=== PATIENT | female | born 1950 | race Caucasian/White ===

== ENCOUNTER 2019-03-25 20:45 | Inpatient (IN) | payer MEDICARE, MEDICAID ==
--- NOTE | 2019-03-25 21:25 | RAD ---
XR Hip Lt 2-3 View History: Falls. Pain. Comparison: None. Findings: Nondisplaced intertrochanteric fracture left femur. There are also fractures of the right s uperior and inferior pelvic rami. Possible left iliac wing fracture. Impression: 1. Nondisplaced left intertrochanteric femur fracture. 2. Fractures of the right superior and inferior pubic rami. 3. Possible nondisplaced left iliac wing fracture. 4. Abnormal appearance right sacral struts concerning for sacral fracture.
[2019-03-26] MEDS ORDERED: Ondansetron PF 4 MG/2 ML Vial ONE (00:57)
[2019-03-26] MEDS ORDERED: Morphine 4 MG/ML VIAL ONE (00:59)
[2019-03-26 01:30] LABS: #Lymphocytes 0.7 thou/uL (1.20-3.40); #Monocytes 0.9 thou/uL (0.11-0.59); #Neutrophils 7.5 thou/uL (1.40-6.50); %Basophils 0.1 % (0.0-1.0); %Eosinophils 0.1 % (0.0-10.0); %Lymphocytes 7.8 % (21.0-51.0); %Monocytes 9.4 % (0.0-10.0); %Neutrophils 82.6 % (42.0-75.0); Hemoglobin 10.9 g/dL (12.0-16.0); Mean Corpuscular HGB CONC 32.2 g/dL (32.0-36.0); Mean Corpuscular Hemoglobin 30.8 pg (27.0-31.0); Mean Corpuscular Volume 95.6 fL (78.0-98.0); Mean Platelet Volume 8.5 fL (7.4-10.4); Platelet Count 190 thou/uL (130-400); Red Blood Cell (RBC) Count 3.55 mill/uL (4.20-5.40); White Blood Cell (WBC) Count 9.1 thou/uL (4.8-10.8)
[2019-03-26 01:45] LABS: INR-International Normal Ratio 1.7; PTT 32.8 SEC (22.9-36.1); Prothrombin Time 20.2 SEC (12.0-14.7)
[2019-03-26 01:53] LABS: ALT (SGPT) 62 U/L (8-55); AST (SGOT) 71 U/L (5-34); Alkaline Phosphatase 114 U/L (40-150); Anion Gap 17 mmol/L (10-20); BUN (Urea Nitrogen) 20 mg/dL (9.8-20.1); Bilirubin, Total 1.4 mg/dL (0.2-1.2); Calc. Creatinine Clearance 0 mL/min (70-130); Calcium 8.8 mg/dL (7.8-10.44); Carbon Dioxide 26 mmol/L (23-31); Chloride 93 mmol/L (98-107); Estimated GFR-MDRD 67; Globulin 3.2 g/dL (2.4-3.5); Glucose 128 mg/dL (80-115); Potassium 3.7 mmol/L (3.5-5.1); Protein, Total 6.2 g/dL (6.0-8.3); Sodium 132 mmol/L (136-145)
[2019-03-26] MEDS ORDERED: hydrALAZINE 20 MG/ML VIAL SLOW IVP PRN (01:53)
[2019-03-26] MEDS ORDERED: Morphine 2 MG/ML SYRINGE SLOW IVP PRN (01:53)
[2019-03-26] MEDS ORDERED: Dextrose 5% in Water 1,000 ML IV PRN (01:53)
[2019-03-26] MEDS ORDERED: Dextrose 50% Abboject 50 ML SYRINGE SLOW IVP PRN (01:53)
[2019-03-26 02:20] LABS: Magnesium 2.4 mg/dL (1.6-2.6); Phosphorus 3.8 mg/dL (2.3-4.7)
[2019-03-26 02:24] LABS: Bilirubin Small (Negative); Blood, Urine Negative (Negative); Clarity CLEAR (Clear); Glucose, Urine (Dipstick) Negative (Negative); Leukocyte Negative (Negative); Nitrite Negative (Negative); Protein, Urine (Dipstick) Negative (Neg-Trace)
--- NOTE | 2019-03-26 03:37 | HP ---
CONSULT: Orthopedic Surgery, Dr. Wiley. HISTORY OF PRESENT ILLNESS: This is a 68-year-old lady, who presented to the ER status post mechanical fall. The patient states that she was letting her dog in the house and the dog knocked her over landing on her left side and buttocks. The patient denies any loss of consciousness. The patient denies having any dizziness or chest pain, or shortness of breath prior to falling. The patient states that she was assisted by a family member after she fell and tried to go to the restroom and fell again landing on her right side. Denies any pain or injury from the second fall. The patient does take Coumadin for atrial fibrillation. The patient denies hitting her head. The patient recently underwent a left catheterization by Dr. Machado approximately 2 weeks ago, as the patient had recent ICD discharge for ventricular tachycardia and ventricular fibrillation. The patient's daughter is concerned about recent weight loss and generalized weakness. Also, reports multiple falls in the last couple of years. The patient's daughter also concerned with malnutrition as the patient has celiac disease and eats a gluten free diet. PAST MEDICAL HISTORY: Coronary artery disease, asthma, COPD, osteoporosis, scoliosis, lupus erythematosus, peptic ulcer disease, sinus node dysfunction, dyslipidemia, myocardial infarction, atrial fibrillation, congestive heart failure. PAST SURGICAL HISTORY: Hysterectomy, toe surgery, coronary artery bypass graft x4, stent placement, pacemaker, internal celiac disease, right hip surgery and right wrist surgery. ALLERGIES: NO KNOWN DRUG ALLERGIES. GLUTEN ALLERGY. SOCIAL HISTORY: The patient lives with her daughter, former smoker. Denies alcohol use, denies drug use. MEDICATIONS: 1. Carvedilol 3.125 mg one tab twice a day. 2. Aspirin 81 mg once a day. 3. Flonase 50 mcg one spray once a day. 4. Metolazone 2.5 mg once daily. 5. Advair. 6. Omeprazole 40 mg. 7. Potassium chloride ER 20 mEq daily. 8. Ipratropium albuterol inhaler. 9. Ventolin HFA. 10. Tirosint 100 mcg one capsule oral every day except Thursday and Thursday. 11. Warfarin 2 mg daily except on Wednesdays and Saturdays only take half tablet. 12. Amiodarone 200 mg, take one tablet once a day. 13. Torsemide 20 mg two tablets once a day. 14. Simvastatin 40 mg. 15. Singulair 10 mg daily. 16. Losartan potassium 25 mg. 17. Coreg 3.125. REVIEW OF SYSTEMS: A 10-point review of systems is negative unless otherwise indicated in the above HPI. PHYSICAL EXAMINATION: VITAL SIGNS: Blood pressure 94/58, pulse 62, respirations 16, temperature 98.1, SpO2 94%. GENERAL: Awake, alert, moderate distress due to pain, frail appearing. HEENT: Head is atraumatic and normocephalic. Pupils are equal, round, and reactive. Mucous membranes moist. Trachea is midline. No JVD. RESPIRATORY: Clear bilaterally. No wheezing, rales, or rhonchi. Equal chest expansion. No distress. CARDIAC: Regular rate, regular rhythm. S1 and S2. No murmurs. No pedal edema. ABDOMEN: Soft, nontender, nondistended. Active bowel sounds. EXTREMITIES: Moves all extremities. No pedal edema. Distal pulses 2+ in all extremities. Tenderness to left hip. NEUROLOGIC: Alert and oriented times person, place, time, and event. No focal deficit. LABORATORY DATA: WBC 9.1, RBC 3.55, hemoglobin 10.9, hematocrit 33.9, platelets 190. PT 20.2, INR 1.7, APTT 32.8. Sodium 132, potassium 3.7, chloride 93, carbon dioxide 26, anion gap 17, BUN 20, creatinine 0.85, estimated GFR 67, glucose 128 , calcium 8.8, total bilirubin 1.4, AST 71, ALT 62, alkaline phos 114, albumin 3.0 , globulin 3.2. Urinalysis pending. DIAGNOSTICS: EKG, AV dual paced. Right hip x-ray, nondisplaced left intertrochanteric femur fracture. Fractures of the right superior and inferior pubic rami. Possible nondisplaced left iliac wing fracture. Abnormal appearance right sacral struts, concerning for sacral fracture. Chest x-ray, hyperinflated, cardiomegaly. Pelvis x-ray, pending official read. IMPRESSION: 1. Status post mechanical fall. 2. Left nondisplaced intertrochanteric femur fracture. 3. Fractures of the right superior and inferior pubic rami. 4. Nondisplaced left iliac wing fracture. 5. Sacral fracture. 6. Hyponatremia. 7. Sarcopenia. 8. History of celiac disease. 9. History of atrial fibrillation, rate controlled, pacemaker, ICD, history of congestive heart failure, history of chronic obstructive pulmonary disease. PLAN: We will admit the patient to the surgical ortho floor. Orthopedic Surgery has been consulted, pending evaluation. We will place the patient n.p.o. We will place the patient on IV maintenance fluids. We will replace electrolytes. We will hold Coumadin. We will place the patient on a pain regimen. We will place a PT /OT screen and also a rehab screen. We will place the patient on a gluten free diet after OR. We will also consult dietary as the patient seems to be malnourished. Plan will be discussed with the attending trauma surgeon after this dictation. Job ID: [id number] MTDD
[2019-03-26] MEDS: Sodium Chloride 0.9% 1,000 ML IV SCH ×3 (04:14→23:28)
[2019-03-26] MEDS: Ondansetron PF 4 MG/2 ML Vial IVP PRN ×2 (04:57→13:45)
[2019-03-26] MEDS: traMADol HCl 50 MG TAB PO SCH ×4 (05:02→23:20)
[2019-03-26] MEDS: Acetaminophen 1,000 MG in Premix Bag 1 BAG IVPB SCH ×4 (05:02→23:18)
[2019-03-26] MEDS: Ibuprofen 200 MG TAB PO SCH ×3 (05:03→23:19)
[2019-03-26] MEDS ORDERED: Carvedilol 3.125 MG TAB PO SCH (07:00)
--- NOTE | 2019-03-26 08:08 | RAD ---
EXAM: XR Chest 1 View Portable PROVIDED CLINICAL HISTORY: Preop COMPARISON: None FINDINGS: Cardiac silhouette is enlarged. Median sternotomy changes are noted. Left subclavian cardiac pacing d evice is noted with the tips overlying the expected locations of RA, RV and coronary sinus. No focal consolidation, pleural fluid or pneumothorax apparent. IMPRESSION: No evidence for an acute cardiopulmonary process.
--- NOTE | 2019-03-26 08:09 | RAD ---
EXAM: XR Pelvis AP STANDARD PROVIDED CLINICAL HISTORY: Trauma COMPARISON: Left hip radiographs performed 03/25/2019 FINDINGS: Left proximal femoral fracture as previously described redemonstrated. Postoperative changes are note d involving the right hip without evidence for hardware complication. No additional fracture is evident with limitations due to radiographic technique and bowel gas overlying the pelvis. IMPRESSION: Left hip fracture is redemonstrated.
[2019-03-26] MEDS: Polyethylene Glycol 3350 17 GM Packet PO SCH (09:04)
[2019-03-26] MEDS: Senokot S 8.6-50 MG TAB PO SCH ×2 (09:04→23:19)
[2019-03-26 09:57] LABS: INR-International Normal Ratio 1.8; PTT 43.2 SEC (22.9-36.1)
[2019-03-26] MEDS ORDERED: Phytonadione 10 MG in Sodium Chloride 0.9% 50 ML IVPB SCH (12:15)
[2019-03-26] MEDS ORDERED: Phytonadione 10 MG/ML AMP PO SCH ×2 (12:15→22:15)
--- NOTE | 2019-03-26 14:53 | PRG ---
DATE OF SERVICE: 03/26/2019 SUBJECTIVE: This is a 68-year-old lady, who presented to the ER status post mechanical fall. The patient was knocked down by her dog causing her to land on her left side and buttocks. The patient reports no overnight events. The patient's pain seems to be well controlled at this time. OBJECTIVE: VITAL SIGNS: Temperature 98.0, pulse 63, respirations 14, SpO2 of 94% on room air, blood pressure 95/47. GENERAL: The patient awake, alert, in no distress. Elderly appearing female. RESPIRATORY: Clear bilateral, equal chest rise and fall, no distress. CARDIAC: Regular rate, regular rhythm. ABDOMEN: Soft, nontender, nondistended. EXTREMITIES: Moves all extremities, no pedal edema. LABORATORY DATA: Repeat PT 21.0, INR 1.8, APTT 43.2. IMPRESSION: 1. Status post mechanical fall. 2. Left nondisplaced intertrochanteric femur fracture. 3. Fractures of the right superior and right inferior pubic rami. 4. Nondisplaced left iliac wing fracture. 5. Sacral fracture. 6. Hyponatremia. 7. Sarcopenia. 8. History of celiac disease. 9. History of atrial fibrillation, rate controlled, pacemaker, ICD, history of congestive heart failure, history of chronic obstructive pulmonary disease. PLAN: Continue pain regimen. We will feed the patient a gluten free diet today as it has been recommended to hold off on surgical repair as the patient's INR is 1.8 and anesthesiology prefers it to be 1.4. Anesthesiology has consulted hospital medicine for reversal of Coumadin with vitamin K. We will continue the patient's pain regimen. We will have PT/OT see the patient postop. We will add Ensure to the patient's diet with meals. Plan was discussed with the attending physician, who agrees. Plan was also discussed with the patient, who agrees. Job ID: [id number]
[2019-03-26] MEDS ORDERED: Sodium Chloride 0.9% 500 ML IV SCH (16:00)
[2019-03-26 16:33] LABS: Hemoglobin 8.5 g/dL (12.0-16.0)
--- NOTE | 2019-03-26 17:27 | PRG ---
DATE OF SERVICE: 03/26/2019 SUBJECTIVE: A 68-year-old female patient, admitted by Corin Campo NP, has a left hip fracture, history of celiac disease, atrial fibrillation, pacemaker, has a left iliac wing fracture, right superior and inferior pubic rami fracture. At home, on Coumadin. PT [address] Wiley had seen her and planning ORIF of her hip as soon as her INR is more normalized. The patient overall is comfortable without complaints. LABORATORY DATA: Otherwise unremarkable, although hemoglobin is 8.5 this morning. Basic metabolic profile normal. Sodium 132. OBJECTIVE: LUNGS: Clear to auscultation. CARDIAC: Regular rate and rhythm. ABDOMEN: Soft. PLAN: Await INR normalization prior to ORIF of hip. Anemia, typed and crossed for 2 units of blood, but hold off transfusion. Job ID: [id number]
--- NOTE | 2019-03-26 17:51 | CON ---
DATE OF CONSULTATION: CHIEF COMPLAINT: Left hip pain. HISTORY OF PRESENT ILLNESS: Ms. Peraza is a 68-year-old female, who fell yesterday. She was letting her dog out of the house when she lost balance. She fell on the left side. She landed hard. She had pain. She was unable to ambulate. She actually was assisted up, but then subsequently fell again. The patient was taken to the Emergency Department by EMS. She has been found to have a left intertrochanteric femur fracture. She has a history of right hip DHS fixation for similar fracture. She was in the hospital recently with Dr. Machado two weeks ago for ventricular tachycardia. PAST MEDICAL HISTORY: Coronary artery disease, asthma, COPD, osteoporosis, scoliosis, lupus, peptic ulcer disease, atrial fibrillation, myocardial infarction, hyperlipidemia, and CHF. PAST SURGICAL HISTORY: Previous hysterectomy, previous right proximal femur fixation for fracture, stent placement, coronary artery bypass graft, right distal radius surgery and foot surgery. ALLERGIES: NO KNOWN DRUG ALLERGIES. SOCIAL HISTORY: The patient denies tobacco, alcohol, or drug use. She lives with her daughter. MEDICATIONS: The patient is on Coumadin. LABORATORY DATA: Her recent INR was 1.7. IMAGES: X-rays of the pelvis and hip demonstrate a very mildly displaced intertrochanteric femur fracture of the left hip. PHYSICAL EXAMINATION: VITAL SIGNS: Temperature is 98, pulse 63, respiratory rate 14, oxygen saturation 94%, and blood pressure is 95/47. GENERAL: She is alert and oriented, sitting upright, in no apparent distress. RESPIRATORY: Breathing comfortably. ABDOMEN: Nondistended and nontender. CARDIOVASCULAR: Pulses regular, palpable peripherally. MUSCULOSKELETAL: The patient's left leg has pain with motion. She has no significant shortening. She does have neurovascular intact status distally. No skin laceration or tear. Upper extremities are atraumatic. IMPRESSION: Left intertrochanteric femur fracture in an elderly female with multiple medical problems. PLAN: At this point, the patient will need operative intervention for her femur. I would plan for dynamic hip screw fixation to restore strength to the proximal femur and allow her to mobilize. Goal will be to prevent complications of prolonged bedrest. She is at elevated risk of complication from surgery given her cardiac history as well as her lung history. She will need to continue to hold her Coumadin. It is still slightly high for surgery today. If it is improved tomorrow, we will proceed. She wants to proceed with surgery and is aware of risks given she has been through a similar procedure in the past. She will be n.p.o. at midnight. She will have appropriate consent. She will have DVT prophylaxis and antibiotic prophylaxis. Job ID: [id number]
[2019-03-26 20:05] LABS: INR-International Normal Ratio 1.6; Prothrombin Time 19.4 SEC (12.0-14.7)
--- NOTE | 2019-03-26 22:04 | PDOC.PN ---
- Subjective Encounter Start Date: 03/26/19 Encounter Start Time: 14:00 Patient seen and examined for elevated INR. No new complaints. No overnight events - Objective MAR Reviewed: Yes Vital Signs & Weight: Vital Signs (12 hours) Temp Pulse Resp BP Pulse Ox 03/26/19 20:00 98.6 F 65 18 95/41 L 95 03/26/19 18:12 101/56 L 03/26/19 17:30 88/50 L 03/26/19 16:00 97.9 F 93 12 84/46 L 92 L 03/26/19 15:40 74/39 L 03/26/19 15:39 90/39 L 03/26/19 11:30 97.9 F 60 18 91/49 L 94 L Weight Admit Weight 85 lb Weight 85 lb 8 oz I&O: 03/25/19 03/26/19 03/27/19 06:59 06:59 06:59 Intake Total 150 Output Total 450 Balance -300 Result Diagrams: 03/27/19 03:19 03/27/19 03:19 Radiology Reviewed by me: Yes (CXR - No infiltrate) Phys Exam - Physical Examination Constitutional: NAD Respiratory: no wheezing, no rhonchi Cardiovascular: RRR, no rub Gastrointestinal: soft, non-tender, positive bowel sounds Musculoskeletal: no edema Neurological: moves all 4 limbs Dx/Plan - Plan DVT proph w/SCDs IMPRESSION: Elevated INR 1.8 due to Warfarin Chronic Anemia CKD 2 PLAN: Will try 10 mg PO Vit K to bring INR below 1.4 for spinal anesthesia. Will recheck INR later today and in AM Full code. DPOA - self/family Thank you for this consultation. Will sign off if INR <1.4 Review of Systems - Review of Systems Respiratory: negative: Cough, Dry, Shortness of Breath, Hemoptysis, SOB with Excertion, Pleuritic Pain, Sputum, Wheezing Cardiovascular: negative: chest pain, palpitations, orthopnea, paroxysmal nocturnal dyspnea, edema, light headedness, other - Medications/Allergies Allergies/Adverse Reactions: Allergies Allergy/AdvReac Type Severity Reaction Status Date / Time gluten Allergy Verified 03/26/19 04:01 ibuprofen AdvReac Verified 03/26/19 07:28 Medications: Current Medications Albuterol/Ipratropium (Duoneb) 3 ml NEB Q4H PRN PRN Reason: Wheezing Dextrose/Water (Dextrose 50%) 25 gm SLOW IVP PRN PRN PRN Reason: Hypoglycemia Glucagon (Glucagon) 1 mg IM PRN PRN PRN Reason: Hypoglycemia Hydralazine HCl (Apresoline) 10 mg SLOW IVP Q4H PRN PRN Reason: SBP > 170 or DBP > 100 Hydrocortisone Sodium Succinate (Solu-Cortef) 25 mg IVP Q6HR [facility] Dextrose/Water (D5w) 1,000 mls @ 0 mls/hr IV .Q0M PRN PRN Reason: Hypoglycemia Sodium Chloride (Normal Saline 0.9%) 1,000 mls @ 75 mls/hr IV .[id number] [facility] Last Admin: 03/26/19 16:09 Dose: 1,000 mls Acetaminophen 1,000 mg/ Device 100 mls @ 400 mls/hr IVPB Q6HR [facility] Stop: 03/27/19 00:13 Last Admin: 03/26/19 18:08 Dose: 100 mls Cefazolin Sodium/Dextrose 2 gm (/ Device) 50 mls @ 100 mls/hr IVPB 0800,1600, 2359 [facility] Ibuprofen (Motrin) 400 mg PO Q8HR [facility] Last Admin: 03/26/19 15:16 Dose: Not Given Levothyroxine Sodium (Synthroid) 50 mcg PO SuSa@0600 [facility] Levothyroxine Sodium (Synthroid) 100 mcg PO MoTuWeThFr@0600 [facility] Morphine Sulfate (Morphine) 2 mg SLOW IVP Q2H PRN PRN Reason: Mild Pain (1-3) Last Admin: 03/26/19 04:15 Dose: 2 mg Ondansetron HCl (Zofran Odt) 4 mg PO Q6H PRN PRN Reason: Nausea/Vomiting Ondansetron HCl (Zofran) 4 mg IVP Q6H PRN PRN Reason: Nausea Last Admin: 03/26/19 13:45 Dose: 4 mg Pantoprazole Sodium (Protonix) 40 mg PO DAILY [facility] Phytonadione (Aquamephyton) 5 mg PO NOW [facility] Polyethylene Glycol (Miralax) 17 gm PO DAILY [facility] Last Admin: 03/26/19 09:04 Dose: Not Given Senna/Docusate Sodium (Senokot S) 2 tab PO BID [facility] Last Admin: 03/26/19 09:04 Dose: Not Given Sodium Chloride (Flush - Normal Saline) 10 ml IVF PRN PRN PRN Reason: Saline Flush Tramadol HCl (Ultram) 50 mg PO Q6HR [facility] Last Admin: 03/26/19 18:07 Dose: 50 mg Tramadol HCl (Ultram) 50 mg PO Q6H PRN PRN Reason: Breakthrough Pain
[2019-03-26] MEDS: Hydrocortisone Sod Succ/PF 100 mg/2 ml Vial IVP SCH (23:20)
[2019-03-26] MEDS: Ondansetron ODT 4 MG TAB PO PRN (23:24)
[2019-03-27 04:04] LABS: #Lymphocytes 0.6 thou/uL (1.20-3.40); #Monocytes 0.4 thou/uL (0.11-0.59); #Neutrophils 5.5 thou/uL (1.40-6.50); %Basophils 0.5 % (0.0-1.0); %Eosinophils 0.2 % (0.0-10.0); %Lymphocytes 8.8 % (21.0-51.0); %Monocytes 5.4 % (0.0-10.0); %Neutrophils 85.1 % (42.0-75.0); Hemoglobin 9.7 g/dL (12.0-16.0); Mean Corpuscular HGB CONC 31.9 g/dL (32.0-36.0); Mean Corpuscular Hemoglobin 30.6 pg (27.0-31.0); Mean Corpuscular Volume 95.9 fL (78.0-98.0); Mean Platelet Volume 8.3 fL (7.4-10.4); Platelet Count 183 thou/uL (130-400); RBC Distribution Width 14.9 % (11.5-14.5); Red Blood Cell (RBC) Count 3.18 mill/uL (4.20-5.40); White Blood Cell (WBC) Count 6.5 thou/uL (4.8-10.8)
[2019-03-27 04:09] LABS: INR-International Normal Ratio 1.3
[2019-03-27 04:47] LABS: Anion Gap 9 mmol/L (10-20); BUN (Urea Nitrogen) 16 mg/dL (9.8-20.1); Calc. Creatinine Clearance 44 mL/min (70-130); Calcium 8.4 mg/dL (7.8-10.44); Carbon Dioxide 29 mmol/L (23-31); Chloride 102 mmol/L (98-107); Estimated GFR-MDRD 77; Glucose 128 mg/dL (80-115); Magnesium 2.1 mg/dL (1.6-2.6); Phosphorus 2.5 mg/dL (2.3-4.7); Potassium 3.7 mmol/L (3.5-5.1); Sodium 136 mmol/L (136-145)
[2019-03-27] MEDS: Levothyroxine Sodium 50 MCG TAB PO SCH (05:54)
[2019-03-27] MEDS: Hydrocortisone Sod Succ/PF 100 mg/2 ml Vial IVP SCH ×4 (05:55→23:53)
[2019-03-27] MEDS: traMADol HCl 50 MG TAB PO SCH ×4 (05:55→23:53)
[2019-03-27] MEDS: CEFAZOLIN 2 GM in Premix Bag 1 BAG IVPB SCH ×3 (08:00→23:51)
[2019-03-27] MEDS ORDERED: HYDROmorphone 2 MG/ML VIAL ONE (08:17)
[2019-03-27] MEDS ORDERED: Glycopyrrolate 0.2 MG/ML 5 ML SYRINGE ONE ×2 (08:17→13:50)
[2019-03-27] MEDS ORDERED: Fentanyl 100 MCG/2 ML VIAL ONE ×2 (08:18→10:02)
[2019-03-27] MEDS: Polyethylene Glycol 3350 17 GM Packet PO SCH (09:00)
[2019-03-27] MEDS: Senokot S 8.6-50 MG TAB PO SCH ×2 (09:00→20:47)
[2019-03-27] MEDS ORDERED: SUGAMMADEX SODIUM 200 MG/2 ML VIAL ONE (09:35)
[2019-03-27] MEDS ORDERED: HYDROmorphone 2 MG/ML VIAL SLOW IVP PRN (09:44)
[2019-03-27] MEDS ORDERED: Promethazine HCl 25 MG/ML VIAL SLOW IVP PRN (09:44)
[2019-03-27] MEDS ORDERED: Promethazine HCl 25 MG/ML VIAL IM PRN (09:44)
[2019-03-27] MEDS ORDERED: Ondansetron HCl/PF 4 MG/2 ML Vial IVP PRN (09:44)
[2019-03-27] MEDS ORDERED: Morphine Sulfate 2 MG/ML SYRINGE SLOW IVP PRN (09:44)
--- NOTE | 2019-03-27 11:25 | RAD ---
EXAM: XR Hip Lt 2-3 View PROVIDED CLINICAL HISTORY: ORIF left hip COMPARISON: None FINDINGS: Spot fluoroscopic frontal and lateral views of left hip demonstrate interval internal fixation of pre viously described left proximal femoral fracture. IMPRESSION: As above.
--- NOTE | 2019-03-27 12:25 | OP ---
DATE OF PROCEDURE: 03/27/2019 PROCEDURE PERFORMED: Open reduction and fixation of left intertrochanteric femur fracture with dynamic hip screw and plate. PREOPERATIVE DIAGNOSIS: Left intertrochanteric femur fracture. POSTOPERATIVE DIAGNOSIS: Left intertrochanteric femur fracture. COMPLICATIONS: None. ESTIMATED BLOOD LOSS: 100 mL. IMPLANT: Synthes 3-hole 135 degree dynamic hip screw and plate. INDICATIONS: Ms. Peraza is a 68-year-old female, who has fallen. She fractured the left proximal femur. She was indicated for open reduction and fixation to restore anatomic alignment and stabilize the femur, so that she can mobilize. Risks have been reviewed in detail. She has elected to proceed with the operation. DESCRIPTION OF PROCEDURE: Ms. Peraza was identified in the preoperative holding area. Her correct extremity was marked. She was carried to the operating room. She was positioned supine. General anesthesia was induced. A multidisciplinary time-out was performed. The left lower extremity was prepped and draped in sterile fashion. We began the procedure with reduction of the fracture on the traction table. We pulled traction and rotation. We took x-ray images confirming reduction was complete. At this point, we made a small incision over the lateral thigh. We dissected down through the subcutaneous tissues to the fascia, which was opened. We then anteriorly retracted the vastus lateralis. We split the lateralis posteriorly. We cleared the soft tissues from the bony cortex. At this point, we applied a 135 degree guide. We placed a guide pin in the center position of the femoral head. We then proceeded to over-ream the guide pin. We measured an appropriate length. We placed a 95 mm screw. We placed a 3-hole side plate. Three screws were placed in the plate. At this point, we took final images in orthogonal planes. We thoroughly irrigated and closed with #1 Vicryl suture, 2-0 Vicryl suture, and nilson for the skin. A sterile dressing was applied. The patient was taken to the recovery room in good condition. Job ID: [id number]
[2019-03-27] MEDS ORDERED: Lidocaine 1% PF 5 ML VIAL ONE (13:50)
[2019-03-27] MEDS ORDERED: Dexamethasone 20 MG/5 ML VIAL ONE (13:50)
[2019-03-27] MEDS ORDERED: PROPOFOL 200 MG/20 ML VIAL ONE (13:50)
[2019-03-27] MEDS ORDERED: Ondansetron PF 4 MG/2 ML Vial ONE (13:50)
[2019-03-27] MEDS: Sodium Chloride 0.9% 1,000 ML IV SCH (16:07)
[2019-03-27] MEDS: Mometasone/Formoterol 120 PUFF INHALER INH SCH (19:46)
[2019-03-27] MEDS: Montelukast Sodium 10 mg Tablet PO SCH (20:47)
--- NOTE | 2019-03-27 23:44 | PRG ---
DATE OF SERVICE: 03/27/2019 SUBJECTIVE: This is a 68-year-old lady who presented to the ER status post mechanical fall. The patient is postop day zero status post open reduction and internal fixation of left intertrochanteric femur fracture with dynamic hip screw and plate. The patient had no overnight events. The patient is just arriving to the room from PACU. The patient is awake, alert, no distress. Reports the pain is well controlled. OBJECTIVE: VITAL SIGNS: Temperature 98.5, pulse 65, respirations 20, SpO2 of 98% on room air, blood pressure 107/55. GENERAL: Elderly, frail-appearing female, awake, alert, in no distress. RESPIRATORY: Bilateral breath sounds clear, no distress. CARDIAC: Regular rate, regular rhythm. EXTREMITIES: Moves all extremities. No pedal edema, left hip dressing clean, dry, and intact. IMPRESSION: 1. Status post mechanical fall. 2. Left nondisplaced intertrochanteric femur fracture. 3. History of celiac disease. 4. History of atrial fibrillation, rate controlled, pacemaker, history of congestive heart failure and chronic obstructive pulmonary disease. PLAN: 1. Continue pain regimen. We will restart the patient's gluten free diet. 2. Plan for PT, OT to work with the patient today postop. The patient is pending rehab screen. Plan was discussed with the attending physician, who agrees. Job ID: [id number]
[2019-03-27] MEDS: Ondansetron ODT 4 MG TAB PO PRN (23:53)
[2019-03-28 04:38] LABS: #Lymphocytes 0.6 thou/uL (1.20-3.40); #Monocytes 0.9 thou/uL (0.11-0.59); #Neutrophils 12.6 thou/uL (1.40-6.50); %Basophils 0.1 % (0.0-1.0); %Eosinophils 0.1 % (0.0-10.0); %Monocytes 6.2 % (0.0-10.0); %Neutrophils 89.6 % (42.0-75.0); Hemoglobin 8.3 g/dL (12.0-16.0); Mean Corpuscular Hemoglobin 30.7 pg (27.0-31.0); Platelet Count 224 thou/uL (130-400); White Blood Cell (WBC) Count 14.1 thou/uL (4.8-10.8)
[2019-03-28] MEDS: Levothyroxine Sodium 100 MCG TAB PO SCH (06:33)
[2019-03-28] MEDS: traMADol HCl 50 MG TAB PO SCH ×4 (06:33→23:51)
[2019-03-28] MEDS: Ondansetron ODT 4 MG TAB PO PRN ×2 (06:33→23:51)
[2019-03-28] MEDS: Hydrocortisone Sod Succ/PF 100 mg/2 ml Vial IVP SCH ×4 (06:33→23:51)
[2019-03-28] MEDS: Mometasone/Formoterol 120 PUFF INHALER INH SCH ×2 (07:10→18:56)
[2019-03-28] MEDS ORDERED: Warfarin Sodium 5 MG TAB PO SCH (08:45)
[2019-03-28] MEDS ORDERED: Aspirin 81 mg Enteric Coated Tablet PO SCH ×2 (09:00)
[2019-03-28] MEDS ORDERED: Potassium Chloride 10 MEQ TAB PO SCH (09:00)
[2019-03-28] MEDS ORDERED: Amiodarone 200 MG TAB PO SCH (09:00)
[2019-03-28 09:08] LABS: #Lymphocytes 0.7 thou/uL (1.20-3.40); #Monocytes 1.4 thou/uL (0.11-0.59); #Neutrophils 13.1 thou/uL (1.40-6.50); %Eosinophils 0.2 % (0.0-10.0); %Lymphocytes 4.8 % (21.0-51.0); %Monocytes 9.1 % (0.0-10.0); %Neutrophils 85.9 % (42.0-75.0); Hemoglobin 8.7 g/dL (12.0-16.0); Mean Corpuscular HGB CONC 31.2 g/dL (32.0-36.0); Mean Corpuscular Hemoglobin 29.9 pg (27.0-31.0); Mean Corpuscular Volume 95.9 fL (78.0-98.0); Mean Platelet Volume 7.6 fL (7.4-10.4); Platelet Count 258 thou/uL (130-400); RBC Distribution Width 15.2 % (11.5-14.5); Red Blood Cell (RBC) Count 2.92 mill/uL (4.20-5.40); White Blood Cell (WBC) Count 15.2 thou/uL (4.8-10.8)
[2019-03-28] MEDS: Polyethylene Glycol 3350 17 GM Packet PO SCH ×2 (10:30)
[2019-03-28] MEDS: Aspirin 81 mg Enteric Coated Tablet PO SCH ×2 (10:30→20:37)
[2019-03-28] MEDS: Ferrous Sulfate 325 MG TAB PO SCH ×2 (10:31→16:03)
[2019-03-28] MEDS: Carvedilol 3.125 MG TAB PO SCH ×3 (10:31→20:55)
[2019-03-28] MEDS: Senokot S 8.6-50 MG TAB PO SCH ×2 (10:31→20:55)
[2019-03-28] MEDS: Ascorbic Acid 500 mg Chewable Tablet PO SCH ×2 (10:32→16:03)
[2019-03-28] MEDS: CEFAZOLIN 2 GM in Premix Bag 1 BAG IVPB SCH (10:32)
[2019-03-28] MEDS: Fluticasone Propionate Nasal Spray 16 gm Bottle NASAL SCH (10:42)
[2019-03-28] MEDS: Ibuprofen 800 MG TAB PO SCH ×2 (11:06→18:00)
--- NOTE | 2019-03-28 13:09 | PRG ---
DATE OF SERVICE: 03/28/2019 SUBJECTIVE: A 68-year-old female, status post mechanical fall. Postop day 1 from open reduction and internal fixation of left intertrochanteric femur fracture with dynamic hip screw and plate. No overnight events. The patient's pain is well controlled with medications. Nursing reports, the patient has not been drinking Ensure Enlive and she has had a poor appetite. The patient said she is willing to start drinking these for protein supplementation. OBJECTIVE: VITAL SIGNS: Blood pressure 80/48, temperature 97.9, pulse 77, respirations 14, and SpO2 of 88% on room air. GENERAL: Thin female, awake and alert, in no acute distress. HEENT: Atraumatic and normocephalic. NECK: Trachea midline, supple. RESPIRATORY: Normal respiratory effort. Equal chest rise and fall. CARDIAC: No peripheral edema. EXTREMITIES: Moves all extremities. Left hip dressing clean, dry, and intact. LABORATORY DATA: Hemoglobin 8.7, hematocrit 28, and white blood cell count 15.2. DIAGNOSTIC IMAGING: No new diagnostics to review. SECONDARY IMPRESSION: 1. Status post mechanical fall. 2. Left nondisplaced intertrochanteric femur fracture. 3. Celiac disease. 4. Atrial fibrillation, status post pacemaker placement. 5. Congestive heart failure. 6. Chronic obstructive pulmonary disease. PLAN: Continue the patient's current pain regimen. Continue gluten-free diet with Ensure Enlive t.i.d. The patient will continue physical and occupational therapy. She is pending her rehab screen at this time. Continue current bowel regimen. We will discontinue Young at this time. We will resume the patient's warfarin with dose of 5 mg today and monitor PT/INRs daily. She is status post vitamin K, it will likely take several days to get the patient to therapeutic range. In regard to her home medication, we will start the patient on aspirin b.i.d. until her INR is within therapeutic range. We will restart low-dose Coreg. Hold losartan due to borderline low BPs and resume once indicated. We will resume the patient's home potassium chloride. This patient was seen and evaluated by Dr. Saavedra during morning rounds. Plan was discussed with the patient, who is in agreement with the plan. Job ID: [id number] [facility]
[2019-03-28] MEDS: Gabapentin 100 MG CAP PO SCH ×2 (16:03→20:55)
[2019-03-28] MEDS: Warfarin Sodium 5 MG TAB PO SCH (16:03)
[2019-03-28] MEDS: Montelukast Sodium 10 mg Tablet PO SCH (20:37)
[2019-03-28] MEDS: Atorvastatin Calcium 20 MG TAB PO SCH (20:37)
[2019-03-28] MEDS: Amiodarone 200 MG TAB PO SCH (21:16)
[2019-03-28] MEDS: Sodium Chloride 0.9% 1,000 ML IV SCH (22:38)
[2019-03-29] MEDS: Ibuprofen 800 MG TAB PO SCH (03:24)
[2019-03-29] MEDS: traMADol HCl 50 MG TAB PO SCH ×4 (05:39→23:51)
[2019-03-29] MEDS: Hydrocortisone Sod Succ/PF 100 mg/2 ml Vial IVP SCH ×4 (05:40→23:15)
[2019-03-29] MEDS: Levothyroxine Sodium 100 MCG TAB PO SCH (05:40)
[2019-03-29] MEDS ORDERED: Sodium Chloride 0.9% 500 ML IVPB SCH (06:00)
[2019-03-29 06:13] LABS: Hemoglobin 8.4 g/dL (12.0-16.0); Mean Corpuscular HGB CONC 31.7 g/dL (32.0-36.0); Mean Corpuscular Hemoglobin 30.4 pg (27.0-31.0); Mean Corpuscular Volume 95.8 fL (78.0-98.0); Platelet Count 231 thou/uL (130-400); RBC Distribution Width 15.4 % (11.5-14.5); Red Blood Cell (RBC) Count 2.76 mill/uL (4.20-5.40); White Blood Cell (WBC) Count 12.9 thou/uL (4.8-10.8)
[2019-03-29 06:30] LABS: INR-International Normal Ratio 1.1; Prothrombin Time 14.6 SEC (12.0-14.7)
[2019-03-29 06:31] LABS: PTT 29.6 SEC (22.9-36.1)
[2019-03-29 06:33] LABS: Anion Gap 11 mmol/L (10-20); BUN (Urea Nitrogen) 31 mg/dL (9.8-20.1); Calc. Creatinine Clearance 26 mL/min (70-130); Calcium 8.4 mg/dL (7.8-10.44); Carbon Dioxide 24 mmol/L (23-31); Chloride 105 mmol/L (98-107); Estimated GFR-MDRD 42; Glucose 128 mg/dL (80-115); Potassium 4.6 mmol/L (3.5-5.1); Sodium 135 mmol/L (136-145)
[2019-03-29] MEDS: Mometasone/Formoterol 120 PUFF INHALER INH SCH ×2 (07:03→18:21)
[2019-03-29] MEDS: Senokot S 8.6-50 MG TAB PO SCH ×2 (08:37→23:11)
[2019-03-29] MEDS: Ascorbic Acid 500 mg Chewable Tablet PO SCH ×2 (08:37→17:17)
[2019-03-29] MEDS: Ferrous Sulfate 325 MG TAB PO SCH ×2 (08:37→17:31)
[2019-03-29] MEDS: Gabapentin 100 MG CAP PO SCH ×3 (08:37→23:12)
[2019-03-29] MEDS: Aspirin 81 mg Enteric Coated Tablet PO SCH ×2 (08:37→23:12)
[2019-03-29] MEDS: Carvedilol 3.125 MG TAB PO SCH ×2 (08:38→23:12)
[2019-03-29] MEDS: Polyethylene Glycol 3350 17 GM Packet PO SCH (08:38)
[2019-03-29] MEDS: Fluticasone Propionate Nasal Spray 16 gm Bottle NASAL SCH (08:38)
[2019-03-29] MEDS ORDERED: Furosemide 40 MG/4 ML VIAL ONE ×2 (11:34→16:01)
[2019-03-29 11:36] LABS: Actual Bicarbonate (HCO3a) 22.5 mEq/L (22-28); Base Excess (BEa) -3.5 mEq/L (-2.0 to +3.0); CO2 Tension 44.6 mmHg (35.0-45.0); Calcium, Ionized 1.19 mmol/L (1.12-1.30); Carboxyhemoglobin (COHb) 1.2 gm% (0.0-3.0); Hemoglobin (Hb) 9.7 g/dL (12.0-16.0); Potassium - ABG Lab 4.47 mmol/L (3.70-5.30); pH, Arterial 7.32 (7.35-7.45)
[2019-03-29 11:39] LABS: O2 Tension (PaO2) 43.8 mmHg (> 80.0); Puncture Site LRA
--- NOTE | 2019-03-29 11:49 | PRG ---
DATE OF SERVICE: 03/29/2019 SUBJECTIVE: A 68-year-old female, status post mechanical fall, postop day 2 from open reduction and internal fixation of left intertrochanteric femur fracture with dynamic hip screw and plate. No overnight events. The patient's pain is well controlled with medication. She has been declining gabapentin. The patient is requesting DuoNeb treatments this morning. OBJECTIVE: VITAL SIGNS: Blood pressure 81/49; temperature 97.8; pulse 125; respirations 14; and SpO2 of 85% on room air, 93% with 4 L nasal cannula. GENERAL: Thin female, awake and alert, in no acute distress. HEENT: Atraumatic and normocephalic. NECK: Trachea midline. Supple. CARDIAC: Regular rate and rhythm. No murmurs. RESPIRATORY: Inspiratory and expiratory wheezing. Prolonged expiratory phase. Equal chest rise and fall. CARDIAC: No peripheral edema. EXTREMITIES: Moves all extremities x4. Left hip dressing dry, clean, and intact. LABORATORY DATA: Hemoglobin 8.4, hematocrit 26.5, and white blood cell count 12.9. INR 1.1. Sodium 135, BUN 31, mag 2, and phos 4. DIAGNOSTIC IMAGING: No new diagnostics to review. IMPRESSION: 1. Status post mechanical fall. 2. Chronic obstructive pulmonary disease exacerbation. 3. Left nondisplaced intertrochanteric femur fracture. 4. Celiac disease. 5. Atrial fibrillation, status post pacemaker placement. 6. Congestive heart failure. PLAN: Continue the patient's current pain regimen. We will discontinue gabapentin as she has not been taking it. Continue gluten-free diet with Ensure Enlive t.i.d. The patient will continue physical and occupational therapy. We are pending rehab placement. Continue current bowel regimen. The patient received vitamin K prior to surgery. Her INR further decreased to 1.1 today, after warfarin 5 mg yesterday evening. We will continue titrating her warfarin to therapeutic INR. We will continue to give warfarin to trend INR to therapeutic range while the patient is on aspirin b.i.d. until her INR reaches therapeutic range. She is currently on her home low-dose Coreg, but we are holding losartan due to low blood pressures. We will resume this once indicated. Due to the large jump in the patient's potassium chloride after resuming home dose, we will hold off on this for now. The patient will receive 1 unit of packed red blood cells today due to anemia with hypotension and worsening kidney function. Due to her congestive heart failure , we will give a dose of IV Lasix 20 mg after transfusion. This patient was seen and evaluated by Dr. Saavedra during morning rounds. Plan was discussed with the patient, who is in agreement with the plan. Job ID: [id number] MTDD
[2019-03-29] MEDS: Sodium Chloride 0.9% 1,000 ML IV SCH (11:53)
[2019-03-29] MEDS ORDERED: Furosemide 20 MG/2 ML VIAL SLOW IVP SCH (12:30)
--- NOTE | 2019-03-29 12:34 | RAD ---
CHEST ONE VIEW: 03/29/19 HISTORY: Shortness of breath, low O2 sats. COMPARISON: 03/26/19. FINDINGS: Decreased inspiratory effort. Marked cardiomegaly. Postop midline sternotomy and left ICD changes. In terval development of fairly extensive bilateral alveolar and interstitial opacities throughout both lungs certainly raising concern for bilateral pulmonary edema. Diffuse bone demineralization. IMPRESSION: Interval development of extensive bilateral interstitial and alveolar opacity changes throughout both lungs concerning for bilateral pulmonary edema with cardiomegaly and bilateral pleural effusions. Co ntinued short term follow-up for clearing. Code T POS: TPC
[2019-03-29] MEDS ORDERED: Calcium Chloride 1 GM/10 ML Abboject SYRINGE IVP SCH (16:15)
[2019-03-29] MEDS ORDERED: DOPamine 400 MG/D5W 250 ML 250 ML IVPB SCH (16:15)
[2019-03-29] MEDS ORDERED: Furosemide 40 MG/4 ML VIAL SLOW IVP SCH ×2 (16:15→17:30)
[2019-03-29] MEDS: Warfarin Sodium 5 MG TAB PO SCH (17:31)
[2019-03-29] MEDS: Acetaminophen 1,000 MG in Premix Bag 1 BAG IVPB SCH ×2 (17:32→23:13)
[2019-03-29] MEDS: Atorvastatin Calcium 20 MG TAB PO SCH (23:12)
[2019-03-29] MEDS: Montelukast Sodium 10 mg Tablet PO SCH (23:12)
[2019-03-29] MEDS: Amiodarone 200 MG TAB PO SCH (23:15)
[2019-03-30 04:44] LABS: INR-International Normal Ratio 1.5; Prothrombin Time 18.5 SEC (12.0-14.7)
[2019-03-30 04:54] LABS: Lactic Acid 1.2 mmol/L (0.5-2.2)
[2019-03-30 04:57] LABS: Anion Gap 13 mmol/L (10-20); BUN (Urea Nitrogen) 35 mg/dL (9.8-20.1); Calc. Creatinine Clearance 25 mL/min (70-130); Calcium 8.5 mg/dL (7.8-10.44); Carbon Dioxide 25 mmol/L (23-31); Chloride 104 mmol/L (98-107); Estimated GFR-MDRD 41; Glucose 136 mg/dL (80-115); Phosphorus 4.2 mg/dL (2.3-4.7); Potassium 3.8 mmol/L (3.5-5.1); Sodium 138 mmol/L (136-145)
[2019-03-30] MEDS: Acetaminophen 1,000 MG in Premix Bag 1 BAG IVPB SCH ×2 (05:21→13:29)
[2019-03-30] MEDS: Hydrocortisone Sod Succ/PF 100 mg/2 ml Vial IVP SCH ×2 (05:22→13:29)
[2019-03-30] MEDS: Levothyroxine Sodium 100 MCG TAB PO SCH (05:22)
[2019-03-30 05:27] LABS: Band 11 % (5-11); Hemoglobin 10.3 g/dL (12.0-16.0); Lymphocytes 6 % (21-51); MDiff Complete? YES; Mean Corpuscular HGB CONC 32.9 g/dL (32.0-36.0); Mean Corpuscular Hemoglobin 30.8 pg (27.0-31.0); Mean Corpuscular Volume 93.4 fL (78.0-98.0); Monocytes 3 % (0-10); Neutrophil 80 % (42-75); Platelet Count 215 thou/uL (130-400); Red Blood Cell (RBC) Count 3.33 mill/uL (4.20-5.40); White Blood Cell (WBC) Count 13.7 thou/uL (4.8-10.8)
[2019-03-30] MEDS: traMADol HCl 50 MG TAB PO SCH ×3 (07:03→20:27)
[2019-03-30] MEDS ORDERED: Potassium Chloride 20 MEQ TAB PO SCH (07:15)
[2019-03-30] MEDS: Mometasone/Formoterol 120 PUFF INHALER INH SCH ×2 (07:42→18:57)
[2019-03-30] MEDS: Ferrous Sulfate 325 MG TAB PO SCH ×2 (08:10→17:38)
[2019-03-30] MEDS: Aspirin 81 mg Enteric Coated Tablet PO SCH ×2 (08:10→20:29)
[2019-03-30] MEDS: Senokot S 8.6-50 MG TAB PO SCH ×3 (08:10→20:40)
[2019-03-30] MEDS: Ascorbic Acid 500 mg Chewable Tablet PO SCH ×2 (08:11→17:38)
[2019-03-30] MEDS: Gabapentin 100 MG CAP PO SCH ×4 (08:11→20:38)
[2019-03-30] MEDS: Carvedilol 3.125 MG TAB PO SCH ×2 (08:11→20:30)
[2019-03-30] MEDS: Fluticasone Propionate Nasal Spray 16 gm Bottle NASAL SCH (08:11)
[2019-03-30] MEDS: Polyethylene Glycol 3350 17 GM Packet PO SCH (08:12)
--- NOTE | 2019-03-30 08:18 | RAD ---
PORTABLE CHEST: HISTORY: CHF exacerbation. COMPARISON: Prior day's study. FINDINGS: Heart size is enlarged. There are postop sternotomy changes. An internal defibrillator device is pr esent. Pulmonary edema changes appear slightly improved as compared to the prior exam. IMPRESSION: Slight improvement to the pulmonary edema change. POS: YUE
[2019-03-30] MEDS ORDERED: Furosemide 40 MG/4 ML VIAL SLOW IVP SCH (09:00)
[2019-03-30] MEDS: DOPamine 400 MG/D5W 250 ML 250 ML IVPB SCH (10:01)
--- NOTE | 2019-03-30 13:01 | PRG ---
DATE OF SERVICE: 03/30/2019 SUBJECTIVE: A 68-year-old female status post mechanical fall, postop day 3 from open reduction and internal fixation of left intertrochanteric femur fracture with dynamic hip screw and plate. The patient became hypoxic yesterday afternoon and was moved down on non-rebreather to the [facility]. She received 20 mg of IV Lasix and 1 unit packed red blood cells. She afterwards received another 40 IV Lasix. This morning, she is currently on high-flow nasal cannula at 35. She has no questions or complaints this morning. OBJECTIVE: VITAL SIGNS: Blood pressure 103/43, temperature 97.2, pulse 80, respiratory rate 23, and currently on high-flow nasal cannula. GENERAL: Thin female, awake and alert, in no acute distress. HEENT: Atraumatic, normocephalic. Wearing high-flow nasal cannula. NECK: Trachea midline. Supple. CARDIAC: Regular rate and rhythm. No murmurs. No peripheral edema. RESPIRATORY: Inspiratory and expiratory wheezing. Prolonged expiratory phase. Equal chest rise and fall. EXTREMITIES: Moves extremities x4. LABORATORY DATA: Hemoglobin 10.3, hematocrit 31.1, white blood cell count 13.7, INR 1.5. ABG yesterday afternoon; pH 7.32, pO2 of 43.8, pCO2 of 44.6. Creatinine 1.3, glucose 136, BNP 2562 yesterday, 2836 today. Chest x-ray on 03/29/2019 at 1123 hours, interval development of extensive bilateral interstitial and alveolar opacity changes throughout both lungs concerning for bilateral pulmonary edema with cardiomegaly and bilateral pleural effusions. Continued short-term followup for clearing. Chest x-ray on 03/30/2019, 0600 hours, slight improvement to the pulmonary edema. PLAN: We will continue the patient's current pain regimen and continue gluten free diet with Ensure Enlive t.i.d. and continue working with physical and occupational therapy. Pending rehab placement. Yesterday, the patient developed heart failure exacerbation in combination to her COPD requiring a non-rebreather and now this morning on high-flow nasal cannula. She is currently diuresing. She received another 40 mg IV Lasix this morning. We will continue strict I and Os. She has a Young in place to measure output. In regard to her anemia, she received 1 unit packed red blood cells yesterday and hemoglobin has improved. She is currently on vitamin C and iron. In regard to her COPD, she is on DuoNeb q.4 hours, hydrocortisone 25 mg IV q.6 hours, Dulera, and Singulair. Her chest x-ray has shown some improvement with diuresis. We will increase her dobutamine from 3 to 5 due to hypotension. The patient did not receive her warfarin 5 mg last night due to being on BiPAP. We will resume this today and continue to monitor serial PT/INRs. This patient was seen and evaluated by Dr. Saavedra during morning rounds. Plan was discussed with the patient and is in agreement with the plan. Job ID: [id number]
[2019-03-30] MEDS: Warfarin Sodium 5 MG TAB PO SCH (17:38)
[2019-03-30] MEDS: methylPREDNISolone Sod Succ/PF 125 MG/2 ML VIAL IVP SCH (17:38)
[2019-03-30] MEDS: Montelukast Sodium 10 mg Tablet PO SCH (20:29)
[2019-03-30] MEDS: Amiodarone 200 MG TAB PO SCH (20:29)
[2019-03-30] MEDS: Atorvastatin Calcium 20 MG TAB PO SCH ×2 (20:30→20:39)
[2019-03-31] MEDS: traMADol HCl 50 MG TAB PO SCH ×4 (00:09→18:14)
[2019-03-31] MEDS: methylPREDNISolone Sod Succ/PF 125 MG/2 ML VIAL IVP SCH ×3 (00:10→15:19)
[2019-03-31 02:47] LABS: Hemoglobin 10.7 g/dL (12.0-16.0); Mean Corpuscular HGB CONC 32.4 g/dL (32.0-36.0); Mean Corpuscular Hemoglobin 30.3 pg (27.0-31.0); Mean Corpuscular Volume 93.7 fL (78.0-98.0); Platelet Count 190 thou/uL (130-400); RBC Distribution Width 15.8 % (11.5-14.5); Red Blood Cell (RBC) Count 3.52 mill/uL (4.20-5.40)
[2019-03-31 03:29] LABS: Band 7 % (5-11); Lymphocytes 4 % (21-51); MDiff Complete? YES; Monocytes 1 % (0-10); Neutrophil 88 % (42-75)
[2019-03-31] MEDS: traMADol HCl 50 MG TAB PO PRN (03:40)
[2019-03-31 03:48] LABS: Anion Gap 14 mmol/L (10-20); BUN (Urea Nitrogen) 33 mg/dL (9.8-20.1); Calc. Creatinine Clearance 43 mL/min (70-130); Calcium 8.7 mg/dL (7.8-10.44); Carbon Dioxide 24 mmol/L (23-31); Chloride 105 mmol/L (98-107); Estimated GFR-MDRD 61; Glucose 159 mg/dL (80-115); Magnesium 2.1 mg/dL (1.6-2.6); Phosphorus 3.6 mg/dL (2.3-4.7); Potassium 4.1 mmol/L (3.5-5.1); Sodium 139 mmol/L (136-145)
[2019-03-31] MEDS: Levothyroxine Sodium 100 MCG TAB PO SCH (05:35)
[2019-03-31] MEDS ORDERED: Furosemide 40 MG/4 ML VIAL SLOW IVP SCH (07:00)
[2019-03-31] MEDS ORDERED: PHOS-NAK 1 PKT PACK PO SCH (07:15)
--- NOTE | 2019-03-31 07:38 | RAD ---
EXAM: Single view of the chest HISTORY: CHF exacerbation COMPARISON: 03/30/2019 FINDINGS: Single view of the chest shows an enlarged but stable cardiomediastinal silhouette. The pa tient is status post sternotomy. There are bilateral veil-like opacities which likely represent layering pleural effusions. The pacemaker is unchanged in position. No consolidation is seen. Degene rative changes are seen in the spine. IMPRESSION: Stable exam
[2019-03-31 07:47] LABS: INR-International Normal Ratio 2.1; PTT 34.9 SEC (22.9-36.1); Prothrombin Time 23.4 SEC (12.0-14.7)
[2019-03-31] MEDS: Mometasone/Formoterol 120 PUFF INHALER INH SCH ×2 (07:49→18:42)
[2019-03-31] MEDS ORDERED: Metolazone 2.5 MG TAB PO SCH (08:30)
[2019-03-31] MEDS: Ferrous Sulfate 325 MG TAB PO SCH ×2 (08:55→14:57)
[2019-03-31] MEDS: Ascorbic Acid 500 mg Chewable Tablet PO SCH ×2 (08:55→14:56)
[2019-03-31] MEDS: Gabapentin 100 MG CAP PO SCH ×3 (08:56→21:47)
[2019-03-31] MEDS: Torsemide 20 MG TAB PO SCH (08:57)
[2019-03-31] MEDS: Senokot S 8.6-50 MG TAB PO SCH ×2 (08:57→21:47)
[2019-03-31] MEDS: Polyethylene Glycol 3350 17 GM Packet PO SCH (08:57)
[2019-03-31] MEDS: DOPamine 400 MG/D5W 250 ML 250 ML IVPB SCH (09:00)
[2019-03-31] MEDS: Fluticasone Propionate Nasal Spray 16 gm Bottle NASAL SCH (11:24)
--- NOTE | 2019-03-31 12:17 | PRG ---
DATE OF SERVICE: 03/31/2019 SUBJECTIVE: A 68-year-old female, status post mechanical fall postop day #4 from open reduction and internal fixation of left intertrochanteric femur fracture with dynamic hip screw and plate. The patient is currently doing well on high-flow nasal cannula, although she needed BiPAP overnight in IMCU. She is in acute CHF exacerbation, but is having a difficult time with fluid restriction due to drinking tea as well as she has Ensure scheduled t.i.d. No other overnight events. She slept well overnight. OBJECTIVE: VITAL SIGNS: Blood pressure 121/60, temperature 98.4, pulse 80, respiratory rate 23, SpO2 of 92% on high-flow nasal cannula at 60. GENERAL: Thin female, awake and alert, in no acute distress. HEENT: Atraumatic and normocephalic. Wearing high-flow nasal cannula. NECK: Trachea midline. Supple. CARDIAC: Regular rate and rhythm. No murmurs. No peripheral edema. RESPIRATORY: Expiratory wheezing, prolonged expiratory phase. Equal chest rise and fall. Lung exam improved from yesterday. EXTREMITIES: Moves extremities x4. LABORATORY DATA: Hemoglobin 10.7, hematocrit 33. INR 2.1. BUN 33, creatinine 0.91, magnesium 2.1, phosphorus 3.6. IMPRESSION: 1. Status post mechanical fall. 2. Chronic obstructive pulmonary disease and acute exacerbation. 3. Heart failure and acute exacerbation. 4. Left nondisplaced intertrochanteric femur fracture. 5. Iliac disease. 6. Atrial fibrillation, status post pacemaker placement. PLAN: We will obtain echo today as there is no echo on files. We will continue IV diuresis. The patient required BiPAP overnight, but is now tolerating high-flow nasal cannula. We will continue strict I's and O's and daily weights as well as Young to measure output. From anemia standpoint, her hemoglobin has been stable. Her chest x-ray showed some improvement today. She is currently on dobutamine at 5. We will add metolazone 30 minutes prior to Lasix to increase diuresis. She was only net negative 282 and is net positive 650 mL today. In regard to her anticoagulation, she is now therapeutic on warfarin with INR 2.1. We will resume the patient's home dose with pharmacy to manage. Pulmonology is following for COPD exacerbation. She is currently on DuoNeb q.4 hours, Dulera, Singulair, and hydrocortisone. We will continue physical and occupational therapy. Case management is working for a rehab placement. This patient was seen and evaluated by Dr. Saavedra during morning rounds. Plan was discussed with the patient, who is in agreement with the plan. Job ID: [id number] MTDD
[2019-03-31] MEDS ORDERED: Warfarin Sodium 2 MG TAB PO SCH (17:00)
[2019-03-31] MEDS: Amiodarone 200 MG TAB PO SCH (21:47)
[2019-03-31] MEDS: Montelukast Sodium 10 mg Tablet PO SCH (21:47)
[2019-03-31] MEDS: Atorvastatin Calcium 20 MG TAB PO SCH (21:48)
[2019-04-01] MEDS: traMADol HCl 50 MG TAB PO SCH ×5 (01:03→18:41)
[2019-04-01] MEDS: methylPREDNISolone Sod Succ/PF 125 MG/2 ML VIAL IVP SCH ×3 (01:08→17:30)
[2019-04-01 03:22] LABS: #Lymphocytes 0.3 thou/uL (1.20-3.40); #Monocytes 0.6 thou/uL (0.11-0.59); #Neutrophils 9.4 thou/uL (1.40-6.50); %Basophils 0.1 % (0.0-1.0); %Eosinophils 0.1 % (0.0-10.0); %Lymphocytes 2.9 % (21.0-51.0); %Monocytes 5.8 % (0.0-10.0); %Neutrophils 91.1 % (42.0-75.0); Hemoglobin 10.6 g/dL (12.0-16.0); Mean Corpuscular HGB CONC 31.9 g/dL (32.0-36.0); Mean Corpuscular Volume 93.9 fL (78.0-98.0); Mean Platelet Volume 7.6 fL (7.4-10.4); Platelet Count 200 thou/uL (130-400); Red Blood Cell (RBC) Count 3.55 mill/uL (4.20-5.40); White Blood Cell (WBC) Count 10.3 thou/uL (4.8-10.8)
[2019-04-01 03:30] LABS: INR-International Normal Ratio 2.8; PTT 31.5 SEC (22.9-36.1); Prothrombin Time 29.5 SEC (12.0-14.7)
[2019-04-01 03:39] LABS: Phosphorus 3.6 mg/dL (2.3-4.7)
[2019-04-01 03:40] LABS: Anion Gap 14 mmol/L (10-20); BUN (Urea Nitrogen) 46 mg/dL (9.8-20.1); Calc. Creatinine Clearance 40 mL/min (70-130); Calcium 8.7 mg/dL (7.8-10.44); Carbon Dioxide 29 mmol/L (23-31); Chloride 99 mmol/L (98-107); Estimated GFR-MDRD 57; Glucose 173 mg/dL (80-115); Magnesium 1.9 mg/dL (1.6-2.6); Potassium 3.3 mmol/L (3.5-5.1); Sodium 139 mmol/L (136-145)
[2019-04-01] MEDS: Levothyroxine Sodium 100 MCG TAB PO SCH (05:38)
[2019-04-01] MEDS: Mometasone/Formoterol 120 PUFF INHALER INH SCH ×2 (07:52→19:35)
--- NOTE | 2019-04-01 07:59 | RAD ---
XR Chest 1 View Portable HISTORY: CHF exacerbation COMPARISON: Previous day FINDINGS: Allowing for differences in technique no significant interval change is seen.
[2019-04-01] MEDS ORDERED: Metolazone 2.5 MG TAB PO SCH (08:30)
[2019-04-01] MEDS: Ferrous Sulfate 325 MG TAB PO SCH ×2 (09:12→17:18)
[2019-04-01] MEDS: Ascorbic Acid 500 mg Chewable Tablet PO SCH ×2 (09:12→17:19)
[2019-04-01] MEDS: Gabapentin 100 MG CAP PO SCH ×3 (09:13→20:15)
[2019-04-01] MEDS: Senokot S 8.6-50 MG TAB PO SCH ×2 (09:13→20:17)
[2019-04-01] MEDS: Torsemide 20 MG TAB PO SCH (09:15)
[2019-04-01] MEDS: Polyethylene Glycol 3350 17 GM Packet PO SCH (09:16)
[2019-04-01] MEDS: Fluticasone Propionate Nasal Spray 16 gm Bottle NASAL SCH (09:20)
[2019-04-01] MEDS: traMADol HCl 50 MG TAB PO PRN (10:49)
--- NOTE | 2019-04-01 11:41 | PQF ---
BAILEY ESTEVES VINCENT U [id number] [facility]- B09 [id number] CLINICAL DOCUMENTATION IMPROVEMENT CLARIFICATION FORM: ICD-10 Updated PLEASE DO AN ADDENDUM TO THE PROGRESS NOTE WITH ANY DOCUMENTATION UPDATES OR ADDITIONS AND CARRY THROUGH TO DC SUMMARY. THANK YOU. DATE: 04/01/19 , 04/05/19 ATTN:DR. Carmine ARMAS Please exercise your independent, professional judgment in responding to the clarification form. Clinical indicators are provided on the bottom of this form for your review. Please check appropriate box(s): CONGESTIVE HEART FAILURE: A. TYPE: [ ] Systolic / HFrEF [ ] Diastolic / HFpEF [ x ] Combined Systolic / Diastolic B. ACUITY [ ] Acute [ x] Acute on Chronic [ ] Chronic [ ] Other diagnosis [ ] Unable to determine In addition, please specify: Present on Admission (POA): [ x ] Yes [ ] No [ ] Unable to determine For continuity of documentation, please document condition throughout progress notes and discharge summary. Thank You. CLINICAL INDICATORS - SIGNS / SYMPTOMS / LABS 03/29 2562.5, 03/30 2836.7 03/28 PN (SYBIL) IMPRESSION 5) CONGESTIVE HEART FAILURE 03/29 PN (SYBIL) IMPRESSION 6) CONGESTIVE HEART FAILURE 03/31 PN (SYBIL) SUBJECTIVE: SHE IS IN ACUTE CHF EXACERBATION, BUT IS HAVING A DIFFICULT TIME WITH FLUID RESTRICTION, IMPRESSION: 2) HEART FAILURE AND ACUTE EXACERBATION 03/31 ECHO: EF 15-20 % , OVERALL LEFT VENTRICULAR FUNCTION IS SEVERELY DEPRESSED, LEFT ATRIUM IS MILDLY DILATED, SEVERE MITRAL REGURGITATION IS PRESENT , AORTIC VALVE IS SCLEROTIC, MILD TO MODERATE TRICUSPID REGURGITATION RISK: HX CHF ( H & P) PONZIO HX CAD ( H & 0) PONZIO HX OF [place], VTACH, V FIB TREATMENTS: ECHO ORDERED 03/31 SERIAL CXR SUPPLEMENTAL OXYGEN (03/28-PRESENT) THANK YOU! DONOVAN (This form is maintained as a part of the permanent medical record) 2014 [employer]. All Rights Reserved [email or web address] [phone] MTDD
--- NOTE | 2019-04-01 12:00 | PQF ---
BAILEY ESTEVESSIMÓN [id number] [facility]- B09 [id number] CLINICAL DOCUMENTATION IMPROVEMENT CLARIFICATION FORM: ICD-10 Updated PLEASE DO AN ADDENDUM TO THE PROGRESS NOTE WITH ANY DOCUMENTATION UPDATES OR ADDITIONS AND CARRY THROUGH TO DC SUMMARY. THANK YOU. Date: 04/01/19 ATTN: DR. Vee ARMAS Please exercise your independent, professional judgment in responding to the clarification form. Clinical indicators are provided on the bottom of this form for your review. Please check appropriate box(s): [ x ] Protein Calorie Malnutrition: [ ] Mild [ ] Moderate [ x ] Severe [ ] Other Malnutrition (please specify) __ [ ] Underweight without malnutrition [ ] Cachexia [ ] Other diagnosis [ ] Unable to determine In addition, please specify: Present on Admission (POA): [x ] Yes [ ] No [ ] Unable to determine CLINICAL INDICATORS - SIGNS / SYMPTOMS / LABS BMI 13.8 PER DIETARY CONSULT (03/26) DIETARY CONSULT : MALNUTRITION W/ 10-15% WEIGHT LOSS IN LESS THAN 1 MONTH , MODERATE TEMPORAL WASTING AND SEVERE WASTING TO TRAPEZIUS, VERY MINIMAL FAT STORES OBSERVED WITH RIBS VISIBLE RISK: HX OF CELIAC DISEASE S/P LT FEMUR FX W ORIF TREATMENTS: DIETARY CONSULT RD TO ORDER ENSURE (HIGH PROTEIN) TID Moderate Malnutrition (in acute illness) Energy Intake: <75% of estimated energy requirement for > 7 days Weight Loss: 1-2%/1 week; 5%/ 1 month; 7.5%/3 months Other: mild body fat loss; mild muscle mass loss; mild fluid accumulation; Severe Malnutrition (in acute illness) Energy Intake: < 50% of estimated energy requirement for > 5 days Weight Loss: >1-2%/1 week; >5%/1 month; >7.5%/3 months Other: moderate body fat loss; moderate muscle mass loss; moderate- severe fluid accumulation; 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 DONOVAN (This form is maintained as a part of the permanent medical record) 2014 [employer]. All Rights Reserved [email or web address] [phone] MTDD
[2019-04-01] MEDS ORDERED: DOPamine 400 MG/D5W 250 ML 250 ML IVPB SCH (12:05)
--- NOTE | 2019-04-01 12:08 | PDOC.CTH ---
Cardiology Progress Note - Objective Vital Signs Temp Pulse Resp Pulse Ox 04/01/19 11:42 79 23 H 94 L 04/01/19 08:58 97.7 F 04/01/19 07:55 98 04/01/19 07:53 77 24 H 96 04/01/19 07:52 75 20 98 04/01/19 07:37 94 L 04/01/19 04:00 98.0 F 04/01/19 02:01 70 25 H 95 Admit Weight 38.782 kg Weight 47.627 kg 03/31/19 04/01/19 04/02/19 06:59 06:59 06:59 Intake Total 2128 842 150 Output Total 1478 2090 310 Balance 010 -1473 -294 - Labs Result Diagrams: 04/01/19 03:11 04/01/19 03:11 - Assessment/Plan Cardiology Consult Note Primary Pony Roll Finisher: Dr. Ashby HPI: This is a 68 yo F who is POD day 5 from ORIF of L femur after mechanical fall. Cardiology is consulted for EF 10-15%, CHF exacerbation. Patient states she has been feeling mild shortness of breath for the last few days. She states she sleep sitting up and does not lay down flat often so she is not sure if she gets short of breath laying down. Her She denies chest pain or palpitations. She states her legs have had swelling over the previous few days. She had a catheterization with Dr. Ashby 2 weeks ago and is unsure of the results. PMH: CAD, Asthma, COPD, osteoporosis, lupus, PUD, sinus dysfxn, afib, CHF, celiac PSH: hysterectomy, CABG, pacemaker, multiple orthopedic surgeries Meds: coreg 3.125 BID, metolozone, ASA, Warfarin, omeprazole, levothyroxine, simvastatin, singulair, losartan Allergies: gluten Soc Hx: former smoker REVIEW OF SYSTEMS: Gen: no fever, chills, or sweats Neuro: no numbness/tingling, no weakness, denies headache Eyes: no visual changes ENT: no hearing changes, no sore throat, no runny nose Resp: +shortness of breath, dry cough Card: denies chest pain, no palpitations GI: denies N/V/D, no abdominal pain : no dysuria, no hematuria MSK: no myalgias, no joint pain/stiffness Heme: takes warfarin Skin: no rash, no erythema Vitals: T: 97.7 R: 24 BP: 108/64 P:84 Sat: 95% on HF NC PHYSICAL EXAMINATION: General: NAD, alert and oriented x3 HEENT: PERRLA, EOMI, normal sclera, oropharynx without erythema or exudate Neck: Supple. Full ROM. Heart/Cardiovascular System: RRR, Cap refill < 3 seconds, no rub, 2/6 systolic murmur Lungs/Respiratory System: crackles at bases, good air movement, no distress Abdomen/Gastro-Intestinal System: no abdominal tenderness, normal bowel sounds, no masses, no organomegaly Extremities: Warm extremities. +2 edema at ankles bilaterally Neuro: No gross deficits appreciated. CN 2-12 grossly intact Psychiatry: Awake, Alert and cooperative with exam Skin: no rashes or erythema Musculoskeletal: Full ROM A/P: # HFrEF acute on chronic exacerbation - cont coreg, losartan - on torsemide, dobutamine- increase dobutamine back to 5 2/2 pressures in the low 90s systolic at time of exam - Overall fluid balance this admit about +1L, - BNP 2800, Echo showed EF 10-15%, echo one year ago shows EF 20-25% has defibrillator - hypokinetic LV on echo -cath shows occulded grafts on the R # Chronic Afib - rate controlled - on warfarin - See Dr. Jack note to follow for final recs
--- NOTE | 2019-04-01 12:52 | EKG ---
Test Reason : Blood Pressure : / mmHG Vent. Rate : 060 BPM Atrial Rate : 416 BPM P-R Int : 000 ms QRS Dur : 178 ms QT Int : 564 ms P-R-T Axes : 000 -49 088 degrees QTc Int : 564 ms AV dual-paced rhythm Abnormal ECG Confirmed by HAIM FINN, KATHY ([id number]), supervising editor news reel ADALBERTO LARSON ([id number]) on 04/01/2019 12:51:45 PM Referred By: Confirmed By:KATHY WHITMORE MD
[2019-04-01] MEDS ORDERED: Furosemide 40 MG/4 ML VIAL SLOW IVP SCH (16:45)
--- NOTE | 2019-04-01 16:59 | CON ---
DATE OF CONSULTATION: 04/01/2019 PRIMARY BUSINESS INFORMATION MANAGER: Rian Machado MD. REASON FOR CONSULTATION: Heart failure. HISTORY OF PRESENT ILLNESS: Ms. Peraza is a very pleasant 68-year-old white female, who comes to the hospital for a fall. She broke her left femur after a mechanical fall and she was taken to the OR for open reduction and internal fixation of the left femur 5 days ago. Chest x-ray preoperatively and clinically, she looks euvolemic. Postoperatively, she developed pulmonary edema and has been trying to be diuresed for the last few days. She was also placed on dobutamine about 3-4 days ago. Currently, Ms. Peraza has no new complaints, however, her lungs are still significantly congested. PAST MEDICAL HISTORY: 1. Coronary artery disease, status post CABG. 2. Bronchial asthma. 3. COPD. 4. Osteoporosis. 5. Lupus. 6. Peptic ulcer disease. 7. Sinus node dysfunction. 8. Atrial fibrillation. 9. Celiac disease. PAST SURGICAL HISTORY: 1. Hysterectomy. 2. CABG. 3. AICD secondary to severe cardiomyopathy. 4. Multiple orthopedic surgeries. OUTPATIENT MEDICATIONS: 1. Losartan 25 mg a day. 2. Tramadol. 3. Simvastatin. 4. Flonase. 5. Promethazine. 6. Potassium chloride. 7. Torsemide 40 mg a day. 8. Amiodarone. 9. Coumadin. 10. Levothyroxine. 11. DuoNeb. 12. Omeprazole. 13. Advair Diskus. 14. Metolazone. 15. Aspirin 81 a day. 16. Montelukast. 17. Carvedilol. ALLERGIES: GLUTEN AND IBUPROFEN. SOCIAL HISTORY: Former smoker. Currently, no alcohol, tobacco, or drugs. FAMILY HISTORY: Noncontributory. REVIEW OF SYSTEMS: A 12-point review of systems was done and was all negative unless stated in the History of Present Illness, needing high-flow oxygen. PHYSICAL EXAMINATION: VITAL SIGNS: Temperature 98.6, pulse 88, respiratory rate 22, saturating 93% on high-flow oxygen, blood pressure 130/65. GENERAL: Awake, alert, and oriented x3, in no distress, talking in short sentences. HEENT: Normocephalic and atraumatic. NECK: Supple. LUNGS: Coarse breath sounds anteriorly. Crackles at the bases. ABDOMEN: Soft. Positive bowel sounds. EXTREMITIES: No edema. SKIN: Warm and dry. LABORATORY DATA: Laboratory work was reviewed. White count of 10, hemoglobin of 10, hematocrit of 33, platelet count of 200. Coags were reviewed. ABG was reviewed. Chemistries were reviewed. UA was reviewed. ASSESSMENT: 1. Acute on chronic systolic heart failure. 2. Chronic ischemic cardiomyopathy, EF 15% to 20%. 3. Recent heart catheterization showing SVG to RCA is occluded, otherwise patent graft. PLAN: 1. Would continue dobutamine at 5 mg/hour until her respiratory status improves. 2. Chest x-ray significantly continues to be congested. We will plan on giving her IV Lasix at 40 mg twice a day initially. We will see if this changes anything with her diuresis as she is still significantly volume overload. Thank you for letting us to participate in the care of your patient. Job ID: [id number]
[2019-04-01] MEDS: Potassium Chloride 10 MEQ TAB PO SCH (17:19)
[2019-04-01] MEDS: Warfarin Sodium 1 MG TAB PO SCH (17:20)
[2019-04-01] MEDS: Mag-Al 1200 mg/1200 mg/30 ML UDCUP PO PRN (18:34)
[2019-04-01] MEDS: DOPamine 400 MG/D5W 250 ML 250 ML IVPB SCH (18:37)
[2019-04-01] MEDS: Montelukast Sodium 10 mg Tablet PO SCH (20:15)
[2019-04-01] MEDS: Atorvastatin Calcium 20 MG TAB PO SCH (20:15)
[2019-04-01] MEDS: Amiodarone 200 MG TAB PO SCH (20:16)
[2019-04-02] MEDS: methylPREDNISolone Sod Succ/PF 125 MG/2 ML VIAL IVP SCH (00:44)
[2019-04-02] MEDS: traMADol HCl 50 MG TAB PO SCH ×5 (00:45→23:38)
[2019-04-02 05:04] LABS: PTT 34.8 SEC (22.9-36.1); Prothrombin Time 31.1 SEC (12.0-14.7)
[2019-04-02] MEDS: Levothyroxine Sodium 50 MCG TAB PO SCH (06:02)
[2019-04-02] MEDS: Furosemide 40 MG/4 ML VIAL SLOW IVP SCH ×2 (06:03→14:18)
[2019-04-02] MEDS: Mometasone/Formoterol 120 PUFF INHALER INH SCH ×2 (07:37→18:49)
[2019-04-02] MEDS: Gabapentin 100 MG CAP PO SCH ×3 (09:44→20:58)
[2019-04-02] MEDS: Polyethylene Glycol 3350 17 GM Packet PO SCH (09:44)
[2019-04-02] MEDS: Senokot S 8.6-50 MG TAB PO SCH ×2 (09:44→20:57)
[2019-04-02] MEDS: Ferrous Sulfate 325 MG TAB PO SCH ×2 (09:45→18:02)
[2019-04-02] MEDS: Potassium Chloride 10 MEQ TAB PO SCH ×2 (09:45→18:02)
[2019-04-02] MEDS: methylPREDNISolone Sod Succ 40 MG VIAL IVP SCH ×3 (09:45→23:36)
[2019-04-02] MEDS: Ascorbic Acid 500 mg Chewable Tablet PO SCH ×2 (09:45→18:02)
[2019-04-02] MEDS: Fluticasone Propionate Nasal Spray 16 gm Bottle NASAL SCH (09:45)
[2019-04-02] MEDS: traMADol HCl 50 MG TAB PO PRN (09:47)
--- NOTE | 2019-04-02 17:10 | PRG ---
DATE OF SERVICE: 04/02/2019 SUBJECTIVE: Ms. Peraza is a 68-year-old woman, who is postoperative day #6. The patient is status post open reduction and internal fixation of left intertrochanteric femur fracture. The patient is in acute on chronic CHF exacerbation, requiring forced diuresis. She remains on mild inotropic support on dopamine 5 mcg/kg/min. She is more awake and alert today. She denies any dyspnea, chest pain or syncope. OBJECTIVE: VITAL SIGNS: Today includes blood pressure 100/58, pulse is 77, respiratory rate is 22, temperature is 97.6 degrees Fahrenheit, and oxygen saturation is 99% on 50% high-flow nasal cannula. Urinary output has been adequate. The patient has negative fluid balance of 2.8 L over the last 24 hours. HEART: Regular rate and rhythm. No murmurs or gallops auscultated. LUNGS: Clear to auscultation bilaterally. Breathing, regular and nonlabored. ABDOMEN: Soft, nontender, and nondistended. NEUROLOGIC: No focal deficits present. IMPRESSIONS: 1. Postoperative day #6 status post open reduction and internal fixation of left intertrochanteric femur fracture. 2. Resolving acute on chronic congestive heart failure exacerbation. 3. Resolving acute pulmonary insufficiency secondary to congestive heart failure exacerbation. PLAN: Continue with inotropic support and fluid restriction as well as gentle diuresis. Increase activity per Physical and Occupational Therapy. We will ask manager of case management to begin discharge planning in anticipation to transfer to either inpatient rehabilitation or jail facility post discharge. Job ID: [id number]
--- NOTE | 2019-04-02 18:05 | PDOC.CTH ---
Cardiology Progress Note - Subjective Slight improvement in breathing but states that overall she feels better. - Objective Vital Signs Temp Pulse Resp BP BP BP Pulse Ox 04/02/19 15:18 97.6 F 04/02/19 14:52 99 04/02/19 14:49 77 22 H 99 04/02/19 11:35 99 04/02/19 11:33 77 19 99 04/02/19 11:16 97.2 F L 04/02/19 08:59 98/63 102/56 L 04/02/19 08:24 105/58 L 97/58 L 04/02/19 07:37 99 04/02/19 07:34 80 24 H 99 04/02/19 07:18 97.5 F L Admit Weight 85 lb 8 oz Weight 103 lb 1 oz 04/01/19 04/02/19 04/03/19 06:59 06:59 06:59 Intake Total 842 984.3 440.7 Output Total 2090 3870 1550 Balance -1248 -2885.7 -1109.3 - Physical Examination General/Neuro: alert & oriented x3, NAD Neck: no JVD present Lungs: unlabored respirations, other: (reduced breath sounds with bilat crackles. ) Heart: RRR Abdomen: NT/ND Extremities: other: (no edema) - Telemetry Telemetry Rhythm: NSR - Labs Result Diagrams: 04/01/19 03:11 04/01/19 03:11 - Assessment/Plan 1. Acute on chornic systolic CHF 2. Ischemic CM EF at 15-20% 3. S/P CABG in past, SVG to RCA occluded rest of grafts open 4. COPD. 5. S/P fall and hip Fx, ORIF of Left femur. 6. Severe MR PLAN: - Continue dopamine at current dose. - Her sensation of feeling better are likely related to her BP being better and her dopamine improving her CO. - Continue IV lasix and dopamine. 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 - Marina Zimmerman
[2019-04-02] MEDS: Atorvastatin Calcium 20 MG TAB PO SCH (20:57)
[2019-04-02] MEDS: Montelukast Sodium 10 mg Tablet PO SCH (20:57)
[2019-04-02] MEDS: Amiodarone 200 MG TAB PO SCH (20:58)
[2019-04-02] MEDS: Mag-Al 1200 mg/1200 mg/30 ML UDCUP PO PRN (22:44)
[2019-04-03] MEDS: DOPamine 400 MG/D5W 250 ML 250 ML IVPB SCH (04:11)
[2019-04-03 05:18] LABS: #Lymphocytes 0.3 thou/uL (1.20-3.40); #Monocytes 0.4 thou/uL (0.11-0.59); #Neutrophils 9.1 thou/uL (1.40-6.50); %Basophils 0.2 % (0.0-1.0); %Eosinophils 0.1 % (0.0-10.0); %Lymphocytes 2.7 % (21.0-51.0); %Monocytes 3.9 % (0.0-10.0); %Neutrophils 93.2 % (42.0-75.0); Hemoglobin 12.9 g/dL (12.0-16.0); Mean Corpuscular HGB CONC 31.6 g/dL (32.0-36.0); Mean Corpuscular Hemoglobin 29.6 pg (27.0-31.0); Mean Corpuscular Volume 93.7 fL (78.0-98.0); Mean Platelet Volume 7.9 fL (7.4-10.4); Platelet Count 223 thou/uL (130-400); RBC Distribution Width 15.4 % (11.5-14.5); Red Blood Cell (RBC) Count 4.36 mill/uL (4.20-5.40); White Blood Cell (WBC) Count 9.8 thou/uL (4.8-10.8)
[2019-04-03 05:25] LABS: INR-International Normal Ratio 2.4; PTT 31.3 SEC (22.9-36.1); Prothrombin Time 25.8 SEC (12.0-14.7)
[2019-04-03 05:38] LABS: BUN (Urea Nitrogen) 51 mg/dL (9.8-20.1); Calc. Creatinine Clearance 42 mL/min (70-130); Calcium 9.1 mg/dL (7.8-10.44); Estimated GFR-MDRD 62; Glucose 177 mg/dL (80-115); Magnesium 2.2 mg/dL (1.6-2.6); Phosphorus 3.6 mg/dL (2.3-4.7)
[2019-04-03] MEDS: Furosemide 40 MG/4 ML VIAL SLOW IVP SCH (05:47)
[2019-04-03 05:48] LABS: Anion Gap 17 mmol/L (10-20); Chloride 79 mmol/L (98-107); Sodium 136 mmol/L (136-145)
[2019-04-03] MEDS: Levothyroxine Sodium 50 MCG TAB PO SCH (05:48)
[2019-04-03] MEDS: traMADol HCl 50 MG TAB PO SCH ×3 (05:48→19:36)
[2019-04-03 05:52] LABS: Carbon Dioxide 43 mmol/L (23-31)
[2019-04-03] MEDS: Mometasone/Formoterol 120 PUFF INHALER INH SCH ×2 (07:54→18:54)
[2019-04-03 08:34] LABS: Base Excess (BEa) 18.4 mEq/L (-2.0 to +3.0); CO2 Tension 53.6 mmHg (35.0-45.0); Calcium, Ionized 1.08 mmol/L (1.12-1.30); Carboxyhemoglobin (COHb) 1.2 gm% (0.0-3.0); Hemoglobin (Hb) 13.5 g/dL (12.0-16.0); O2 Tension (PaO2) 62.4 mmHg (> 80.0); Potassium - ABG Lab 3.05 mmol/L (3.70-5.30); pH, Arterial 7.53 (7.35-7.45)
[2019-04-03 08:37] LABS: Puncture Site RRA
[2019-04-03] MEDS ORDERED: DOPamine 400 MG/D5W 250 ML 250 ML IVPB SCH (09:31)
[2019-04-03] MEDS ORDERED: PHOS-NAK 1 PKT PACK PO SCH (09:45)
[2019-04-03] MEDS: Ferrous Sulfate 325 MG TAB PO SCH ×2 (10:14→18:20)
[2019-04-03] MEDS: Ascorbic Acid 500 mg Chewable Tablet PO SCH ×2 (10:14→18:20)
[2019-04-03] MEDS: methylPREDNISolone Sod Succ 40 MG VIAL IVP SCH ×3 (10:15→23:37)
[2019-04-03] MEDS: Loratadine 10 MG TAB PO SCH (10:15)
[2019-04-03] MEDS: Fluticasone Propionate Nasal Spray 16 gm Bottle NASAL SCH (10:15)
[2019-04-03] MEDS: Gabapentin 100 MG CAP PO SCH ×3 (10:15→20:56)
[2019-04-03] MEDS: Potassium Chloride 10 MEQ TAB PO SCH ×2 (10:15→18:20)
[2019-04-03] MEDS: Polyethylene Glycol 3350 17 GM Packet PO SCH (10:16)
[2019-04-03] MEDS: Senokot S 8.6-50 MG TAB PO SCH ×2 (10:17→20:56)
--- NOTE | 2019-04-03 11:40 | PDOC.CTH ---
Cardiology Progress Note - Subjective She had her dopamine weaned and started to get hypotensive soon after so we had to get it back up to 5. No new issues otherwise. - Objective Vital Signs Temp Pulse Resp Pulse Ox 04/03/19 11:03 98.0 F 04/03/19 10:55 98 04/03/19 10:49 64 18 95 04/03/19 07:52 80 19 99 04/03/19 07:24 98.2 F 04/03/19 04:00 97.6 F 04/03/19 02:17 87 18 100 04/02/19 23:41 98.1 F Admit Weight 85 lb 8 oz Weight 98 lb 8 oz 04/02/19 04/03/19 04/04/19 06:59 06:59 06:59 Intake Total 984.3 1044.2 Output Total 3870 2465 Balance -2885.7 -1420.8 - Physical Examination General/Neuro: alert & oriented x3, NAD Neck: no JVD present Lungs: other: (Crackles at bases.) Heart: RRR Abdomen: NT/ND Extremities: other: (no edema) - Telemetry Telemetry Rhythm: NSR - Labs Result Diagrams: 04/03/19 04:56 04/03/19 04:56 - Assessment/Plan 1. Acute on chornic systolic CHF 2. Ischemic CM EF at 15-20% 3. S/P CABG in past, SVG to RCA occluded rest of grafts open 4. COPD. 5. S/P fall and hip Fx, ORIF of Left femur. 6. Severe MR PLAN: - Continue dopamine at current dose. - Continue IV lasix and dopamine. - Starting to get hyperchloremic from Lasix. - Poor custodial prognosis. - Replace K.
--- NOTE | 2019-04-03 12:24 | RAD ---
XR Chest 1 View Portable HISTORY: Shortness of breath COMPARISON: 06/01/2019 study FINDINGS: Heart size is enlarged pulmonary vessels and parahilar markings are improved as compared th e prior examination but bibasilar pleural parenchymal lung changes appear similar. Internal defibrillator device and postop sternotomy changes are again seen. IMPRESSION: Slight improvement to pulmonary edema changes.
[2019-04-03] MEDS ORDERED: Furosemide 40 MG/4 ML VIAL SLOW IVP SCH (12:30)
[2019-04-03] MEDS: Warfarin Sodium 2 MG TAB PO SCH (18:20)
[2019-04-03] MEDS: Cephalexin 250 MG CAP PO SCH ×2 (18:21→23:39)
[2019-04-03] MEDS ORDERED: Acetaminophen 500 MG TAB PO PRN (18:47)
--- NOTE | 2019-04-03 19:12 | PRG ---
DATE OF SERVICE: 04/03/2019 SUBJECTIVE: Ms. Peraza is awake and alert today. She reports breathing much better today. She tolerated diet. She is having adequate urinary output and has not had any bowel movement in the last couple of days. She remains on dopamine at 5 mcg/kg per minute. She was receiving furosemide 40 mg b.i.d. since yesterday. OBJECTIVE: VITAL SIGNS: This morning, when evaluated was noted that blood pressure 130/56, pulse 72, respiratory rate 23, temperature 98 degrees Fahrenheit, and oxygen saturation was 99% on 5 L high-flow nasal. HEENT: She has no jugular venous distention noted. She has no scleral edema present. HEART: Reveals regular rate and rhythm with no murmurs auscultated. LUNGS: Reveal scattered rhonchi, but overall improved and breathing is regular and nonlabored. ABDOMEN: Soft, nontender, and nondistended. NEUROLOGIC: Reveals no focal deficits present. LABORATORY FINDINGS: Today includes a CBC with 9800 white blood cells, hemoglobin and hematocrit of 12.9 and 40.8 respectively. Platelet count is 223,000. Metabolic profile; sodium 136, potassium 3.0, chloride is 79, bicarb is 43, BUN is 51, creatinine is 0.90, glucose is 177, magnesium 2.2, and phosphorus is 3.6. IMPRESSION: 1. Resolving acute exacerbation of chronic congestive heart failure. 2. Acute hypokalemia. 3. Acute contraction metabolic alkalosis. 4. Prerenal azotemia. 5. Postop day #7 status post open reduction and internal fixation of left intertrochanteric femur fracture. PLAN: 1. We will decrease diuresis. 2. We will continue the dopamine at 5 mcg/kg per minute at the of Cardiology Services. 3. Increase activity per Physical and Occupational therapy, which will be initiated today. Above findings and plan discussed with the patient, who indicates understanding information given. I have answered her questions. Job ID: [id number]
[2019-04-03] MEDS: Montelukast Sodium 10 mg Tablet PO SCH (20:56)
[2019-04-03] MEDS: Atorvastatin Calcium 20 MG TAB PO SCH (20:56)
[2019-04-03] MEDS: Amiodarone 200 MG TAB PO SCH (20:57)
[2019-04-04] MEDS: traMADol HCl 50 MG TAB PO SCH ×5 (00:15→22:57)
[2019-04-04 04:36] LABS: INR-International Normal Ratio 2.6; PTT 31.2 SEC (22.9-36.1); Prothrombin Time 27.9 SEC (12.0-14.7)
[2019-04-04] MEDS: Cephalexin 250 MG CAP PO SCH ×4 (06:11→22:59)
[2019-04-04] MEDS: Levothyroxine Sodium 100 MCG TAB PO SCH (06:12)
[2019-04-04] MEDS: Mometasone/Formoterol 120 PUFF INHALER INH SCH ×2 (07:33→18:53)
[2019-04-04 08:56] LABS: Hemoglobin 12.5 g/dL (12.0-16.0); Mean Corpuscular HGB CONC 32.1 g/dL (32.0-36.0); Mean Corpuscular Hemoglobin 30.1 pg (27.0-31.0); Mean Corpuscular Volume 93.9 fL (78.0-98.0); Mean Platelet Volume 8.1 fL (7.4-10.4); Platelet Count 205 thou/uL (130-400); Red Blood Cell (RBC) Count 4.14 mill/uL (4.20-5.40); White Blood Cell (WBC) Count 12.2 thou/uL (4.8-10.8)
[2019-04-04 09:17] LABS: Band 4 % (5-11); Lymphocytes 3 % (21-51); MDiff Complete? YES; Monocytes 4 % (0-10); Neutrophil 89 % (42-75); RBC Morphology Normal
[2019-04-04 09:19] LABS: Anion Gap 18 mmol/L (10-20); BUN (Urea Nitrogen) 53 mg/dL (9.8-20.1); Calc. Creatinine Clearance 38 mL/min (70-130); Calcium 8.7 mg/dL (7.8-10.44); Chloride 78 mmol/L (98-107); Estimated GFR-MDRD 55; Glucose 275 mg/dL (80-115); Magnesium 2.3 mg/dL (1.6-2.6); Phosphorus 2.8 mg/dL (2.3-4.7); Potassium 3.1 mmol/L (3.5-5.1); Sodium 135 mmol/L (136-145)
[2019-04-04 09:21] LABS: Carbon Dioxide 42 mmol/L (23-31)
[2019-04-04] MEDS: Ascorbic Acid 500 mg Chewable Tablet PO SCH ×2 (10:08→17:54)
[2019-04-04] MEDS: Potassium Chloride 10 MEQ TAB PO SCH ×2 (10:09→17:54)
[2019-04-04] MEDS: methylPREDNISolone Sod Succ 40 MG VIAL IVP SCH ×3 (10:09→23:00)
[2019-04-04] MEDS: Loratadine 10 MG TAB PO SCH (10:09)
[2019-04-04] MEDS: Polyethylene Glycol 3350 17 GM Packet PO SCH (10:09)
[2019-04-04] MEDS: Ferrous Sulfate 325 MG TAB PO SCH ×2 (10:09→17:54)
[2019-04-04] MEDS: Gabapentin 100 MG CAP PO SCH ×3 (10:09→20:22)
[2019-04-04] MEDS: Senokot S 8.6-50 MG TAB PO SCH ×2 (10:10→20:26)
[2019-04-04] MEDS: Fluticasone Propionate Nasal Spray 16 gm Bottle NASAL SCH (10:25)
[2019-04-04] MEDS: Mag-Al 1200 mg/1200 mg/30 ML UDCUP PO PRN (10:29)
--- NOTE | 2019-04-04 15:07 | PRG ---
DATE OF SERVICE: 04/01/2019 SUBJECTIVE: This is a 68-year-old female, status post mechanical fall postop day #5 from open reduction and internal fixation of left intertrochanteric femur fracture with dynamic hip screw and plate. The patient is currently doing well on high- flow nasal cannula . She is afiril , she is able to tolerate a small regular diet. There was no overnight event . She slept well overnight. She is able to tolerate Ensure scheduled t.i.d. OBJECTIVE: GENERAL: Thin female, awake and alert in mild distress due to severe CHF. VITAL SIGNS: Heart rate is 91, blood pressure 97/56, saturations on high-flow cannula oxygen is 90%. HEENT: Atraumatic and normocephalic. Wearing high-flow nasal cannula. NECK: Trachea midline. Supple. RESPIRATORY: Expiratory wheezing. Prolonged expiratory phase. Equal chest rise and fall. CARDIAC: Regular rate and rhythm. No murmur. EXTREMITIES: movable all 4 extremities. LABORATORY DATA: sodium 139, Ejection fraction 15- 20 % Cardiology consult with Dr. Jack , recommend to continue Coreg restrict free water , and continue Dopamin. IMPRESSION and PLAN: Status post mechanical fall, Femur fracture ORIF post op D # 5 chronic obstructive pulmonary disease, and acute exacerbation CHF acceptation, continue Dopamin and Lasix Job ID: [id number] MTDD
[2019-04-04] MEDS: DOPamine 400 MG/D5W 250 ML 250 ML IVPB SCH (15:27)
[2019-04-04] MEDS: Warfarin Sodium 1 MG TAB PO SCH (17:54)
[2019-04-04] MEDS: DOBUTamine 500 mg/250 ml 250 ML IVPB SCH (18:44)
--- NOTE | 2019-04-04 19:02 | PRG ---
DATE OF SERVICE: 04/04/2019 SUBJECTIVE: Ms. Peraza appears to be slowly improving. She has been sitting up in a chair. Her blood pressure has also been stable. She continues to be on low-dose dopamine and is dependent on dopamine. She does have a history of ischemic cardiomyopathy with a defibrillator. OBJECTIVE: GENERAL: Patient is a pleasant female, who is in no acute distress. She does appear older than stated age. VITAL SIGNS: Blood pressure 106/56, pulse 78, respirations 20. She is currently on high-flow oxygen. NEUROLOGIC: The patient is alert and oriented x3 with no focal neurologic deficits. HEENT: Sclerae without icterus. Mouth has moist mucous membranes with normal pallor. NECK: No JVD. Carotid upstroke brisk. No bruits bilaterally. LUNGS: Clear to auscultation with unlabored respirations. BACK: No scoliosis or kyphosis. CARDIAC: Regular rate and rhythm with normal S1 and S2. No S3 or S4 noted. No significant rubs, murmurs, thrills, or gallops noted throughout the precordium. PMI is not displaced. There is no parasternal heave. ABDOMEN: Soft, nontender, nondistended. No peritoneal signs present. No hepatosplenomegaly. No abnormal striae. EXTREMITIES: 2+ femoral and 2+ dorsalis pedis pulses. No cyanosis, clubbing, or edema. SKIN: No gross abnormalities. PERTINENT LABORATORY DATA: Hemoglobin 12.5. CO2 of 42, potassium 3.1, chloride 78. IMPRESSION: 1. Ischemic cardiomyopathy. 2. Recent open reduction and internal fixation of the left femur. RECOMMENDATIONS: Ms. Peraza does have a history of ischemic cardiomyopathy. She did undergo coronary angiography and was found to have severe multivessel disease. Medical therapy is recommended. Continue dopamine. She appears to be slowly improving clinically. May consider low-dose dopamine. We will reassess in a.m. Continue low-dose amiodarone at 200 mg one p.o. q.a.m. in addition to atorvastatin. Hold beta-blockers until her dopamine has been discontinued. Continue Coumadin. Job ID: [id number]
[2019-04-04] MEDS: Amiodarone 200 MG TAB PO SCH (20:22)
[2019-04-04] MEDS: Atorvastatin Calcium 20 MG TAB PO SCH (20:23)
[2019-04-04] MEDS: Montelukast Sodium 10 mg Tablet PO SCH (20:25)
--- NOTE | 2019-04-05 03:11 | PRG ---
DATE OF SERVICE: 04/05/2019 SUBJECTIVE: The patient remains in the IMCU bed with her dopamine drip at 5 mcg/kg/minute. The patient had no issues overnight. This morning, she has no complaints. She states that she had breakfast. She appears to be again more alert than she has been all previous days. OBJECTIVE: VITAL SIGNS: Temperature is 98.2, heart rate 75, blood pressure 98/56, respirations 19, oxygen saturations 100% on 36 L via high-flow nasal cannula. HEENT: Unchanged. LUNGS: Clear to auscultation with moderate effort. HEART: Regular rate and rhythm. ABDOMEN: Soft, flat, nontender with active bowel sounds. EXTREMITIES: Neurovascularly intact x4. LABORATORY FINDINGS: White blood cell count 12.2, hemoglobin 12.5, hematocrit 38.8, and platelets 205. Sodium 135, potassium 3.1, chloride 78, CO2 of 42, BUN 53, creatinine 1.00, glucose 275, magnesium 2.3, phosphorus 2.8. There were no radiographs to evaluate this morning. ASSESSMENT: 1. Status post fall resulting in open reduction and internal fixation of intertrochanteric femur fracture. 2. Resolving acute exacerbation, congestive heart failure. 3. Acute hypokalemia. 4. Acute contraction metabolic alkalosis. 5. Prerenal azotemia. PLAN: Plan to be to discontinue her diuresis. Continue dopamine per Cardiology Service. Continue to encourage physical and occupational therapy. Once the patient is stable with p.o., antiarrhythmics will discuss moving the patient to telemetry or surgical floor and eventually placement. Job ID: [id number]
[2019-04-05 05:16] LABS: #Lymphocytes 0.2 thou/uL (1.20-3.40); #Monocytes 0.5 thou/uL (0.11-0.59); #Neutrophils 10.8 thou/uL (1.40-6.50); %Basophils 0.1 % (0.0-1.0); %Eosinophils 0.1 % (0.0-10.0); %Monocytes 4.4 % (0.0-10.0); %Neutrophils 93.5 % (42.0-75.0); Hemoglobin 12.3 g/dL (12.0-16.0); Mean Corpuscular HGB CONC 32.2 g/dL (32.0-36.0); Mean Corpuscular Volume 93.3 fL (78.0-98.0); Mean Platelet Volume 8.4 fL (7.4-10.4); Platelet Count 206 thou/uL (130-400); RBC Distribution Width 15.2 % (11.5-14.5); Red Blood Cell (RBC) Count 4.09 mill/uL (4.20-5.40); White Blood Cell (WBC) Count 11.6 thou/uL (4.8-10.8)
[2019-04-05 05:18] LABS: INR-International Normal Ratio 2.6; Prothrombin Time 27.7 SEC (12.0-14.7)
[2019-04-05 05:38] LABS: BUN (Urea Nitrogen) 42 mg/dL (9.8-20.1); Calc. Creatinine Clearance 52 mL/min (70-130); Calcium 8.7 mg/dL (7.8-10.44); Estimated GFR-MDRD 79; Glucose 164 mg/dL (80-115); Magnesium 2.2 mg/dL (1.6-2.6); Phosphorus 2.6 mg/dL (2.3-4.7)
[2019-04-05 05:48] LABS: Carbon Dioxide 39 mmol/L (23-31)
[2019-04-05] MEDS: Levothyroxine Sodium 100 MCG TAB PO SCH (05:52)
[2019-04-05] MEDS: traMADol HCl 50 MG TAB PO SCH ×3 (05:52→17:58)
[2019-04-05] MEDS: Cephalexin 250 MG CAP PO SCH ×3 (05:52→17:58)
[2019-04-05 05:58] LABS: Chloride 78 mmol/L (98-107); Potassium 3.8 mmol/L (3.5-5.1); Sodium 130 mmol/L (136-145)
[2019-04-05 06:01] LABS: Anion Gap 17 mmol/L (10-20)
[2019-04-05] MEDS: Mometasone/Formoterol 120 PUFF INHALER INH SCH ×2 (07:23→18:48)
--- NOTE | 2019-04-05 08:45 | PDOC.CTH ---
Cardiology Progress Note - Subjective Pt appears weak today. Pt doing well on dopamine, dobutamine. Currnelt on HFO2. - Objective Vital Signs Temp Pulse Resp Pulse Ox 04/05/19 08:00 100 04/05/19 07:23 99 04/05/19 07:22 72 22 H 100 04/05/19 07:13 98.0 F 04/05/19 03:52 98.6 F 04/05/19 02:14 76 24 H 99 04/05/19 00:00 98.6 F 04/04/19 22:38 75 15 100 Admit Weight 85 lb 8 oz Weight 100 lb 3.2 oz 04/04/19 04/05/19 04/06/19 06:59 06:59 06:59 Intake Total 1510.3 820.5 Output Total 1985 1191 47 Balance -474.7 -370.5 -47 - Physical Examination General/Neuro: alert & oriented x3, NAD Neck: no JVD present Lungs: unlabored respirations Heart: RRR Abdomen: NT/ND, soft Extremities: + femoral B - Labs Result Diagrams: 04/05/19 04:52 04/05/19 04:52 - Assessment/Plan 1. Acute on chornic systolic CHF 2. Ischemic CM EF at 15-20% 3. S/P CABG in past, SVG to RCA occluded rest of grafts open 4. COPD. 5. S/P fall and hip Fx, ORIF of Left femur. 6. Severe MR Pt very tenuous given comorbidites On dopamione, dobutamine Attempts to wean off dopamine were not successful BP decrease to 80's. No BB for now May benefit from Bipap vs HFO2. May need pulmonary assistance Given current comorbidities, progrnosis appears poor Attempted to call Piper, pt daughter, and LM
[2019-04-05] MEDS: Polyethylene Glycol 3350 17 GM Packet PO SCH (09:14)
[2019-04-05] MEDS: Ascorbic Acid 500 mg Chewable Tablet PO SCH ×2 (09:14→16:25)
[2019-04-05] MEDS: Potassium Chloride 10 MEQ TAB PO SCH ×2 (09:15→16:26)
[2019-04-05] MEDS: Ferrous Sulfate 325 MG TAB PO SCH ×2 (09:15→16:25)
[2019-04-05] MEDS: Fluticasone Propionate Nasal Spray 16 gm Bottle NASAL SCH (09:15)
[2019-04-05] MEDS: methylPREDNISolone Sod Succ 40 MG VIAL IVP SCH ×2 (09:15→16:25)
[2019-04-05] MEDS: Gabapentin 100 MG CAP PO SCH ×3 (09:16→20:51)
[2019-04-05] MEDS: Senokot S 8.6-50 MG TAB PO SCH ×2 (09:16→20:49)
[2019-04-05] MEDS: Loratadine 10 MG TAB PO SCH (09:16)
--- NOTE | 2019-04-05 13:20 | PRG ---
DATE OF SERVICE: 04/05/2019 This is Corin Campo NP dictating a report for Jack Saavedra DO. SUBJECTIVE: This is a 68-year-old female who remains in the IMCU on a dopamine drip. The patient had no overnight issues. The patient is sitting up in the chair, receiving a neb treatment at this time. The patient reports that her pain is well controlled. The patient is postoperative day #9 on left hip repair, open reduction and internal fixation. The patient continues to tolerate a regular diet. OBJECTIVE: VITAL SIGNS: Blood pressure 124/58, respirations 20, SpO2 of 100% on high-flow nasal cannula, and pulse 65. HEENT: Unremarkable. LUNGS: Moderate effort, equal chest rise and fall. Clear bilateral. HEART: Regular rate and regular rhythm. No pedal edema. ABDOMEN: Soft, flat, nontender, and nondistended. EXTREMITIES: Moves all extremities, neurovascularly intact x4. LABORATORY DATA: WBC 11.6, RBC 4.09, hemoglobin 12.3, and hematocrit 38.2. Sodium 130, potassium 3.8, chloride 78, carbon dioxide 39, BUN 42, creatinine 0.73, estimated GFR 79, glucose 164, and calcium 8.7. Phosphorus 2.6. Magnesium 2.2. DIAGNOSTIC STUDIES: There are no diagnostics to review today. ASSESSMENT: 1. Status post fall. 2. Left intertrochanteric femur fracture, postoperative day #9 for open reduction and internal fixation. 3. Resolving acute exacerbation of congestive heart failure. 4. Hypokalemia, resolved. PLAN: Continue supportive care. Continue dopamine per Cardiology Service. Continue to encourage physical and occupational therapy. Once the patient is stable with p.o. antiarrhythmics, possible transfer to telemetry or surgical floor and then placement to inpatient rehab versus prison. Trauma will sign off on the patient at this time. We will consult Hospital Medicine to manage the patient medically with Cardiology Service. Plan was discussed with Dr. Saavedra, who agrees. Job ID: [id number]
[2019-04-05] MEDS: Warfarin Sodium 2 MG TAB PO SCH (16:26)
[2019-04-05] MEDS: Amiodarone 200 MG TAB PO SCH (20:50)
[2019-04-05] MEDS: Atorvastatin Calcium 20 MG TAB PO SCH (20:51)
[2019-04-05] MEDS: Montelukast Sodium 10 mg Tablet PO SCH (20:51)
[2019-04-06] MEDS: Cephalexin 250 MG CAP PO SCH ×5 (00:33→23:53)
[2019-04-06] MEDS: methylPREDNISolone Sod Succ 40 MG VIAL IVP SCH ×4 (00:33→23:54)
[2019-04-06] MEDS: traMADol HCl 50 MG TAB PO SCH ×3 (00:39→11:35)
[2019-04-06] MEDS: DOPamine 400 MG/D5W 250 ML 250 ML IVPB SCH (00:41)
[2019-04-06] MEDS: Levothyroxine Sodium 100 MCG TAB PO SCH (05:30)
[2019-04-06 06:53] LABS: INR-International Normal Ratio 2.5; PTT 29.2 SEC (22.9-36.1); Prothrombin Time 26.6 SEC (12.0-14.7)
[2019-04-06] MEDS: Mometasone/Formoterol 120 PUFF INHALER INH SCH ×2 (07:34→18:41)
--- NOTE | 2019-04-06 07:39 | PDOC.CTH ---
Cardiology Progress Note - Subjective Looks much better today. Off HF O2. Resting comfortabley. STill on /dop - Objective Vital Signs Temp Pulse Resp Pulse Ox 04/06/19 07:34 71 20 97 04/06/19 07:21 98.6 F 04/06/19 03:21 74 20 98 04/06/19 00:00 97.9 F 04/05/19 22:57 72 24 H 99 04/05/19 20:00 97.0 F L 100 Admit Weight 85 lb 8 oz Weight 105 lb 04/05/19 04/06/19 04/07/19 06:59 06:59 06:59 Intake Total 820.5 2292.0 Output Total 1191 774 Balance -370.5 1518.0 - Physical Examination General/Neuro: NAD Neck: no JVD present Lungs: CTA, unlabored respirations Heart: PMI normal, RRR Abdomen: NT/ND, soft Extremities: + edema B - Labs Result Diagrams: 04/05/19 04:52 04/05/19 04:52 - Assessment/Plan Acute on chronic systolic CHF Ischemic CM EF at 15-20% S/P CABG in past, SVG to RCA occluded rest of grafts open COPD. S/P fall and hip Fx, ORIF of Left femur. Severe MR Pt now with low BP on /dop At this point, she appears pressor dependent Consider milronone Given comorbities, options appear limited Not felt to be a transplant candidate increas dobutrex and wean off dopamine for now
[2019-04-06] MEDS: Polyethylene Glycol 3350 17 GM Packet PO SCH (08:51)
[2019-04-06] MEDS: Ferrous Sulfate 325 MG TAB PO SCH ×2 (08:53→17:27)
[2019-04-06] MEDS: Fluticasone Propionate Nasal Spray 16 gm Bottle NASAL SCH (08:53)
[2019-04-06] MEDS: Ascorbic Acid 500 mg Chewable Tablet PO SCH ×2 (08:53→17:27)
[2019-04-06] MEDS: Potassium Chloride 10 MEQ TAB PO SCH ×2 (08:53→17:27)
[2019-04-06] MEDS: Senokot S 8.6-50 MG TAB PO SCH ×3 (08:54→21:14)
[2019-04-06] MEDS: Gabapentin 100 MG CAP PO SCH ×3 (08:54→21:05)
[2019-04-06] MEDS: Loratadine 10 MG TAB PO SCH (08:54)
[2019-04-06] MEDS ORDERED: Fleet Enema 133 ML BOT PR PRN (12:49)
[2019-04-06] MEDS ORDERED: Milk Of Magnesia 30 ML UDCUP PO PRN (12:49)
--- NOTE | 2019-04-06 12:51 | PDOC.PN ---
- Subjective Encounter Start Date: 04/06/19 Encounter Start Time: 12:49 Ms. Peraza was seen today in follow-up, post op from an Left Intertrochanteric fracture. She also has a history of CHF, and AFIB on anticoagulation as well as COPD. She says she is breathing fine. She does not endorse much pain. She denies any chest pain. - Objective MAR Reviewed: Yes Vital Signs & Weight: Vital Signs (12 hours) Temp Pulse Resp Pulse Ox 04/06/19 10:38 97.4 F L 04/06/19 10:32 75 22 H 100 04/06/19 07:34 71 20 97 04/06/19 07:21 98.6 F 04/06/19 03:21 74 20 98 Weight Admit Weight 85 lb 8 oz Weight 105 lb Most Recent Monitor Data Heart Rate from ECG 78 NIBP 113/67 NIBP BP-Mean 82 Respiration from ECG 22 SpO2 99 I&O: 04/05/19 04/06/19 04/07/19 06:59 06:59 06:59 Intake Total 820.5 2292.0 Output Total 1191 774 Balance -370.5 1518.0 Result Diagrams: 04/05/19 04:52 04/05/19 04:52 Phys Exam - Physical Examination Constitutional: NAD () HEENT: PERRLA Respiratory: no wheezing, no rales, no rhonchi, clear to auscultation bilateral Cardiovascular: RRR, no significant murmur, no rub Gastrointestinal: soft, non-tender, no distention, positive bowel sounds Musculoskeletal: no edema, pulses present Neurological: non-focal, moves all 4 limbs Dx/Plan (1) Acute on chronic systolic (congestive) heart failure Code(s): I50.23 - ACUTE ON CHRONIC SYSTOLIC (CONGESTIVE) HEART FAILURE Status : Acute (2) Intertrochanteric fracture Code(s): S72.143A - DISPLACED INTERTROCHANTERIC FRACTURE OF UNSP FEMUR, INIT Status: Acute (3) COPD (chronic obstructive pulmonary disease) Status: Chronic (4) Atrial fibrillation Code(s): I48.91 - UNSPECIFIED ATRIAL FIBRILLATION Status: Chronic (5) SLE (systemic lupus erythematosus related syndrome) Code(s): M32.9 - SYSTEMIC LUPUS ERYTHEMATOSUS, UNSPECIFIED Status: Chronic (6) Celiac disease Code(s): K90.0 - CELIAC DISEASE Status: Chronic - Plan * Chart reviewed and patient examined. She is post femur fracture repair,and has a history of CHF, and has developed an exacerbation of systolic heart failure and is currently on Dopamine as well as a Dobutamine drip. Cardiology is managing * Primary Care has been transferred to the Hospitalist Service * AFIB - Her heart rate is stable- she is back on coumadin, and her INR is therapeutic at 2.5 today * COPD- stable- continue Duonebs as well as long acting beta-agonist * SLE- stable * Celiac disease?- consider gluten free diet * Constipation- will treat symptomatically * Will re-check her renal function and CBC
[2019-04-06 13:06] LABS: Hemoglobin 12.4 g/dL (12.0-16.0); Mean Corpuscular HGB CONC 32.1 g/dL (32.0-36.0); Mean Corpuscular Hemoglobin 29.5 pg (27.0-31.0); Mean Corpuscular Volume 91.9 fL (78.0-98.0); Mean Platelet Volume 8.1 fL (7.4-10.4); Platelet Count 222 thou/uL (130-400); RBC Distribution Width 14.8 % (11.5-14.5); White Blood Cell (WBC) Count 18.6 thou/uL (4.8-10.8)
[2019-04-06 13:27] LABS: BUN (Urea Nitrogen) 35 mg/dL (9.8-20.1); Calc. Creatinine Clearance 55 mL/min (70-130); Calcium 8.3 mg/dL (7.8-10.44); Estimated GFR-MDRD 78; Glucose 190 mg/dL (80-115)
[2019-04-06 13:33] LABS: Chloride 77 mmol/L (98-107); Potassium 3.8 mmol/L (3.5-5.1); Sodium 127 mmol/L (136-145)
[2019-04-06 13:40] LABS: Anion Gap 17 mmol/L (10-20); Carbon Dioxide 38 mmol/L (23-31)
[2019-04-06 13:54] LABS: Band 2 % (5-11); Lymphocytes 1 % (21-51); MDiff Complete? YES; Monocytes 2 % (0-10); Neutrophil 95 % (42-75); Platelet Morphology Comment Appears Adequate; RBC Morphology Normal; Vacuoles SLIGHT
[2019-04-06] MEDS: Warfarin Sodium 1 MG TAB PO SCH (17:28)
[2019-04-06] MEDS: Amiodarone 200 MG TAB PO SCH (21:04)
[2019-04-06] MEDS: Atorvastatin Calcium 20 MG TAB PO SCH (21:04)
[2019-04-06] MEDS: Montelukast Sodium 10 mg Tablet PO SCH (21:05)
[2019-04-07] MEDS: Levothyroxine Sodium 100 MCG TAB PO SCH (06:07)
[2019-04-07] MEDS: Cephalexin 250 MG CAP PO SCH ×4 (06:07→23:36)
[2019-04-07 06:38] LABS: INR-International Normal Ratio 2.3; PTT 28.3 SEC (22.9-36.1); Prothrombin Time 24.9 SEC (12.0-14.7)
[2019-04-07 06:47] LABS: Hemoglobin 11.7 g/dL (12.0-16.0); Lymphocytes 1 % (21-51); MDiff Complete? YES; Mean Corpuscular HGB CONC 32.1 g/dL (32.0-36.0); Mean Corpuscular Hemoglobin 29.8 pg (27.0-31.0); Mean Platelet Volume 8.2 fL (7.4-10.4); Monocytes 2 % (0-10); Neutrophil 97 % (42-75); Platelet Count 226 thou/uL (130-400); Platelet Morphology Comment Appears Adequate; Red Blood Cell (RBC) Count 3.93 mill/uL (4.20-5.40); White Blood Cell (WBC) Count 22.1 thou/uL (4.8-10.8)
[2019-04-07 06:50] LABS: BUN (Urea Nitrogen) 31 mg/dL (9.8-20.1); Calc. Creatinine Clearance 62 mL/min (70-130); Estimated GFR-MDRD 88; Glucose 153 mg/dL (80-115)
[2019-04-07 06:59] LABS: Anion Gap 18 mmol/L (10-20); Carbon Dioxide 36 mmol/L (23-31); Chloride 79 mmol/L (98-107); Potassium 3.8 mmol/L (3.5-5.1); Sodium 129 mmol/L (136-145)
[2019-04-07] MEDS: Polyethylene Glycol 3350 17 GM Packet PO SCH (08:41)
[2019-04-07] MEDS: DOBUTamine 500 mg/250 ml 250 ML IVPB SCH (08:41)
[2019-04-07] MEDS: methylPREDNISolone Sod Succ 40 MG VIAL IVP SCH ×3 (08:42→23:36)
[2019-04-07] MEDS: Fluticasone Propionate Nasal Spray 16 gm Bottle NASAL SCH (08:43)
[2019-04-07] MEDS: Senokot S 8.6-50 MG TAB PO SCH ×2 (08:43→20:23)
[2019-04-07] MEDS: Ascorbic Acid 500 mg Chewable Tablet PO SCH ×2 (08:44→17:14)
[2019-04-07] MEDS: Loratadine 10 MG TAB PO SCH (08:44)
[2019-04-07] MEDS: Potassium Chloride 10 MEQ TAB PO SCH ×2 (08:44→17:14)
[2019-04-07] MEDS: Gabapentin 100 MG CAP PO SCH ×3 (08:44→20:23)
[2019-04-07] MEDS: Ferrous Sulfate 325 MG TAB PO SCH ×2 (08:44→17:14)
[2019-04-07] MEDS: Mometasone/Formoterol 120 PUFF INHALER INH SCH ×2 (11:08→19:14)
--- NOTE | 2019-04-07 11:24 | PDOC.PN ---
- Subjective Encounter Start Date: 04/07/19 Encounter Start Time: 10:10 -: old records requested/rev Patient seen and examined. No new complaints. No overnight events - Objective MAR Reviewed: Yes Vital Signs & Weight: Vital Signs (12 hours) Temp Pulse Resp Pulse Ox 04/07/19 11:09 66 22 H 96 04/07/19 11:08 66 20 96 04/07/19 10:43 98.6 F 04/07/19 08:00 3 L 04/07/19 07:08 98.6 F 04/07/19 04:40 98.8 F 04/06/19 23:57 98.0 F Weight Admit Weight 85 lb 8 oz Weight 107 lb 8 oz Most Recent Monitor Data Heart Rate from ECG 63 NIBP 100/48 NIBP BP-Mean 65 Respiration from ECG 16 SpO2 98 I&O: 04/06/19 04/07/19 04/08/19 06:59 06:59 06:59 Intake Total 2292.0 1627.4 Output Total 774 650 Balance 1518.0 977.4 Result Diagrams: 04/07/19 06:02 04/07/19 06:02 EKG Reviewed by me: Yes Phys Exam - Physical Examination Constitutional: NAD cachectic HEENT: PERRLA, moist MMs, sclera anicteric Neck: no JVD, supple Respiratory: no wheezing, no rhonchi Cardiovascular: irregular SM at apex Gastrointestinal: soft, non-tender, no distention Musculoskeletal: no edema, pulses present Neurological: non-focal, normal sensation Lymphatic: no nodes Psychiatric: normal affect Skin: normal turgor Dx/Plan (1) Acute on chronic systolic ACC/AHA stage C congestive heart failure Code(s): I50.23 - ACUTE ON CHRONIC SYSTOLIC (CONGESTIVE) HEART FAILURE Status : Acute (2) Hyponatremia Code(s): E87.1 - HYPO-OSMOLALITY AND HYPONATREMIA Status: Acute (3) Intertrochanteric fracture Code(s): S72.143A - DISPLACED INTERTROCHANTERIC FRACTURE OF UNSP FEMUR, INIT Status: Acute (4) Atrial fibrillation Code(s): I48.91 - UNSPECIFIED ATRIAL FIBRILLATION Status: Chronic (5) COPD (chronic obstructive pulmonary disease) Status: Chronic (6) Celiac disease Code(s): K90.0 - CELIAC DISEASE Status: Chronic (7) GERD (gastroesophageal reflux disease) Code(s): K21.9 - GASTRO-ESOPHAGEAL REFLUX DISEASE WITHOUT ESOPHAGITIS Status: Chronic (8) Hypothyroidism Code(s): E03.9 - HYPOTHYROIDISM, UNSPECIFIED Status: Chronic (9) SLE (systemic lupus erythematosus) Code(s): M32.9 - SYSTEMIC LUPUS ERYTHEMATOSUS, UNSPECIFIED Status: Chronic (10) Severe mitral regurgitation Code(s): I34.0 - NONRHEUMATIC MITRAL (VALVE) INSUFFICIENCY Status: Chronic (11) Protein-calorie malnutrition, moderate Code(s): E44.0 - MODERATE PROTEIN-CALORIE MALNUTRITION Status: Chronic - Plan cont current plan of care * cardiology following, currently on dopamin and dobutamine * medication reviewed as below * symptomatic treatment. * wbc is high, may be due to solumedrol, does not have clinical evidence of infection, on oral keflex * INR is therapeutic * monitor sodium * nutritional support * trauma team following Review of Systems - Review of Systems Respiratory: Shortness of Breath, SOB with Excertion. negative: Cough, Dry, Hemoptysis, Pleuritic Pain, Sputum, Wheezing Cardiovascular: negative: chest pain, palpitations, orthopnea, paroxysmal nocturnal dyspnea, edema, light headedness, other Gastrointestinal: negative: Nausea, Vomiting, Abdominal Pain, Diarrhea, Constipation, Melena, Hematochezia, Other Genitourinary: negative: Dysuria, Frequency, Incontinence, Hematuria, Retention , Other Musculoskeletal: negative: Neck Pain, Shoulder Pain, Arm Pain, Back Pain, Hand Pain, Leg Pain, Foot Pain, Other Skin: negative: Rash, Lesions, Salvatore, Bruising, Other - Medications/Allergies Allergies/Adverse Reactions: Allergies Allergy/AdvReac Type Severity Reaction Status Date / Time gluten Allergy Verified 03/26/19 04:01 ibuprofen AdvReac Verified 03/26/19 07:28 Medications: Current Medications Acetaminophen (Tylenol) 1,000 mg PO Q6H PRN PRN Reason: Mild Pain (1-3) Last Admin: 04/04/19 17:58 Dose: 1,000 mg Al Hydroxide/Mg Hydroxide (Maalox) 30 ml PO Q6H PRN PRN Reason: Heartburn or Indigestion Last Admin: 04/04/19 10:29 Dose: 30 ml Albuterol/Ipratropium (Duoneb) 3 ml NEB Q4HR PRN PRN Reason: SOB &/or Wheezing Albuterol/Ipratropium (Duoneb) 3 ml EZPAP [id number] [facility] [place] Last Admin: 04/07/19 11:09 Dose: 3 ml Amiodarone HCl (Cordarone) 200 mg PO 2100 [facility] [place] Last Admin: 04/06/19 21:04 Dose: Not Given Ascorbic Acid (Vitamin C) 500 mg PO BID-WM [facility] [place] Last Admin: 04/07/19 08:44 Dose: 500 mg Atorvastatin Calcium (Lipitor) 20 mg PO HS [facility] [place] Last Admin: 04/06/19 21:04 Dose: 20 mg Calcium Carbonate (Tums) 1,000 mg PO QIDPRN PRN PRN Reason: . Cephalexin (Keflex) 250 mg PO Q6HR [facility] [place] Stop: 04/08/19 18:01 Last Admin: 04/07/19 06:07 Dose: 250 mg Dextrose/Water (Dextrose 50%) 25 gm SLOW IVP PRN PRN PRN Reason: Hypoglycemia Ferrous Sulfate (Feosol) 325 mg PO BID-WM [facility] [place] Last Admin: 04/07/19 08:44 Dose: 325 mg Fluticasone Propionate (Flonase Nasal [place]) 0 gm NASAL DAILY [facility] [place] Last Admin: 04/07/19 08:43 Dose: 1 spr Gabapentin (Neurontin) 100 mg PO TID [facility] [place] Last Admin: 04/07/19 08:44 Dose: 100 mg Glucagon (Glucagon) 1 mg IM PRN PRN PRN Reason: Hypoglycemia Hydralazine HCl (Apresoline) 10 mg SLOW IVP Q4H PRN PRN Reason: SBP > 170 or DBP > 100 Dextrose/Water (D5w) 1,000 mls @ 0 mls/hr IV .Q0M PRN PRN Reason: Hypoglycemia Dopamine HCl/Dextrose (Dopamine 400 Mg/D5w 250 Ml) 250 mls @ 7.272 mls/hr IVPB INF [facility] [place]; Protocol Last Admin: 04/06/19 00:41 Dose: 250 mls Dobutamine HCl/Dextrose (Dobutamine 500 Mg/250 Ml) 250 mls @ 3.374 mls/hr IVPB INF [facility]; Protocol Last Admin: 04/07/19 08:41 Dose: 250 mls Levothyroxine Sodium (Synthroid) 50 mcg PO SuSa@0600 [facility] [place] Last Admin: 04/03/19 05:48 Dose: 50 mcg Levothyroxine Sodium (Synthroid) 100 mcg PO MoTuWeThFr@0600 [facility] [place] Last Admin: 04/07/19 06:07 Dose: 100 mcg Loratadine (Claritin) 10 mg PO DAILY [facility] [place] Last Admin: 04/07/19 08:44 Dose: 10 mg Magnesium Hydroxide (Milk Of Magnesium) 30 ml PO DAILYPRN PRN PRN Reason: Constipation Methylprednisolone Sodium Succinate (Solu-Medrol) 40 mg IVP 0000,0800,1600 [facility] [place] Last Admin: 04/07/19 08:42 Dose: 40 mg Miscellaneous Medication (Pharmacy To Dose) 0 each PO 1700 [facility] [place] Last Admin: 04/06/19 17:28 Dose: Not Given Mometasone Furoate/Formoterol Fumar (Dulera 200 Mcg/5 Mcg Inhaler) 2 puff INH BID-RT [facility] [place] Last Admin: 04/07/19 11:08 Dose: 2 puff Montelukast Sodium (Singulair) 10 mg PO HS [facility] [place] Last Admin: 04/06/19 21:05 Dose: 10 mg Ondansetron HCl (Zofran Odt) 4 mg PO Q6H PRN PRN Reason: Nausea/Vomiting Last Admin: 03/28/19 23:51 Dose: 4 mg Ondansetron HCl (Zofran) 4 mg IVP Q6H PRN PRN Reason: Nausea Last Admin: 03/26/19 13:45 Dose: 4 mg Pantoprazole Sodium (Protonix) 40 mg PO 2100 [facility] [place] Last Admin: 04/06/19 21:04 Dose: 40 mg Polyethylene Glycol (Miralax) 17 gm PO DAILY [facility] [place] Last Admin: 04/07/19 08:41 Dose: 17 gm Potassium Chloride (Klor-Con 10) 10 meq PO BID-WM [facility] [place] Last Admin: 04/07/19 08:44 Dose: 10 meq Senna/Docusate Sodium (Senokot S) 2 tab PO BID [facility] [place] Last Admin: 04/07/19 08:43 Dose: 2 tab Sodium Biphosphate/Sodium Phosphate (Fleet Enema) 133 ml ME ONE PRN PRN Reason: Constipation Stop: 04/09/19 12:50 Last Admin: 04/06/19 14:40 Dose: 133 ml Sodium Chloride (Flush - Normal Saline) 10 ml IVF PRN PRN PRN Reason: Saline Flush Last Admin: 04/01/19 20:15 Dose: 10 ml Tramadol HCl (Ultram) 50 mg PO Q6HR PRN PRN Reason: Pain Warfarin Sodium (Coumadin) 1 mg PO MoWeFr@1700 [facility] [place] Last Admin: 04/06/19 17:28 Dose: 1 mg Warfarin Sodium (Coumadin) 2 mg PO SuTuThSa@1700 [facility] [place] Last Admin: 04/05/19 16:26 Dose: 2 mg
--- NOTE | 2019-04-07 12:21 | PDOC.CTH ---
Cardiology Progress Note - Subjective Pt. seen and eval. by me this AM. No cardiac complaints, ate some breakfast. - Objective Vital Signs Temp Pulse Resp Pulse Ox 04/07/19 11:09 66 22 H 96 04/07/19 11:08 66 20 96 04/07/19 10:43 98.6 F 04/07/19 08:00 3 L 04/07/19 07:08 98.6 F 04/07/19 04:40 98.8 F Admit Weight 85 lb 8 oz Weight 107 lb 8 oz 04/06/19 04/07/19 04/08/19 06:59 06:59 06:59 Intake Total 2292.0 1627.4 Output Total 774 650 Balance 1518.0 977.4 - Physical Examination General/Neuro: alert & oriented x3 Neck: no JVD present Lungs: other: (fine bibasilar rales.) Heart: RRR (pacing 100%) Abdomen: soft Extremities: other: (mild ankle edema.) - Labs Result Diagrams: 04/07/19 06:02 04/07/19 06:02 - Assessment/Plan Acute on chronic systolic CHF Ischemic CM EF at 15-20%. s/p Bi-V AICD S/P CABG in past, SVG to RCA occluded rest of grafts open COPD. S/P fall and hip Fx, ORIF of Left femur. Severe MR Hyponatremia. Pre-renal azotemia. Pt now with low BP on /dop. Still continuing to taper. At this point, she appears pressor dependent Consider milronone Given comorbities, options appear limited Not felt to be a transplant candidate increas dobutrex and wean off dopamine for now
[2019-04-07] MEDS: Warfarin Sodium 2 MG TAB PO SCH (17:14)
[2019-04-07] MEDS: Montelukast Sodium 10 mg Tablet PO SCH (20:23)
[2019-04-07] MEDS: Amiodarone 200 MG TAB PO SCH (20:23)
[2019-04-07] MEDS: Atorvastatin Calcium 20 MG TAB PO SCH (20:24)
[2019-04-08 04:22] LABS: PTT 29.9 SEC (22.9-36.1)
[2019-04-08 04:23] LABS: INR-International Normal Ratio 2.4; Prothrombin Time 26.1 SEC (12.0-14.7)
[2019-04-08] MEDS: Levothyroxine Sodium 100 MCG TAB PO SCH (05:18)
[2019-04-08] MEDS: Cephalexin 250 MG CAP PO SCH ×3 (05:18→17:26)
[2019-04-08 07:39] LABS: #Lymphocytes 0.4 thou/uL (1.20-3.40); #Monocytes 0.9 thou/uL (0.11-0.59); #Neutrophils 20.9 thou/uL (1.40-6.50); %Basophils 0.1 % (0.0-1.0); %Eosinophils 0.1 % (0.0-10.0); %Lymphocytes 1.8 % (21.0-51.0); %Neutrophils 94.1 % (42.0-75.0); Hemoglobin 11.2 g/dL (12.0-16.0); Mean Corpuscular HGB CONC 31.4 g/dL (32.0-36.0); Mean Corpuscular Hemoglobin 28.8 pg (27.0-31.0); Mean Corpuscular Volume 91.8 fL (78.0-98.0); Mean Platelet Volume 8.3 fL (7.4-10.4); Platelet Count 224 thou/uL (130-400); White Blood Cell (WBC) Count 22.2 thou/uL (4.8-10.8)
[2019-04-08 07:58] LABS: BUN (Urea Nitrogen) 39 mg/dL (9.8-20.1); Calc. Creatinine Clearance 54 mL/min (70-130); Calcium 8.2 mg/dL (7.8-10.44); Estimated GFR-MDRD 75; Glucose 167 mg/dL (80-115); Magnesium 2.1 mg/dL (1.6-2.6); Phosphorus 2.5 mg/dL (2.3-4.7)
[2019-04-08] MEDS: Mometasone/Formoterol 120 PUFF INHALER INH SCH ×2 (08:02→18:49)
[2019-04-08 08:07] LABS: Anion Gap 19 mmol/L (10-20); Carbon Dioxide 36 mmol/L (23-31); Chloride 80 mmol/L (98-107); Potassium 3.6 mmol/L (3.5-5.1); Sodium 131 mmol/L (136-145)
[2019-04-08] MEDS: Ferrous Sulfate 325 MG TAB PO SCH ×2 (10:07→17:25)
[2019-04-08] MEDS: Ascorbic Acid 500 mg Chewable Tablet PO SCH ×2 (10:07→17:25)
[2019-04-08] MEDS: methylPREDNISolone Sod Succ 40 MG VIAL IVP SCH ×3 (10:07→23:36)
[2019-04-08] MEDS: Potassium Chloride 10 MEQ TAB PO SCH ×2 (10:07→17:26)
[2019-04-08] MEDS: Gabapentin 100 MG CAP PO SCH ×3 (10:08→20:35)
[2019-04-08] MEDS: Polyethylene Glycol 3350 17 GM Packet PO SCH (10:08)
[2019-04-08] MEDS: Loratadine 10 MG TAB PO SCH (10:08)
[2019-04-08] MEDS: Fluticasone Propionate Nasal Spray 16 gm Bottle NASAL SCH (10:09)
[2019-04-08] MEDS: Senokot S 8.6-50 MG TAB PO SCH ×2 (10:09→20:35)
--- NOTE | 2019-04-08 12:00 | PDOC.PN ---
- Subjective Encounter Start Date: 04/08/19 Encounter Start Time: 10:45 -: old records requested/rev Patient seen and examined. No new complaints. No overnight events - Objective MAR Reviewed: Yes Vital Signs & Weight: Vital Signs (12 hours) Temp Pulse Resp Pulse Ox 04/08/19 11:08 98.8 F 04/08/19 08:03 62 17 93 L 04/08/19 07:42 92 L 04/08/19 07:33 98.6 F 04/08/19 03:58 98.3 F 04/08/19 00:21 98.6 F Weight Admit Weight 85 lb 8 oz Weight 108 lb 8 oz Most Recent Monitor Data Heart Rate from ECG 62 NIBP 97/47 NIBP BP-Mean 63 Respiration from ECG 21 SpO2 94 I&O: 04/07/19 04/08/19 04/09/19 06:59 06:59 06:59 Intake Total 1627.4 1704.6 Output Total 650 200 Balance 977.4 1504.6 Result Diagrams: 04/08/19 07:25 04/08/19 07:25 EKG Reviewed by me: Yes (nsr) Phys Exam - Physical Examination Constitutional: NAD HEENT: PERRLA, moist MMs, sclera anicteric Neck: no JVD, supple Respiratory: no wheezing, no rales, no rhonchi Cardiovascular: RRR, no significant murmur, no rub Gastrointestinal: soft, non-tender, no distention, positive bowel sounds Musculoskeletal: no edema, pulses present Neurological: non-focal, normal sensation Lymphatic: no nodes Psychiatric: normal affect, A&O x 3 Skin: no rash, normal turgor Dx/Plan (1) Acute on chronic systolic ACC/AHA stage C congestive heart failure Code(s): I50.23 - ACUTE ON CHRONIC SYSTOLIC (CONGESTIVE) HEART FAILURE Status : Acute (2) Hyponatremia Code(s): E87.1 - HYPO-OSMOLALITY AND HYPONATREMIA Status: Acute (3) Intertrochanteric fracture Code(s): S72.143A - DISPLACED INTERTROCHANTERIC FRACTURE OF UNSP FEMUR, INIT Status: Acute (4) Atrial fibrillation Code(s): I48.91 - UNSPECIFIED ATRIAL FIBRILLATION Status: Chronic (5) COPD (chronic obstructive pulmonary disease) Status: Chronic (6) Celiac disease Code(s): K90.0 - CELIAC DISEASE Status: Chronic (7) GERD (gastroesophageal reflux disease) Code(s): K21.9 - GASTRO-ESOPHAGEAL REFLUX DISEASE WITHOUT ESOPHAGITIS Status: Chronic (8) Hypothyroidism Code(s): E03.9 - HYPOTHYROIDISM, UNSPECIFIED Status: Chronic (9) SLE (systemic lupus erythematosus) Code(s): M32.9 - SYSTEMIC LUPUS ERYTHEMATOSUS, UNSPECIFIED Status: Chronic (10) Severe mitral regurgitation Code(s): I34.0 - NONRHEUMATIC MITRAL (VALVE) INSUFFICIENCY Status: Chronic (11) Protein-calorie malnutrition, moderate Code(s): E44.0 - MODERATE PROTEIN-CALORIE MALNUTRITION Status: Chronic - Plan cont current plan of care * medication reviewed as below * symptomatic treatment * continue dobutamine drip * cardiology following Review of Systems - Review of Systems ENT: negative: Ear Pain, Ear Discharge, Nose Pain, Nose Discharge, Nose Congestion, Mouth Pain, Mouth Swelling, Throat Pain, Throat Swelling, Other Respiratory: negative: Cough, Dry, Shortness of Breath, Hemoptysis, SOB with Excertion, Pleuritic Pain, Sputum, Wheezing Cardiovascular: negative: chest pain, palpitations, orthopnea, paroxysmal nocturnal dyspnea, edema, light headedness, other Gastrointestinal: negative: Nausea, Vomiting, Abdominal Pain, Diarrhea, Constipation, Melena, Hematochezia, Other Genitourinary: negative: Dysuria, Frequency, Incontinence, Hematuria, Retention , Other Musculoskeletal: negative: Neck Pain, Shoulder Pain, Arm Pain, Back Pain, Hand Pain, Leg Pain, Foot Pain, Other - Medications/Allergies Allergies/Adverse Reactions: Allergies Allergy/AdvReac Type Severity Reaction Status Date / Time gluten Allergy Verified 03/26/19 04:01 ibuprofen AdvReac Verified 03/26/19 07:28 Medications: Current Medications Acetaminophen (Tylenol) 1,000 mg PO Q6H PRN PRN Reason: Mild Pain (1-3) Last Admin: 04/04/19 17:58 Dose: 1,000 mg Al Hydroxide/Mg Hydroxide (Maalox) 30 ml PO Q6H PRN PRN Reason: Heartburn or Indigestion Last Admin: 04/04/19 10:29 Dose: 30 ml Albuterol/Ipratropium (Duoneb) 3 ml NEB Q4HR PRN PRN Reason: SOB &/or Wheezing Albuterol/Ipratropium (Duoneb) 3 ml EZPAP [id number] [facility] Last Admin: 04/08/19 10:52 Dose: Not Given Amiodarone HCl (Cordarone) 200 mg PO 2100 [facility] Last Admin: 04/07/19 20:23 Dose: 200 mg Ascorbic Acid (Vitamin C) 500 mg PO BID-WM [facility] Last Admin: 04/08/19 10:07 Dose: 500 mg Atorvastatin Calcium (Lipitor) 20 mg PO HS [facility] Last Admin: 04/07/19 20:24 Dose: 20 mg Calcium Carbonate (Tums) 1,000 mg PO QIDPRN PRN PRN Reason: . Cephalexin (Keflex) 250 mg PO Q6HR [facility] Stop: 04/08/19 18:01 Last Admin: 04/08/19 05:18 Dose: 250 mg Dextrose/Water (Dextrose 50%) 25 gm SLOW IVP PRN PRN PRN Reason: Hypoglycemia Ferrous Sulfate (Feosol) 325 mg PO BID-[facility] Last Admin: 04/08/19 10:07 Dose: 325 mg Fluticasone Propionate (Flonase Nasal [place]) 0 gm NASAL DAILY [facility] Last Admin: 04/08/19 10:09 Dose: 1 spr Gabapentin (Neurontin) 100 mg PO TID [facility] Last Admin: 04/08/19 10:08 Dose: 100 mg Glucagon (Glucagon) 1 mg IM PRN PRN PRN Reason: Hypoglycemia Hydralazine HCl (Apresoline) 10 mg SLOW IVP Q4H PRN PRN Reason: SBP > 170 or DBP > 100 Dextrose/Water (D5w) 1,000 mls @ 0 mls/hr IV .Q0M PRN PRN Reason: Hypoglycemia Dopamine HCl/Dextrose (Dopamine 400 Mg/D5w 250 Ml) 250 mls @ 7.272 mls/hr IVPB INF [facility]; Protocol Last Admin: 04/06/19 00:41 Dose: 250 mls Dobutamine HCl/Dextrose (Dobutamine 500 Mg/250 Ml) 250 mls @ 3.374 mls/hr IVPB INF [facility]; Protocol Last Admin: 04/07/19 08:41 Dose: 250 mls Levothyroxine Sodium (Synthroid) 50 mcg PO SuSa@0600 [facility] Last Admin: 04/03/19 05:48 Dose: 50 mcg Levothyroxine Sodium (Synthroid) 100 mcg PO MoTuWeThFr@0600 [facility] Last Admin: 04/08/19 05:18 Dose: 100 mcg Loratadine (Claritin) 10 mg PO DAILY [facility] Last Admin: 04/08/19 10:08 Dose: 10 mg Magnesium Hydroxide (Milk Of Magnesium) 30 ml PO DAILYPRN PRN PRN Reason: Constipation Methylprednisolone Sodium Succinate (Solu-Medrol) 40 mg IVP 0000,0800,1600 [facility] Last Admin: 04/08/19 10:07 Dose: 40 mg Miscellaneous Medication (Pharmacy To Dose) 0 each PO 1700 [facility] Last Admin: 04/07/19 17:15 Dose: Not Given Mometasone Furoate/Formoterol Fumar (Dulera 200 Mcg/5 Mcg Inhaler) 2 puff INH BID-RT [facility] Last Admin: 04/08/19 08:02 Dose: 2 puff Montelukast Sodium (Singulair) 10 mg PO HS [facility] Last Admin: 04/07/19 20:23 Dose: 10 mg Ondansetron HCl (Zofran Odt) 4 mg PO Q6H PRN PRN Reason: Nausea/Vomiting Last Admin: 03/28/19 23:51 Dose: 4 mg Ondansetron HCl (Zofran) 4 mg IVP Q6H PRN PRN Reason: Nausea Last Admin: 03/26/19 13:45 Dose: 4 mg Pantoprazole Sodium (Protonix) 40 mg PO 2100 [facility] Last Admin: 04/07/19 20:23 Dose: 40 mg Polyethylene Glycol (Miralax) 17 gm PO DAILY [facility] Last Admin: 04/08/19 10:08 Dose: 17 gm Potassium Chloride (Klor-Con 10) 10 meq PO BID-WM [facility] Last Admin: 04/08/19 10:07 Dose: 10 meq Senna/Docusate Sodium (Senokot S) 2 tab PO BID [facility] Last Admin: 04/08/19 10:09 Dose: 2 tab Sodium Biphosphate/Sodium Phosphate (Fleet Enema) 133 ml NC ONE PRN PRN Reason: Constipation Stop: 04/09/19 12:50 Last Admin: 04/06/19 14:40 Dose: 133 ml Sodium Chloride (Flush - Normal Saline) 10 ml IVF PRN PRN PRN Reason: Saline Flush Last Admin: 04/01/19 20:15 Dose: 10 ml Tramadol HCl (Ultram) 50 mg PO Q6HR PRN PRN Reason: Pain Warfarin Sodium (Coumadin) 1 mg PO MoWeFr@1700 [facility] Last Admin: 04/06/19 17:28 Dose: 1 mg Warfarin Sodium (Coumadin) 2 mg PO SuTuThSa@1700 [facility] Last Admin: 04/07/19 17:14 Dose: 2 mg
[2019-04-08] MEDS ORDERED: DOBUTamine 500 mg/250 ml 250 ML IVPB SCH (15:00)
[2019-04-08] MEDS: Warfarin Sodium 1 MG TAB PO SCH (17:26)
[2019-04-08] MEDS: Calcium Carbonate 500 MG ChewTAB PO PRN (20:32)
[2019-04-08] MEDS: Atorvastatin Calcium 20 MG TAB PO SCH (20:35)
[2019-04-08] MEDS: Amiodarone 200 MG TAB PO SCH (20:35)
[2019-04-08] MEDS: Montelukast Sodium 10 mg Tablet PO SCH (21:39)
[2019-04-09] MEDS: Calcium Carbonate 500 MG ChewTAB PO PRN ×2 (01:37→09:24)
[2019-04-09 05:26] LABS: INR-International Normal Ratio 1.9; PTT 27.5 SEC (22.9-36.1); Prothrombin Time 21.5 SEC (12.0-14.7)
[2019-04-09 05:47] LABS: BUN (Urea Nitrogen) 41 mg/dL (9.8-20.1); Calc. Creatinine Clearance 55 mL/min (70-130); Calcium 7.8 mg/dL (7.8-10.44); Estimated GFR-MDRD 76; Glucose 152 mg/dL (80-115)
[2019-04-09 05:56] LABS: Anion Gap 16 mmol/L (10-20); Carbon Dioxide 35 mmol/L (23-31); Chloride 80 mmol/L (98-107); Potassium 3.6 mmol/L (3.5-5.1); Sodium 127 mmol/L (136-145)
[2019-04-09] MEDS: Levothyroxine Sodium 50 MCG TAB PO SCH (06:07)
[2019-04-09] MEDS: Loratadine 10 MG TAB PO SCH (09:15)
[2019-04-09] MEDS: Ascorbic Acid 500 mg Chewable Tablet PO SCH ×2 (09:15→16:17)
[2019-04-09] MEDS: Ferrous Sulfate 325 MG TAB PO SCH ×2 (09:15→16:17)
[2019-04-09] MEDS: Polyethylene Glycol 3350 17 GM Packet PO SCH (09:15)
[2019-04-09] MEDS: Senokot S 8.6-50 MG TAB PO SCH (09:15)
[2019-04-09] MEDS: Gabapentin 100 MG CAP PO SCH ×3 (09:16→21:05)
[2019-04-09] MEDS: Potassium Chloride 10 MEQ TAB PO SCH ×2 (09:16→16:17)
[2019-04-09] MEDS: methylPREDNISolone Sod Succ 40 MG VIAL IVP SCH (09:16)
[2019-04-09] MEDS: Fluticasone Propionate Nasal Spray 16 gm Bottle NASAL SCH (09:18)
--- NOTE | 2019-04-09 10:48 | PDOC.PN ---
- Subjective Encounter Start Date: 04/09/19 Encounter Start Time: 10:10 pt has acid reflux and has diarrhoea, she is on dobutamine drip, - Objective MAR Reviewed: Yes Vital Signs & Weight: Vital Signs (12 hours) Temp Pulse Ox 04/09/19 07:33 98.0 F 04/09/19 06:42 100 04/09/19 03:46 97.5 F L 04/08/19 23:47 97.7 F Weight Admit Weight 85 lb 8 oz Weight 106 lb 0.677 oz Most Recent Monitor Data Heart Rate from ECG 60 NIBP 117/55 NIBP BP-Mean 75 Respiration from ECG 20 SpO2 100 I&O: 04/08/19 04/09/19 04/10/19 06:59 06:59 06:59 Intake Total 1704.6 1198 Output Total 200 Balance 1504.6 1198 Result Diagrams: 04/08/19 07:25 04/09/19 05:09 EKG Reviewed by me: Yes Phys Exam - Physical Examination Constitutional: NAD HEENT: PERRLA, moist MMs, sclera anicteric Neck: no JVD, supple Respiratory: no wheezing, no rales, no rhonchi Cardiovascular: no significant murmur, no rub, irregular Gastrointestinal: soft, non-tender, no distention Musculoskeletal: no edema, pulses present Neurological: non-focal, normal sensation Lymphatic: no nodes Psychiatric: normal affect Skin: no rash, normal turgor Dx/Plan (1) Acute on chronic systolic ACC/AHA stage C congestive heart failure Code(s): I50.23 - ACUTE ON CHRONIC SYSTOLIC (CONGESTIVE) HEART FAILURE Status : Acute (2) Hyponatremia Code(s): E87.1 - HYPO-OSMOLALITY AND HYPONATREMIA Status: Acute (3) Intertrochanteric fracture Code(s): S72.143A - DISPLACED INTERTROCHANTERIC FRACTURE OF UNSP FEMUR, INIT Status: Acute (4) Atrial fibrillation Code(s): I48.91 - UNSPECIFIED ATRIAL FIBRILLATION Status: Chronic (5) COPD (chronic obstructive pulmonary disease) Status: Chronic (6) Celiac disease Code(s): K90.0 - CELIAC DISEASE Status: Chronic (7) GERD (gastroesophageal reflux disease) Code(s): K21.9 - GASTRO-ESOPHAGEAL REFLUX DISEASE WITHOUT ESOPHAGITIS Status: Chronic (8) Hypothyroidism Code(s): E03.9 - HYPOTHYROIDISM, UNSPECIFIED Status: Chronic (9) SLE (systemic lupus erythematosus) Code(s): M32.9 - SYSTEMIC LUPUS ERYTHEMATOSUS, UNSPECIFIED Status: Chronic (10) Severe mitral regurgitation Code(s): I34.0 - NONRHEUMATIC MITRAL (VALVE) INSUFFICIENCY Status: Chronic (11) Protein-calorie malnutrition, moderate Code(s): E44.0 - MODERATE PROTEIN-CALORIE MALNUTRITION Status: Chronic - Plan cont current plan of care, respiratory therapy * will reduce solumderol 20 mg iv daily * medication reviewed as below * symptomatic treatment * dobutamine drip as per cardiology. * dc scheduled stool softener/laxative Review of Systems - Review of Systems Constitutional: weakness. negative: fever, chills, sweats, malaise, other ENT: negative: Ear Pain, Ear Discharge, Nose Pain, Nose Discharge, Nose Congestion, Mouth Pain, Mouth Swelling, Throat Pain, Throat Swelling, Other Respiratory: negative: Cough, Dry, Shortness of Breath, Hemoptysis, SOB with Excertion, Pleuritic Pain, Sputum, Wheezing Cardiovascular: negative: chest pain, palpitations, orthopnea, paroxysmal nocturnal dyspnea, edema, light headedness, other Gastrointestinal: Diarrhea. negative: Nausea, Vomiting, Abdominal Pain, Constipation, Melena, Hematochezia, Other Genitourinary: negative: Dysuria, Frequency, Incontinence, Hematuria, Retention , Other Musculoskeletal: negative: Neck Pain, Shoulder Pain, Arm Pain, Back Pain, Hand Pain, Leg Pain, Foot Pain, Other Skin: negative: Rash, Lesions, Salvatore, Bruising, Other - Medications/Allergies Allergies/Adverse Reactions: Allergies Allergy/AdvReac Type Severity Reaction Status Date / Time gluten Allergy Verified 03/26/19 04:01 ibuprofen AdvReac Verified 03/26/19 07:28 Medications: Current Medications Acetaminophen (Tylenol) 1,000 mg PO Q6H PRN PRN Reason: Mild Pain (1-3) Last Admin: 04/04/19 17:58 Dose: 1,000 mg Al Hydroxide/Mg Hydroxide (Maalox) 30 ml PO Q6H PRN PRN Reason: Heartburn or Indigestion Last Admin: 04/04/19 10:29 Dose: 30 ml Albuterol/Ipratropium (Duoneb) 3 ml NEB Q4HR PRN PRN Reason: SOB &/or Wheezing Albuterol/Ipratropium (Duoneb) 3 ml EZPAP [id number] [facility] Last Admin: 04/09/19 06:41 Dose: Not Given Amiodarone HCl (Cordarone) 200 mg PO 2100 [facility] Last Admin: 04/08/19 20:35 Dose: 200 mg Ascorbic Acid (Vitamin C) 500 mg PO BID-WM [facility] Last Admin: 04/09/19 09:15 Dose: 500 mg Atorvastatin Calcium (Lipitor) 20 mg PO HS [facility] Last Admin: 04/08/19 20:35 Dose: 20 mg Calcium Carbonate (Tums) 1,000 mg PO QIDPRN PRN PRN Reason: . Last Admin: 04/09/19 09:24 Dose: 1,000 mg Dextrose/Water (Dextrose 50%) 25 gm SLOW IVP PRN PRN PRN Reason: Hypoglycemia Ferrous Sulfate (Feosol) 325 mg PO BID-[facility] Last Admin: 04/09/19 09:15 Dose: 325 mg Fluticasone Propionate (Flonase Nasal [place]) 0 gm NASAL DAILY [facility] Last Admin: 04/08/19 10:09 Dose: 1 spr Gabapentin (Neurontin) 100 mg PO TID [facility] Last Admin: 04/09/19 09:16 Dose: 100 mg Glucagon (Glucagon) 1 mg IM PRN PRN PRN Reason: Hypoglycemia Hydralazine HCl (Apresoline) 10 mg SLOW IVP Q4H PRN PRN Reason: SBP > 170 or DBP > 100 Dextrose/Water (D5w) 1,000 mls @ 0 mls/hr IV .Q0M PRN PRN Reason: Hypoglycemia Dobutamine HCl/Dextrose (Dobutamine 500 Mg/250 Ml) 250 mls @ 3.691 mls/hr IVPB INF [facility]; Protocol Last Admin: 04/09/19 06:12 Dose: 250 mls Levothyroxine Sodium (Synthroid) 50 mcg PO SuSa@0600 [facility] Last Admin: 04/09/19 06:07 Dose: 50 mcg Levothyroxine Sodium (Synthroid) 100 mcg PO MoTuWeThFr@0600 [facility] Last Admin: 04/08/19 05:18 Dose: 100 mcg Loratadine (Claritin) 10 mg PO DAILY [facility] Last Admin: 04/09/19 09:15 Dose: 10 mg Magnesium Hydroxide (Milk Of Magnesium) 30 ml PO DAILYPRN PRN PRN Reason: Constipation Methylprednisolone Sodium Succinate (Solu-Medrol) 40 mg IVP 0000,0800,1600 [facility] Last Admin: 04/09/19 09:16 Dose: 40 mg Miscellaneous Medication (Pharmacy To Dose) 0 each PO 1700 [facility] Last Admin: 04/08/19 17:25 Dose: Not Given Mometasone Furoate/Formoterol Fumar (Dulera 200 Mcg/5 Mcg Inhaler) 2 puff INH BID-RT [facility] Last Admin: 04/08/19 18:49 Dose: Not Given Montelukast Sodium (Singulair) 10 mg PO HS [facility] Last Admin: 04/08/19 21:39 Dose: 10 mg Ondansetron HCl (Zofran Odt) 4 mg PO Q6H PRN PRN Reason: Nausea/Vomiting Last Admin: 03/28/19 23:51 Dose: 4 mg Ondansetron HCl (Zofran) 4 mg IVP Q6H PRN PRN Reason: Nausea Last Admin: 03/26/19 13:45 Dose: 4 mg Pantoprazole Sodium (Protonix) 40 mg PO 2100 [facility] Last Admin: 04/08/19 20:36 Dose: 40 mg Polyethylene Glycol (Miralax) 17 gm PO DAILY [facility] Last Admin: 04/09/19 09:15 Dose: Not Given Potassium Chloride (Klor-Con 10) 10 meq PO BID-WM [facility] Last Admin: 04/09/19 09:16 Dose: 10 meq Senna/Docusate Sodium (Senokot S) 2 tab PO BID [facility] Last Admin: 04/09/19 09:15 Dose: 2 tab Sodium Biphosphate/Sodium Phosphate (Fleet Enema) 133 ml CO ONE PRN PRN Reason: Constipation Stop: 04/09/19 12:50 Last Admin: 04/06/19 14:40 Dose: 133 ml Sodium Chloride (Flush - Normal Saline) 10 ml IVF PRN PRN PRN Reason: Saline Flush Last Admin: 04/01/19 20:15 Dose: 10 ml Tramadol HCl (Ultram) 50 mg PO Q6HR PRN PRN Reason: Pain Warfarin Sodium (Coumadin) 1 mg PO MoWeFr@1700 [facility] Last Admin: 04/08/19 17:26 Dose: 1 mg Warfarin Sodium (Coumadin) 2 mg PO Allison@1700 [facility] Last Admin: 04/07/19 17:14 Dose: 2 mg
[2019-04-09] MEDS: Mometasone/Formoterol 120 PUFF INHALER INH SCH ×2 (11:16→18:26)
[2019-04-09] MEDS: Digoxin 0.5 MG/2 ML AMP SLOW IVP SCH ×2 (16:17→18:13)
[2019-04-09] MEDS: Warfarin Sodium 2 MG TAB PO SCH (16:17)
[2019-04-09] MEDS: Mag-Al 1200 mg/1200 mg/30 ML UDCUP PO PRN (21:05)
[2019-04-09] MEDS: Montelukast Sodium 10 mg Tablet PO SCH (21:05)
[2019-04-09] MEDS: Atorvastatin Calcium 20 MG TAB PO SCH (21:05)
[2019-04-09] MEDS: Amiodarone 200 MG TAB PO SCH (21:06)
[2019-04-10] MEDS: Mag-Al 1200 mg/1200 mg/30 ML UDCUP PO PRN (05:42)
[2019-04-10] MEDS: Levothyroxine Sodium 50 MCG TAB PO SCH (05:42)
[2019-04-10 05:43] LABS: INR-International Normal Ratio 1.9; PTT 26.5 SEC (22.9-36.1); Prothrombin Time 21.3 SEC (12.0-14.7)
[2019-04-10] MEDS: Mometasone/Formoterol 120 PUFF INHALER INH SCH (08:09)
--- NOTE | 2019-04-10 09:11 | PDOC.PN ---
- Subjective Encounter Start Date: 04/10/19 Encounter Start Time: 07:10 Patient seen and examined. No new complaints. No overnight events today dobutamine drip is off, pt is overall doing well, her diarrhoea has been reduced - Objective MAR Reviewed: Yes Vital Signs & Weight: Vital Signs (12 hours) Temp Pulse Ox 04/10/19 07:33 98.4 F 04/10/19 05:30 97.4 F L 04/10/19 00:30 98.0 F 04/10/19 00:00 100 Weight Admit Weight 85 lb 8 oz Weight 102 lb 15.294 oz Most Recent Monitor Data Heart Rate from ECG 60 NIBP 114/45 NIBP BP-Mean 68 Respiration from ECG 23 SpO2 100 I&O: 04/09/19 04/10/19 04/11/19 06:59 06:59 06:59 Intake Total 1198 812.6 Balance 1198 812.6 Result Diagrams: 04/08/19 07:25 04/09/19 05:09 EKG Reviewed by me: Yes Phys Exam - Physical Examination Constitutional: NAD malnourished HEENT: PERRLA, moist MMs, sclera anicteric Neck: no JVD, supple Respiratory: no wheezing, no rales, no rhonchi Cardiovascular: RRR, no significant murmur, no rub Gastrointestinal: soft, non-tender, no distention, positive bowel sounds Musculoskeletal: no edema, pulses present Neurological: non-focal, moves all 4 limbs Lymphatic: no nodes Psychiatric: normal affect Skin: no rash, normal turgor Dx/Plan (1) Acute on chronic systolic ACC/AHA stage C congestive heart failure Code(s): I50.23 - ACUTE ON CHRONIC SYSTOLIC (CONGESTIVE) HEART FAILURE Status : Acute (2) Hyponatremia Code(s): E87.1 - HYPO-OSMOLALITY AND HYPONATREMIA Status: Acute Comment: due to SIADH, heart failure, and protein calory malnutrition (3) Intertrochanteric fracture Code(s): S72.143A - DISPLACED INTERTROCHANTERIC FRACTURE OF UNSP FEMUR, INIT Status: Acute Comment: s/p surgical repair (4) Atrial fibrillation Code(s): I48.91 - UNSPECIFIED ATRIAL FIBRILLATION Status: Chronic Qualifiers: Atrial fibrillation type: paroxysmal Qualified Code(s): I48.0 - Paroxysmal atrial fibrillation (5) COPD (chronic obstructive pulmonary disease) Status: Chronic (6) Celiac disease Code(s): K90.0 - CELIAC DISEASE Status: Chronic (7) GERD (gastroesophageal reflux disease) Code(s): K21.9 - GASTRO-ESOPHAGEAL REFLUX DISEASE WITHOUT ESOPHAGITIS Status: Chronic (8) Hypothyroidism Code(s): E03.9 - HYPOTHYROIDISM, UNSPECIFIED Status: Chronic (9) SLE (systemic lupus erythematosus) Code(s): M32.9 - SYSTEMIC LUPUS ERYTHEMATOSUS, UNSPECIFIED Status: Chronic (10) Severe mitral regurgitation Code(s): I34.0 - NONRHEUMATIC MITRAL (VALVE) INSUFFICIENCY Status: Chronic (11) Protein-calorie malnutrition, moderate Code(s): E44.0 - MODERATE PROTEIN-CALORIE MALNUTRITION Status: Chronic - Plan cont current plan of care, 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 Review of Systems - Review of Systems ENT: negative: Ear Pain, Ear Discharge, Nose Pain, Nose Discharge, Nose Congestion, Mouth Pain, Mouth Swelling, Throat Pain, Throat Swelling, Other Respiratory: negative: Cough, Dry, Shortness of Breath, Hemoptysis, SOB with Excertion, Pleuritic Pain, Sputum, Wheezing Cardiovascular: negative: chest pain, palpitations, orthopnea, paroxysmal nocturnal dyspnea, edema, light headedness, other Gastrointestinal: negative: Nausea, Vomiting, Abdominal Pain, Diarrhea, Constipation, Melena, Hematochezia, Other Genitourinary: negative: Dysuria, Frequency, Incontinence, Hematuria, Retention , Other Musculoskeletal: negative: Neck Pain, Shoulder Pain, Arm Pain, Back Pain, Hand Pain, Leg Pain, Foot Pain, Other - Medications/Allergies Allergies/Adverse Reactions: Allergies Allergy/AdvReac Type Severity Reaction Status Date / Time gluten Allergy Verified 03/26/19 04:01 ibuprofen AdvReac Verified 03/26/19 07:28 Medications: Current Medications Acetaminophen (Tylenol) 500 mg PO Q6H PRN PRN Reason: Mild Pain (1-3) Al Hydroxide/Mg Hydroxide (Maalox) 30 ml PO Q6H PRN PRN Reason: Heartburn or Indigestion Last Admin: 04/10/19 05:42 Dose: 30 ml Albuterol/Ipratropium (Duoneb) 3 ml NEB Q4HR PRN PRN Reason: SOB &/or Wheezing Albuterol/Ipratropium (Duoneb) 3 ml EZPAP [id number] PRN PRN Reason: SOB &/or Wheezing Amiodarone HCl (Cordarone) 200 mg PO 2100 [facility] Last Admin: 04/09/19 21:06 Dose: 200 mg Ascorbic Acid (Vitamin C) 500 mg PO BID-[facility] Last Admin: 04/09/19 16:17 Dose: 500 mg Atorvastatin Calcium (Lipitor) 20 mg PO HS [facility] Last Admin: 04/09/19 21:05 Dose: 20 mg Calcium Carbonate (Tums) 1,000 mg PO QIDPRN PRN PRN Reason: . Last Admin: 04/09/19 09:24 Dose: 1,000 mg Dextrose/Water (Dextrose 50%) 25 gm SLOW IVP PRN PRN PRN Reason: Hypoglycemia Digoxin (Lanoxin) 0.125 mg PO QAM [facility] Ferrous Sulfate (Feosol) 325 mg PO BID-[facility] Last Admin: 04/09/19 16:17 Dose: 325 mg Fluticasone Propionate (Flonase Nasal [place]) 0 gm NASAL DAILY [facility] Last Admin: 04/09/19 09:18 Dose: 2 spr Gabapentin (Neurontin) 100 mg PO TID [facility] Last Admin: 04/09/19 21:05 Dose: 100 mg Glucagon (Glucagon) 1 mg IM PRN PRN PRN Reason: Hypoglycemia Hydralazine HCl (Apresoline) 10 mg SLOW IVP Q4H PRN PRN Reason: SBP > 170 or DBP > 100 Dextrose/Water (D5w) 1,000 mls @ 0 mls/hr IV .Q0M PRN PRN Reason: Hypoglycemia Levothyroxine Sodium (Synthroid) 50 mcg PO SuSa@0600 [facility] Last Admin: 04/10/19 05:42 Dose: 50 mcg Levothyroxine Sodium (Synthroid) 100 mcg PO MoTuWeThFr@0600 [facility] Last Admin: 04/08/19 05:18 Dose: 100 mcg Loratadine (Claritin) 10 mg PO DAILY [facility] Last Admin: 04/09/19 09:15 Dose: 10 mg Magnesium Hydroxide (Milk Of Magnesium) 30 ml PO DAILYPRN PRN PRN Reason: Constipation Methylprednisolone Sodium Succinate (Solu-Medrol) 20 mg IVP DAILY [facility] Miscellaneous Medication (Pharmacy To Dose) 0 each PO 1700 [facility] Last Admin: 04/09/19 18:11 Dose: Not Given Montelukast Sodium (Singulair) 10 mg PO HS [facility] Last Admin: 04/09/19 21:05 Dose: 10 mg Ondansetron HCl (Zofran Odt) 4 mg PO Q6H PRN PRN Reason: Nausea/Vomiting Last Admin: 03/28/19 23:51 Dose: 4 mg Ondansetron HCl (Zofran) 4 mg IVP Q6H PRN PRN Reason: Nausea Last Admin: 03/26/19 13:45 Dose: 4 mg Pantoprazole Sodium (Protonix) 40 mg PO 2100 [facility] Last Admin: 04/09/19 21:05 Dose: 40 mg Potassium Chloride (Klor-Con 10) 10 meq PO BID-[facility] Last Admin: 04/09/19 16:17 Dose: 10 meq Sodium Chloride (Flush - Normal Saline) 10 ml IVF PRN PRN PRN Reason: Saline Flush Last Admin: 04/01/19 20:15 Dose: 10 ml Tramadol HCl (Ultram) 50 mg PO Q6HR PRN PRN Reason: Pain Warfarin Sodium (Coumadin) 1 mg PO [email or web address] [facility] Last Admin: 04/08/19 17:26 Dose: 1 mg Warfarin Sodium (Coumadin) 2 mg PO [email or web address] [facility] Last Admin: 04/09/19 16:17 Dose: 2 mg
[2019-04-10] MEDS: Ferrous Sulfate 325 MG TAB PO SCH ×2 (09:53→16:17)
[2019-04-10] MEDS: Ascorbic Acid 500 mg Chewable Tablet PO SCH ×2 (09:53→16:18)
[2019-04-10] MEDS: Potassium Chloride 10 MEQ TAB PO SCH ×2 (09:53→16:17)
[2019-04-10] MEDS: Loratadine 10 MG TAB PO SCH (09:54)
[2019-04-10] MEDS: Fluticasone Propionate Nasal Spray 16 gm Bottle NASAL SCH (09:54)
[2019-04-10] MEDS: Gabapentin 100 MG CAP PO SCH ×3 (09:54→20:24)
[2019-04-10] MEDS: Digoxin 0.125 MG TAB PO SCH (09:54)
[2019-04-10] MEDS: methylPREDNISolone Sod Succ 40 MG VIAL IVP SCH (09:55)
[2019-04-10] MEDS: Acetaminophen 500 MG TAB PO PRN (13:52)
[2019-04-10] MEDS: Warfarin Sodium 2 MG TAB PO SCH (16:18)
[2019-04-10] MEDS: Amiodarone 200 MG TAB PO SCH (20:24)
[2019-04-10] MEDS: Montelukast Sodium 10 mg Tablet PO SCH (20:24)
[2019-04-10] MEDS: Acetaminophen/Codeine 30-300mg Tablet PO PRN (20:24)
[2019-04-10] MEDS: Atorvastatin Calcium 20 MG TAB PO SCH (20:24)
[2019-04-11] MEDS: Levothyroxine Sodium 100 MCG TAB PO SCH (05:01)
[2019-04-11 05:06] LABS: PTT 26.9 SEC (22.9-36.1); Prothrombin Time 22.9 SEC (12.0-14.7)
[2019-04-11] MEDS: Acetaminophen 500 MG TAB PO PRN (08:38)
[2019-04-11] MEDS: Ferrous Sulfate 325 MG TAB PO SCH ×2 (08:39→16:44)
[2019-04-11] MEDS: Ascorbic Acid 500 mg Chewable Tablet PO SCH ×2 (08:39→16:45)
[2019-04-11] MEDS: Loratadine 10 MG TAB PO SCH (08:40)
[2019-04-11] MEDS: Potassium Chloride 10 MEQ TAB PO SCH ×2 (08:40→16:44)
[2019-04-11] MEDS: methylPREDNISolone Sod Succ 40 MG VIAL IVP SCH (08:40)
[2019-04-11] MEDS: Gabapentin 100 MG CAP PO SCH ×3 (08:40→20:06)
[2019-04-11] MEDS: Digoxin 0.125 MG TAB PO SCH (08:40)
[2019-04-11] MEDS: Fluticasone Propionate Nasal Spray 16 gm Bottle NASAL SCH (08:40)
--- NOTE | 2019-04-11 11:01 | PDOC.PN ---
- Subjective Encounter Start Date: 04/11/19 Encounter Start Time: 07:10 Patient seen and examined. pt is off dobutamine drip, no dyspnea, no chest pain No overnight events - Objective MAR Reviewed: Yes Vital Signs & Weight: Vital Signs (12 hours) Temp Pulse 04/11/19 10:39 99.0 F 04/11/19 08:40 67 04/11/19 07:28 98.7 F 04/11/19 04:31 97.2 F L 04/11/19 00:00 98.1 F Weight Admit Weight 85 lb 8 oz Weight 99 lb 12.8 oz Most Recent Monitor Data Heart Rate from ECG 70 NIBP 112/51 NIBP BP-Mean 71 Respiration from ECG 21 SpO2 96 I&O: 04/10/19 04/11/19 04/12/19 06:59 06:59 06:59 Intake Total 812.6 1280 Balance 812.6 1280 Result Diagrams: 04/08/19 07:25 04/09/19 05:09 EKG Reviewed by me: Yes Phys Exam - Physical Examination Constitutional: NAD malnourished HEENT: PERRLA, moist MMs, sclera anicteric Neck: no JVD, supple Respiratory: no wheezing, no rales, no rhonchi Cardiovascular: no significant murmur, no rub, irregular Gastrointestinal: soft, non-tender, no distention, positive bowel sounds Musculoskeletal: no edema, pulses present Neurological: non-focal, normal sensation Lymphatic: no nodes Psychiatric: normal affect Skin: no rash, normal turgor Dx/Plan (1) Acute on chronic systolic ACC/AHA stage C congestive heart failure Code(s): I50.23 - ACUTE ON CHRONIC SYSTOLIC (CONGESTIVE) HEART FAILURE Status : Acute (2) Hyponatremia Code(s): E87.1 - HYPO-OSMOLALITY AND HYPONATREMIA Status: Acute Comment: due to SIADH, heart failure, and protein calory malnutrition (3) Intertrochanteric fracture Code(s): S72.143A - DISPLACED INTERTROCHANTERIC FRACTURE OF UNSP FEMUR, INIT Status: Acute Comment: s/p surgical repair (4) Atrial fibrillation Code(s): I48.91 - UNSPECIFIED ATRIAL FIBRILLATION Status: Chronic Qualifiers: Atrial fibrillation type: paroxysmal Qualified Code(s): I48.0 - Paroxysmal atrial fibrillation (5) COPD (chronic obstructive pulmonary disease) Status: Chronic (6) Celiac disease Code(s): K90.0 - CELIAC DISEASE Status: Chronic (7) GERD (gastroesophageal reflux disease) Code(s): K21.9 - GASTRO-ESOPHAGEAL REFLUX DISEASE WITHOUT ESOPHAGITIS Status: Chronic (8) Hypothyroidism Code(s): E03.9 - HYPOTHYROIDISM, UNSPECIFIED Status: Chronic (9) SLE (systemic lupus erythematosus) Code(s): M32.9 - SYSTEMIC LUPUS ERYTHEMATOSUS, UNSPECIFIED Status: Chronic (10) Severe mitral regurgitation Code(s): I34.0 - NONRHEUMATIC MITRAL (VALVE) INSUFFICIENCY Status: Chronic (11) Protein-calorie malnutrition, moderate Code(s): E44.0 - MODERATE PROTEIN-CALORIE MALNUTRITION Status: Chronic - Plan cont current plan of care, PT/OT, social media senior associate * medication reviewed as below * symptomatic treatment * overall stable and seems baseline * when all consultants are OK, then consider discharge. Review of Systems - Review of Systems ENT: negative: Ear Pain, Ear Discharge, Nose Pain, Nose Discharge, Nose Congestion, Mouth Pain, Mouth Swelling, Throat Pain, Throat Swelling, Other Respiratory: negative: Cough, Dry, Shortness of Breath, Hemoptysis, SOB with Excertion, Pleuritic Pain, Sputum, Wheezing Cardiovascular: negative: chest pain, palpitations, orthopnea, paroxysmal nocturnal dyspnea, edema, light headedness, other Gastrointestinal: negative: Nausea, Vomiting, Abdominal Pain, Diarrhea, Constipation, Melena, Hematochezia, Other Genitourinary: negative: Dysuria, Frequency, Incontinence, Hematuria, Retention , Other Musculoskeletal: negative: Neck Pain, Shoulder Pain, Arm Pain, Back Pain, Hand Pain, Leg Pain, Foot Pain, Other - Medications/Allergies Allergies/Adverse Reactions: Allergies Allergy/AdvReac Type Severity Reaction Status Date / Time gluten Allergy Verified 03/26/19 04:01 ibuprofen AdvReac Verified 03/26/19 07:28 Medications: Current Medications Acetaminophen (Tylenol) 500 mg PO Q6H PRN PRN Reason: Mild Pain (1-3) Last Admin: 04/11/19 08:38 Dose: 500 mg Acetaminophen/Codeine Phosphate (Tylenol #3) 1 tab PO Q6H PRN PRN Reason: Pain Last Admin: 04/10/19 20:24 Dose: 1 tab Al Hydroxide/Mg Hydroxide (Maalox) 30 ml PO Q6H PRN PRN Reason: Heartburn or Indigestion Last Admin: 04/10/19 05:42 Dose: 30 ml Albuterol/Ipratropium (Duoneb) 3 ml NEB Q4HR PRN PRN Reason: SOB &/or Wheezing Albuterol/Ipratropium (Duoneb) 3 ml EZPAP J1UI-PT PRN PRN Reason: SOB &/or Wheezing Amiodarone HCl (Cordarone) 200 mg PO 2100 [facility] Last Admin: 04/10/19 20:24 Dose: 200 mg Ascorbic Acid (Vitamin C) 500 mg PO BID-[facility] Last Admin: 04/11/19 08:39 Dose: 500 mg Atorvastatin Calcium (Lipitor) 20 mg PO HS [facility] Last Admin: 04/10/19 20:24 Dose: 20 mg Calcium Carbonate (Tums) 1,000 mg PO QIDPRN PRN PRN Reason: . Last Admin: 04/09/19 09:24 Dose: 1,000 mg Dextrose/Water (Dextrose 50%) 25 gm SLOW IVP PRN PRN PRN Reason: Hypoglycemia Digoxin (Lanoxin) 0.125 mg PO QAM [facility] Last Admin: 04/11/19 08:40 Dose: 0.125 mg Ferrous Sulfate (Feosol) 325 mg PO BID-[facility] Last Admin: 04/11/19 08:39 Dose: 325 mg Fluticasone Propionate (Flonase Nasal [place]) 0 gm NASAL DAILY [facility] Last Admin: 04/11/19 08:40 Dose: 1 spr Gabapentin (Neurontin) 100 mg PO TID [facility] Last Admin: 04/11/19 08:40 Dose: 100 mg Glucagon (Glucagon) 1 mg IM PRN PRN PRN Reason: Hypoglycemia Hydralazine HCl (Apresoline) 10 mg SLOW IVP Q4H PRN PRN Reason: SBP > 170 or DBP > 100 Dextrose/Water (D5w) 1,000 mls @ 0 mls/hr IV .Q0M PRN PRN Reason: Hypoglycemia Levothyroxine Sodium (Synthroid) 50 mcg PO SuSa@0600 [facility] Last Admin: 04/10/19 05:42 Dose: 50 mcg Levothyroxine Sodium (Synthroid) 100 mcg PO MoTuWeThFr@0600 [facility] Last Admin: 04/11/19 05:01 Dose: 100 mcg Loratadine (Claritin) 10 mg PO DAILY [facility] Last Admin: 04/11/19 08:40 Dose: 10 mg Magnesium Hydroxide (Milk Of Magnesium) 30 ml PO DAILYPRN PRN PRN Reason: Constipation Methylprednisolone Sodium Succinate (Solu-Medrol) 20 mg IVP DAILY [facility] Last Admin: 04/11/19 08:40 Dose: 20 mg Miscellaneous Medication (Pharmacy To Dose) 0 each PO 1700 [facility] Last Admin: 04/10/19 20:18 Dose: Not Given Montelukast Sodium (Singulair) 10 mg PO HS [facility] Last Admin: 04/10/19 20:24 Dose: 10 mg Ondansetron HCl (Zofran Odt) 4 mg PO Q6H PRN PRN Reason: Nausea/Vomiting Last Admin: 03/28/19 23:51 Dose: 4 mg Ondansetron HCl (Zofran) 4 mg IVP Q6H PRN PRN Reason: Nausea Last Admin: 03/26/19 13:45 Dose: 4 mg Pantoprazole Sodium (Protonix) 40 mg PO 2100 [facility] Last Admin: 04/10/19 20:24 Dose: 40 mg Potassium Chloride (Klor-Con 10) 10 meq PO BID-[facility] Last Admin: 04/11/19 08:40 Dose: 10 meq Sodium Chloride (Flush - Normal Saline) 10 ml IVF PRN PRN PRN Reason: Saline Flush Last Admin: 04/01/19 20:15 Dose: 10 ml Tramadol HCl (Ultram) 50 mg PO Q6HR PRN PRN Reason: Pain Warfarin Sodium (Coumadin) 1 mg PO MoWeFr@1700 [facility] Last Admin: 04/08/19 17:26 Dose: 1 mg Warfarin Sodium (Coumadin) 2 mg PO SuTuThSa@1700 [facility] Last Admin: 04/10/19 16:18 Dose: 2 mg
[2019-04-11] MEDS: Acetaminophen/Codeine 30-300mg Tablet PO PRN ×2 (12:25→20:07)
--- NOTE | 2019-04-11 12:59 | PDOC.PALCO ---
Palliative Care Consult - Consult Details Requesting Physician: Dr Saunders Reason for Consult: goals of care Family Members Present: Daughter and patient sister - Pertinent HPI Patient was taken to the ER post mechanical fall. Admitted, surgery and was transferred 3 days post surgery secondary to hypoxic event. Consult from Dr Saunders for goals of care. - Pertinent PMH CAD, Asthma, COPD, Osteoporosis, Lupus, MA, Atrial Fib, CHF - Social History Smoking Status: Former smoker Drug Use History: none Living Situation: with family/parents - Medications MAR Reviewed: Yes - Allergies Allergies/Adverse Reactions: Allergies Allergy/AdvReac Type Severity Reaction Status Date / Time gluten Allergy Verified 03/26/19 04:01 ibuprofen AdvReac Verified 03/26/19 07:28 - Subjective Patient with O2, push of speech. States she is tired, and overwhelmed. Family at bedside. - Objective Vital Signs: Vital Signs - Most Recent Temp Pulse Resp BP Pulse Ox 99.0 F 67 17 110/48 L 95 04/11/19 10:39 04/11/19 08:40 04/08/19 08:03 04/10/19 13:38 04/10/19 20:00 Palliative Performance Scale: 40 - Physical Exam Constitutional: mild distress HEENT: PERRLA, moist MMs Deviation from normal: labored respirations Gastrointestinal: soft Deviation from normal: anxious - Problem List (1) Palliative care encounter Code(s): Z51.5 - ENCOUNTER FOR PALLIATIVE CARE Current Visit: Yes Status: Acute Comments: Patient anxious. Family at bedside. Difficulty comprehending disease trajectory related to cardiac status. - Plan/Recommendations Plan: Jacquelin Cedeno RN with Palliative Care visited at length with patient and family. Further conversation myself. * Cardiology to visit with patient and family in relation to DNR status * Tiffany Cedeno arranged nutrition consult * Follow up after cardiology to revisit goals of care. [45] minutes spent on this encounter with >50% of the time in counseling and coordination of care. Thank you for this very appropriate consult. Jacquelin Woodard RN and I will continue to follow and update on plan.
[2019-04-11 15:31] VITALS: BMI 16.1
[2019-04-11 15:52] VITALS: BP 109/52
[2019-04-11] MEDS: Warfarin Sodium 1 MG TAB PO SCH (16:45)
--- NOTE | 2019-04-11 18:09 | PRG ---
DATE OF SERVICE: 04/11/2019 SUBJECTIVE: Ms. Peraza is doing very well. I have not seen her over the last 4 days due to my absence. She is off high-flow oxygen. She is also off dopamine and dobutamine. OBJECTIVE: GENERAL: Patient is a pleasant female, who is in no acute distress. She does appear older than her stated age and thin. VITAL SIGNS: Blood pressure 91/45, pulse 60, temperature afebrile. NEUROLOGIC: The patient is alert and oriented x3 with no focal neurologic deficits. HEENT: Sclerae without icterus. Mouth has moist mucous membranes with normal pallor. NECK: No JVD. Carotid upstroke brisk. No bruits bilaterally. LUNGS: Clear to auscultation with unlabored respirations. BACK: No scoliosis or kyphosis. CARDIAC: Regular rate and rhythm with normal S1 and S2. No S3 or S4 noted. No significant rubs, murmurs, thrills, or gallops noted throughout the precordium. PMI is not displaced. There is no parasternal heave. ABDOMEN: Soft, nontender, nondistended. No peritoneal signs present. No hepatosplenomegaly. No abnormal striae. EXTREMITIES: 2+ femoral and 2+ dorsalis pedis pulses. No cyanosis, clubbing, or edema. SKIN: No gross abnormalities. PERTINENT LABORATORY DATA: Hemoglobin 11.2, white blood cell count 22,000. Creatinine 0.7. IMPRESSION: 1. Ischemic cardiomyopathy. 2. Coronary artery disease. 3. Status post bypass surgery. 4. Previous history of ventricular fibrillation. 5. Recent hip fracture. RECOMMENDATIONS: I had a long discussion with Ms. Peraza, Ms. Peraza's sister and her daughter about her prognosis. Given her comorbidities, she is certainly very tenuous. The family understands. I discussed DNR status with Ms. Peraza and her family. They would like to discuss it with her in private. Certainly seems reasonable from my standpoint. From a CV standpoint, we will avoid SAM inhibitor therapy, ARB, and beta-jocelynn therapy due to hypotension. Continue atorvastatin and aspirin. We will also recommend to continue Coumadin to an INR 2 to 3. The patient will also need placement. Job ID: [id number] [facility]
[2019-04-11] MEDS: Montelukast Sodium 10 mg Tablet PO SCH (20:06)
[2019-04-11] MEDS: Amiodarone 200 MG TAB PO SCH (20:07)
[2019-04-11] MEDS: Atorvastatin Calcium 20 MG TAB PO SCH (20:07)
[2019-04-12 05:03] LABS: INR-International Normal Ratio 2.1; PTT 34.9 SEC (22.9-36.1)
[2019-04-12] MEDS: Levothyroxine Sodium 100 MCG TAB PO SCH (05:49)
[2019-04-12] MEDS: Acetaminophen/Codeine 30-300mg Tablet PO PRN ×2 (05:49→12:25)
--- NOTE | 2019-04-12 08:06 | PDOC.CTH ---
Cardiology Progress Note - Subjective Resting. NO complaints. BP still marginal - Objective Vital Signs Temp 04/12/19 07:39 97.0 F L 04/12/19 04:29 98.6 F 04/11/19 23:57 99.4 F Admit Weight 85 lb 8 oz Weight 103 lb 3 oz 04/11/19 04/12/19 04/13/19 06:59 06:59 06:59 Intake Total 1280 1390 Balance 1280 1390 - Physical Examination General/Neuro: NAD Neck: no JVD present Lungs: CTA, unlabored respirations Heart: PMI normal, RRR Abdomen: NT/ND, soft Extremities: + femoral B - Labs Result Diagrams: 04/08/19 07:25 04/09/19 05:09 - Assessment/Plan Severe ischemic CM Recent hip fracture s/p CABG CAD hypotension Pt stable with BP in the upper 90's to 100's Hold BB, ACEI, ARB secondary to hypotenison Conservative measures Will need placement Pt to OR tomorrow for I and D of the wound Concern for pt being placed back on Dop/
[2019-04-12] MEDS: methylPREDNISolone Sod Succ 40 MG VIAL IVP SCH (08:44)
[2019-04-12] MEDS: Fluticasone Propionate Nasal Spray 16 gm Bottle NASAL SCH (08:44)
[2019-04-12] MEDS: Digoxin 0.125 MG TAB PO SCH (08:45)
[2019-04-12] MEDS: Potassium Chloride 10 MEQ TAB PO SCH ×2 (08:45→17:11)
[2019-04-12] MEDS: Ascorbic Acid 500 mg Chewable Tablet PO SCH ×2 (08:45→17:11)
[2019-04-12] MEDS: Ferrous Sulfate 325 MG TAB PO SCH ×2 (08:46→17:11)
[2019-04-12] MEDS: Loratadine 10 MG TAB PO SCH (08:46)
[2019-04-12] MEDS: Gabapentin 100 MG CAP PO SCH ×3 (08:46→21:25)
--- NOTE | 2019-04-12 10:32 | PRG ---
DATE OF SERVICE: 04/12/2019 SUBJECTIVE: The patient is still in the IMCU. She has been weaned off nasal cannula and off pressors. She is on room air and doing well. Case Management is working on placement for her. She is still very weak and working very slowly with physical therapy. She has no complaints related to the left hip; however, this wound has continued to drain serous drainage since surgery initially following diuresis and secondary following this the fact that she has not been out of bed much. Dressing was last changed yesterday per nursing staff today. She is status post left hip dynamic hip screw for left intertrochanteric femur fracture, postop day #16. OBJECTIVE: VITAL SIGNS: Temperature 97.0, pulse of 64, blood pressure 88/47, and respiratory rate is 20. GENERAL: The patient is sitting up in bed. She is awake. She is breathing room air. She is in no apparent distress. She is pleasant and cooperative and converses without any shortness of breath. MUSCULOSKELETAL: Evaluation of her left hip wound shows Medipore tape overlying an ABD pad. This is completely saturated when removed. This was placed 24 hours ago. On evaluation of the wound, nilson are still present. Wound appears well closed. There is some surrounding erythema around the edges of the nilson; however, no erythema surrounding the wound itself. I am unable to express any serous drainage from the wound. This area is nontender to palpation. Distal neurovascular status is intact. ASSESSMENT: The patient is over 2 weeks postop from a left hip fracture with dynamic hip screw placement. She has had chronic serous drainage that we hope would stop once her diuresis was completed; however, it appears that this has continued. Due to her medical instability, we will remove nilson, and place a wound vac. As soon as this is completed, she can go to [facility]. We will follow her in the fracture clinic in 2-3 weeks. Job ID: [id number] [facility]
--- NOTE | 2019-04-12 14:48 | PDOC.PN ---
- Subjective Encounter Start Date: 04/12/19 Encounter Start Time: 10:15 Patient seen and examined. No new complaints. No overnight events - Objective MAR Reviewed: Yes Vital Signs & Weight: Vital Signs (12 hours) Temp Pulse Pulse Ox 04/12/19 11:08 97.2 F L 04/12/19 08:45 64 04/12/19 08:00 91 L 04/12/19 07:39 97.0 F L 04/12/19 04:29 98.6 F Weight Admit Weight 85 lb 8 oz Weight 103 lb 3 oz Most Recent Monitor Data Heart Rate from ECG 65 NIBP 103/48 NIBP BP-Mean 66 Respiration from ECG 24 SpO2 93 I&O: 04/11/19 04/12/19 04/13/19 06:59 06:59 06:59 Intake Total 1280 1390 Balance 1280 1390 Result Diagrams: 04/13/19 05:10 04/13/19 05:10 EKG Reviewed by me: Yes Phys Exam - Physical Examination Constitutional: NAD HEENT: PERRLA, moist MMs, sclera anicteric Neck: no JVD, supple Respiratory: no wheezing, no rales, no rhonchi Cardiovascular: RRR, no significant murmur, no rub Gastrointestinal: soft, non-tender, no distention Musculoskeletal: no edema, pulses present Neurological: non-focal, normal sensation Psychiatric: normal affect Skin: no rash, normal turgor Dx/Plan (1) Acute on chronic systolic ACC/AHA stage C congestive heart failure Code(s): I50.23 - ACUTE ON CHRONIC SYSTOLIC (CONGESTIVE) HEART FAILURE Status : Acute (2) Hyponatremia Code(s): E87.1 - HYPO-OSMOLALITY AND HYPONATREMIA Status: Acute Comment: due to SIADH, heart failure, and protein calory malnutrition (3) Intertrochanteric fracture Code(s): S72.143A - DISPLACED INTERTROCHANTERIC FRACTURE OF UNSP FEMUR, INIT Status: Acute Comment: s/p surgical repair (4) Atrial fibrillation Code(s): I48.91 - UNSPECIFIED ATRIAL FIBRILLATION Status: Chronic Qualifiers: Atrial fibrillation type: paroxysmal Qualified Code(s): I48.0 - Paroxysmal atrial fibrillation (5) COPD (chronic obstructive pulmonary disease) Status: Chronic (6) Celiac disease Code(s): K90.0 - CELIAC DISEASE Status: Chronic (7) GERD (gastroesophageal reflux disease) Code(s): K21.9 - GASTRO-ESOPHAGEAL REFLUX DISEASE WITHOUT ESOPHAGITIS Status: Chronic (8) Hypothyroidism Code(s): E03.9 - HYPOTHYROIDISM, UNSPECIFIED Status: Chronic (9) SLE (systemic lupus erythematosus) Code(s): M32.9 - SYSTEMIC LUPUS ERYTHEMATOSUS, UNSPECIFIED Status: Chronic (10) Severe mitral regurgitation Code(s): I34.0 - NONRHEUMATIC MITRAL (VALVE) INSUFFICIENCY Status: Chronic (11) Protein-calorie malnutrition, moderate Code(s): E44.0 - MODERATE PROTEIN-CALORIE MALNUTRITION Status: Chronic - Plan cont current plan of care, PT/OT, drug abuse social worker * medication reviewed as below * symptomatic treatment * pt is euvolemic, and now baseline * await placement. Review of Systems - Review of Systems ENT: negative: Ear Pain, Ear Discharge, Nose Pain, Nose Discharge, Nose Congestion, Mouth Pain, Mouth Swelling, Throat Pain, Throat Swelling, Other Respiratory: negative: Cough, Dry, Shortness of Breath, Hemoptysis, SOB with Excertion, Pleuritic Pain, Sputum, Wheezing Cardiovascular: negative: chest pain, palpitations, orthopnea, paroxysmal nocturnal dyspnea, edema, light headedness, other Gastrointestinal: negative: Nausea, Vomiting, Abdominal Pain, Diarrhea, Constipation, Melena, Hematochezia, Other Genitourinary: negative: Dysuria, Frequency, Incontinence, Hematuria, Retention , Other Musculoskeletal: negative: Neck Pain, Shoulder Pain, Arm Pain, Back Pain, Hand Pain, Leg Pain, Foot Pain, Other - Medications/Allergies Allergies/Adverse Reactions: Allergies Allergy/AdvReac Type Severity Reaction Status Date / Time gluten Allergy Verified 03/26/19 04:01 ibuprofen AdvReac Verified 03/26/19 07:28 Medications: Current Medications Acetaminophen (Tylenol) 500 mg PO Q6H PRN PRN Reason: Mild Pain (1-3) Last Admin: 04/11/19 08:38 Dose: 500 mg Acetaminophen/Codeine Phosphate (Tylenol #3) 1 tab PO Q6H PRN PRN Reason: Pain Last Admin: 04/12/19 12:25 Dose: 1 tab Al Hydroxide/Mg Hydroxide (Maalox) 30 ml PO Q6H PRN PRN Reason: Heartburn or Indigestion Last Admin: 04/10/19 05:42 Dose: 30 ml Albuterol/Ipratropium (Duoneb) 3 ml NEB Q4HR PRN PRN Reason: SOB &/or Wheezing Albuterol/Ipratropium (Duoneb) 3 ml EZPAP G0IN-UN PRN PRN Reason: SOB &/or Wheezing Amiodarone HCl (Cordarone) 200 mg PO 2100 [facility] Last Admin: 04/11/19 20:07 Dose: 200 mg Ascorbic Acid (Vitamin C) 500 mg PO BID-[facility] Last Admin: 04/12/19 08:45 Dose: 500 mg Atorvastatin Calcium (Lipitor) 20 mg PO HS [facility] Last Admin: 04/11/19 20:07 Dose: 20 mg Calcium Carbonate (Tums) 1,000 mg PO QIDPRN PRN PRN Reason: . Last Admin: 04/09/19 09:24 Dose: 1,000 mg Dextrose/Water (Dextrose 50%) 25 gm SLOW IVP PRN PRN PRN Reason: Hypoglycemia Digoxin (Lanoxin) 0.125 mg PO QAM [facility] Last Admin: 04/12/19 08:45 Dose: 0.125 mg Ferrous Sulfate (Feosol) 325 mg PO BID-[facility] Last Admin: 04/12/19 08:46 Dose: 325 mg Fluticasone Propionate (Flonase Nasal [place]) 0 gm NASAL DAILY [facility] Last Admin: 04/12/19 08:44 Dose: 1 spr Gabapentin (Neurontin) 100 mg PO TID [facility] Last Admin: 04/12/19 08:46 Dose: 100 mg Glucagon (Glucagon) 1 mg IM PRN PRN PRN Reason: Hypoglycemia Hydralazine HCl (Apresoline) 10 mg SLOW IVP Q4H PRN PRN Reason: SBP > 170 or DBP > 100 Dextrose/Water (D5w) 1,000 mls @ 0 mls/hr IV .Q0M PRN PRN Reason: Hypoglycemia Levothyroxine Sodium (Synthroid) 50 mcg PO SuSa@0600 [facility] Last Admin: 04/10/19 05:42 Dose: 50 mcg Levothyroxine Sodium (Synthroid) 100 mcg PO MoTuWeThFr@0600 [facility] Last Admin: 04/12/19 05:49 Dose: 100 mcg Loratadine (Claritin) 10 mg PO DAILY [facility] Last Admin: 04/12/19 08:46 Dose: 10 mg Magnesium Hydroxide (Milk Of Magnesium) 30 ml PO DAILYPRN PRN PRN Reason: Constipation Methylprednisolone Sodium Succinate (Solu-Medrol) 20 mg IVP DAILY [facility] Last Admin: 04/12/19 08:44 Dose: 20 mg Miscellaneous Medication (Pharmacy To Dose) 0 each PO 1700 [facility] Last Admin: 04/11/19 16:46 Dose: Not Given Montelukast Sodium (Singulair) 10 mg PO HS [facility] Last Admin: 04/11/19 20:06 Dose: 10 mg Ondansetron HCl (Zofran Odt) 4 mg PO Q6H PRN PRN Reason: Nausea/Vomiting Last Admin: 03/28/19 23:51 Dose: 4 mg Ondansetron HCl (Zofran) 4 mg IVP Q6H PRN PRN Reason: Nausea Last Admin: 03/26/19 13:45 Dose: 4 mg Pantoprazole Sodium (Protonix) 40 mg PO 2100 [facility] Last Admin: 04/11/19 20:06 Dose: 40 mg Potassium Chloride (Klor-Con 10) 10 meq PO BID-[facility] Last Admin: 04/12/19 08:45 Dose: 10 meq Sodium Chloride (Flush - Normal Saline) 10 ml IVF PRN PRN PRN Reason: Saline Flush Last Admin: 04/12/19 08:46 Dose: 10 ml Tramadol HCl (Ultram) 50 mg PO Q6HR PRN PRN Reason: Pain Warfarin Sodium (Coumadin) 1 mg PO MoWeFr@1700 [facility] Last Admin: 04/11/19 16:45 Dose: 1 mg Warfarin Sodium (Coumadin) 2 mg PO SuTuThSa@1700 [facility] Last Admin: 04/10/19 16:18 Dose: 2 mg
[2019-04-12] MEDS: Warfarin Sodium 2 MG TAB PO SCH (17:11)
[2019-04-12] MEDS: traMADol HCl 50 MG TAB PO PRN (21:24)
[2019-04-12] MEDS: Montelukast Sodium 10 mg Tablet PO SCH (21:25)
[2019-04-12] MEDS: Amiodarone 200 MG TAB PO SCH (21:25)
[2019-04-12] MEDS: Atorvastatin Calcium 20 MG TAB PO SCH (21:25)
[2019-04-13] MEDS: Levothyroxine Sodium 100 MCG TAB PO SCH (05:22)
[2019-04-13 05:34] LABS: INR-International Normal Ratio 2.3; PTT 35.4 SEC (22.9-36.1); Prothrombin Time 25.3 SEC (12.0-14.7)
[2019-04-13 05:42] LABS: Anion Gap 18 mmol/L (10-20); BUN (Urea Nitrogen) 106 mg/dL (9.8-20.1); Calc. Creatinine Clearance 22 mL/min (70-130); Calcium 8.5 mg/dL (7.8-10.44); Carbon Dioxide 34 mmol/L (23-31); Chloride 81 mmol/L (98-107); Estimated GFR-MDRD 28; Glucose 155 mg/dL (80-115); Potassium 5.1 mmol/L (3.5-5.1); Sodium 128 mmol/L (136-145)
[2019-04-13 05:57] LABS: Band 24 % (5-11); Hemoglobin 12.2 g/dL (12.0-16.0); Lymphocytes 2 % (21-51); MDiff Complete? YES; Mean Corpuscular HGB CONC 31.5 g/dL (32.0-36.0); Mean Corpuscular Hemoglobin 28.9 pg (27.0-31.0); Mean Corpuscular Volume 91.7 fL (78.0-98.0); Monocytes 4 % (0-10); Neutrophil 70 % (42-75); Platelet Count 128 thou/uL (130-400); RBC Distribution Width 15.4 % (11.5-14.5); Red Blood Cell (RBC) Count 4.24 mill/uL (4.20-5.40); White Blood Cell (WBC) Count 30.4 thou/uL (4.8-10.8)
[2019-04-13] MEDS: Ascorbic Acid 500 mg Chewable Tablet PO SCH ×2 (09:14→18:36)
[2019-04-13] MEDS: Ferrous Sulfate 325 MG TAB PO SCH ×2 (09:14→18:36)
[2019-04-13] MEDS: Digoxin 0.125 MG TAB PO SCH (09:15)
[2019-04-13] MEDS: Potassium Chloride 10 MEQ TAB PO SCH ×2 (09:15→18:36)
[2019-04-13] MEDS: Loratadine 10 MG TAB PO SCH (09:15)
[2019-04-13] MEDS: traMADol HCl 50 MG TAB PO PRN (09:15)
[2019-04-13] MEDS: Fluticasone Propionate Nasal Spray 16 gm Bottle NASAL SCH (09:15)
[2019-04-13] MEDS: Gabapentin 100 MG CAP PO SCH ×2 (09:15→14:54)
--- NOTE | 2019-04-13 10:22 | PRG ---
DATE OF SERVICE: 04/13/2019 SUBJECTIVE: I was informed this morning by a nursing staff, the patient is stating that she no longer wants to live. They have called family in. She is refusing any sort of care. They have also consulted palliative care. Currently at bedside. There is family in the room. The patient is stating over and over "I just want to ." OBJECTIVE: VITAL SIGNS: Show temperature 98.7, pulse rate 64, respiratory rate 17, and blood pressure 109/52. GENERAL: The patient is sitting up in bed. She is in no apparent distress. She is on nasal cannula oxygen. EXTREMITIES: Evaluation of the left hip wound shows a gauze dressing intact. It has been present since yesterday. She is able to wiggle toes in both legs. Dressing is dry. LABORATORY DATA: Labs from today show CBC with a hemoglobin of 12.2, hematocrit of 38.8, white blood cell count of 30.4, and platelet count of 128. ASSESSMENT/PLAN: The patient is over 2 weeks status post left dynamic hip screw procedure for intertrochanteric femur fracture. We originally had talked about taking her to the operating room today to wash out her wound, however, given her current state of health as of yesterday, it was felt that it would be better for her not to go under general anesthesia. We opted for wound VAC to the left wound instead. This has been ordered. This morning, the patient is not voicing changes in her DNR status and stating that she no longer wants to live. She also was telling me at bedside that she will decline the wound VAC. Palliative Care has been consulted. They will further discuss with the patient and the family the best route of care for her in the future. Job ID: [id number]
--- NOTE | 2019-04-13 11:21 | DIS ---
DATE OF ADMISSION: 03/26/2019 DATE OF DISCHARGE: 04/13/2019 PRIMARY CARE PHYSICIAN: [facility] Call admission. DISCHARGE DISPOSITION: Inpatient hospice facility. PRIMARY DISCHARGE DIAGNOSES: 1. Acute on chronic systolic congestive heart failure. 2. Hyponatremia. 3. Intertrochanteric fracture, status post surgical repair. 4. Acute kidney failure. SECONDARY DISCHARGE DIAGNOSES: Moderate protein-calorie malnutrition, severe mitral regurgitation, hypothyroidism, gastroesophageal reflux disease, chronic obstructive pulmonary disease, celiac disease, atrial fibrillation. PRIMARY PROCEDURE/OPERATION: Dr. Charbel Wiley did a surgical repair for intertrochanteric fracture with open reduction and internal fixation. RADIOLOGICAL INVESTIGATION: Hip x-ray, pelvis x-ray, chest x-ray, echocardiography. SIGNIFICANT LABORATORY DATA: Hemoglobin 12.2, platelet 128, WBC 13.4. INR 2.3. Sodium 128, potassium 5.1, BUN 106, creatinine 1.81, calcium 8.5. Urinalysis unremarkable. DISCHARGE MEDICATIONS: The patient is planned for discharge to hospice facility for comfort care. Prior to arrival to the hospital, the patient is on following medications: 1. Amiodarone 200 mg daily. 2. Aspirin 81 mg p.o. daily. 3. Coreg 3.125 mg b.i.d. 4. Flonase nasal spray daily. 5. Advair inhalation b.i.d. 6. DuoNeb b.i.d. 7. Synthroid 100 mcg daily. 8. Singulair 10 mg at bedtime. 9. Omeprazole 40 mg daily. 10. Potassium chloride 20 mEq p.o. daily. 11. Zocor 40 mg p.o. at bedtime. 12. Warfarin as per home dose. CONTRAINDICATION: None. The patient is not on a beta-jocelynn, SAM inhibitor, ARB because of hypotension as well as the patient is on palliative care and comfort care only. INPATIENT SURGICAL SCRUB TECHNICIAN: Orthopedic physician, Trauma Team. Cardiology group was following while in hospital. Palliative Care was also consulted. HOSPITAL COURSE: A 68-year-old female who was admitted initially under Trauma service. The patient had an intertrochanteric fracture that was repaired by Dr. Wiley on March 27, 2019. The patient remained in the hospital and Sound Team was consulted on April 06, 2019. Before that, Cardiology was managing heart failure. The patient was requiring dobutamine drip and subsequently that drip was discontinued. The patient was made DNR. The patient does not want to be CPR done or any kind of heroic measure to be done in case of cardiopulmonary arrest. This patient has given up. She does not want to continue any specific treatment for her cardiac condition and rather she wanted to be comfortable and that is why out of hospital paperwork was done. The patient was made DNR. The patient will be discharged to hospice facility. This patient is not on any SAM inhibitor, ARB, or cardiac medication like beta-jocelynn because of her low blood pressure and that is why contraindicated. Cardiology recommended to continue digoxin therapy. We added iron sulfate for her anemia, gabapentin 100 mg p.o. t.i.d. was added. The patient will continue warfarin if needed. At this point, the patient is going for comfort care and hospice facility. Whether all the specific treatment needs to be continued or not, hospice team will decide. I have seen and examined the patient at bedside today. Plan of care discussed with the family member as well. Paperwork for discharge done. Job ID: [id number]
--- NOTE | 2019-04-13 11:41 | PDOC.PN ---
- Subjective Encounter Start Date: 04/13/19 Encounter Start Time: 10:10 pt wants DNR, comfort care, Patient seen and examined. No overnight events - Objective Resuscitation Status - Order Detail: 04/13/19 10:10 Resuscitation Status Routine Co-Sign Provider: Resuscitation Status: DNAR: NO Resuscitation Discussed with: Patient, Niko and Rayhu Mazariegos, Ms Buddy (patient sister) Additional comments: Patient, Tiffany Woodard, myself, daughter, son-in,law, and sister present for conversation in relation to patient desiring to stop all care with the exception of comfort measures, to be a DNAR, and transition to hospice services. MAR Reviewed: Yes Vital Signs & Weight: Vital Signs (12 hours) Temp Pulse Pulse Ox 04/13/19 10:24 97.2 F L 04/13/19 09:15 73 04/13/19 08:00 93 L 04/13/19 07:31 98.7 F 04/13/19 03:42 98.6 F 04/12/19 23:50 98.6 F Weight Admit Weight 85 lb 8 oz Weight 104 lb 2 oz Most Recent Monitor Data Heart Rate from ECG 76 NIBP 126/62 NIBP BP-Mean 83 Respiration from ECG 28 SpO2 90 I&O: 04/12/19 04/13/19 04/14/19 06:59 06:59 06:59 Intake Total 1390 1245 Balance 1390 1245 Result Diagrams: 04/13/19 05:10 04/13/19 05:10 EKG Reviewed by me: Yes Phys Exam - Physical Examination Constitutional: NAD HEENT: moist MMs Neck: no JVD, supple Respiratory: no wheezing, no rales, no rhonchi Cardiovascular: RRR, no significant murmur, no rub Gastrointestinal: soft, non-tender, no distention Musculoskeletal: no edema, pulses present Neurological: non-focal Lymphatic: no nodes Skin: no rash, normal turgor Dx/Plan (1) Acute on chronic systolic ACC/AHA stage C congestive heart failure Code(s): I50.23 - ACUTE ON CHRONIC SYSTOLIC (CONGESTIVE) HEART FAILURE Status : Acute (2) Hyponatremia Code(s): E87.1 - HYPO-OSMOLALITY AND HYPONATREMIA Status: Acute Comment: due to SIADH, heart failure, and protein calory malnutrition (3) Intertrochanteric fracture Code(s): S72.143A - DISPLACED INTERTROCHANTERIC FRACTURE OF UNSP FEMUR, INIT Status: Acute Comment: s/p surgical repair (4) Atrial fibrillation Code(s): I48.91 - UNSPECIFIED ATRIAL FIBRILLATION Status: Chronic Qualifiers: Atrial fibrillation type: paroxysmal Qualified Code(s): I48.0 - Paroxysmal atrial fibrillation (5) COPD (chronic obstructive pulmonary disease) Status: Chronic (6) Celiac disease Code(s): K90.0 - CELIAC DISEASE Status: Chronic (7) GERD (gastroesophageal reflux disease) Code(s): K21.9 - GASTRO-ESOPHAGEAL REFLUX DISEASE WITHOUT ESOPHAGITIS Status: Chronic (8) Hypothyroidism Code(s): E03.9 - HYPOTHYROIDISM, UNSPECIFIED Status: Chronic (9) SLE (systemic lupus erythematosus) Code(s): M32.9 - SYSTEMIC LUPUS ERYTHEMATOSUS, UNSPECIFIED Status: Chronic (10) Severe mitral regurgitation Code(s): I34.0 - NONRHEUMATIC MITRAL (VALVE) INSUFFICIENCY Status: Chronic (11) Protein-calorie malnutrition, moderate Code(s): E44.0 - MODERATE PROTEIN-CALORIE MALNUTRITION Status: Chronic - Plan cont current plan of care, plan discussed w/ family, social work msw * hospice arrangement and then will DC * medication reviewed as below * symptomatic treatment. Review of Systems - Review of Systems Constitutional: weakness, malaise. negative: fever, chills, sweats, other Respiratory: SOB with Excertion. negative: Cough, Dry, Shortness of Breath, Hemoptysis, Pleuritic Pain, Sputum, Wheezing Cardiovascular: negative: chest pain, palpitations, orthopnea, paroxysmal nocturnal dyspnea, edema, light headedness, other Gastrointestinal: negative: Nausea, Vomiting, Abdominal Pain, Diarrhea, Constipation, Melena, Hematochezia, Other Genitourinary: negative: Dysuria, Frequency, Incontinence, Hematuria, Retention , Other - Medications/Allergies Allergies/Adverse Reactions: Allergies Allergy/AdvReac Type Severity Reaction Status Date / Time gluten Allergy Verified 03/26/19 04:01 ibuprofen AdvReac Verified 03/26/19 07:28 Medications: Current Medications Acetaminophen (Tylenol) 500 mg PO Q6H PRN PRN Reason: Mild Pain (1-3) Last Admin: 04/11/19 08:38 Dose: 500 mg Acetaminophen/Codeine Phosphate (Tylenol #3) 1 tab PO Q6H PRN PRN Reason: Pain Last Admin: 04/12/19 12:25 Dose: 1 tab Al Hydroxide/Mg Hydroxide (Maalox) 30 ml PO Q6H PRN PRN Reason: Heartburn or Indigestion Last Admin: 04/10/19 05:42 Dose: 30 ml Albuterol/Ipratropium (Duoneb) 3 ml EZPAP G5MP-QS PRN PRN Reason: SOB &/or Wheezing Amiodarone HCl (Cordarone) 200 mg PO 2100 [facility] Last Admin: 04/12/19 21:25 Dose: Not Given Ascorbic Acid (Vitamin C) 500 mg PO BID-[facility] Last Admin: 04/13/19 09:14 Dose: 500 mg Atorvastatin Calcium (Lipitor) 20 mg PO HS [facility] Last Admin: 04/12/19 21:25 Dose: 20 mg Calcium Carbonate (Tums) 1,000 mg PO QIDPRN PRN PRN Reason: . Last Admin: 04/09/19 09:24 Dose: 1,000 mg Dextrose/Water (Dextrose 50%) 25 gm SLOW IVP PRN PRN PRN Reason: Hypoglycemia Digoxin (Lanoxin) 0.125 mg PO QAM [facility] Last Admin: 04/13/19 09:15 Dose: 0.125 mg Ferrous Sulfate (Feosol) 325 mg PO BID-[facility] Last Admin: 04/13/19 09:14 Dose: 325 mg Fluticasone Propionate (Flonase Nasal [place]) 0 gm NASAL DAILY [facility] Last Admin: 04/13/19 09:15 Dose: 1 spr Gabapentin (Neurontin) 100 mg PO TID [facility] Last Admin: 04/13/19 09:15 Dose: 100 mg Glucagon (Glucagon) 1 mg IM PRN PRN PRN Reason: Hypoglycemia Hydralazine HCl (Apresoline) 10 mg SLOW IVP Q4H PRN PRN Reason: SBP > 170 or DBP > 100 Dextrose/Water (D5w) 1,000 mls @ 0 mls/hr IV .Q0M PRN PRN Reason: Hypoglycemia Levothyroxine Sodium (Synthroid) 50 mcg PO SuSa@0600 [facility] Last Admin: 04/10/19 05:42 Dose: 50 mcg Levothyroxine Sodium (Synthroid) 100 mcg PO MoTuWeThFr@0600 [facility] Last Admin: 04/13/19 05:22 Dose: 100 mcg Loratadine (Claritin) 10 mg PO DAILY [facility] Last Admin: 04/13/19 09:15 Dose: 10 mg Magnesium Hydroxide (Milk Of Magnesium) 30 ml PO DAILYPRN PRN PRN Reason: Constipation Miscellaneous Medication (Pharmacy To Dose) 0 each PO 1700 [facility] Last Admin: 04/12/19 17:22 Dose: Not Given Montelukast Sodium (Singulair) 10 mg PO HS [facility] Last Admin: 04/12/19 21:25 Dose: 10 mg Ondansetron HCl (Zofran Odt) 4 mg PO Q6H PRN PRN Reason: Nausea/Vomiting Last Admin: 03/28/19 23:51 Dose: 4 mg Ondansetron HCl (Zofran) 4 mg IVP Q6H PRN PRN Reason: Nausea Last Admin: 03/26/19 13:45 Dose: 4 mg Pantoprazole Sodium (Protonix) 40 mg PO 2100 [facility] Last Admin: 04/12/19 21:25 Dose: 40 mg Potassium Chloride (Klor-Con 10) 10 meq PO BID-[facility] Last Admin: 04/13/19 09:15 Dose: 10 meq Sodium Chloride (Flush - Normal Saline) 10 ml IVF PRN PRN PRN Reason: Saline Flush Last Admin: 04/12/19 21:24 Dose: 10 ml Tramadol HCl (Ultram) 50 mg PO Q6HR PRN PRN Reason: Pain Last Admin: 04/13/19 09:15 Dose: 50 mg Warfarin Sodium (Coumadin) 1 mg PO MoWeFr@1700 [facility] Last Admin: 04/11/19 16:45 Dose: 1 mg Warfarin Sodium (Coumadin) 2 mg PO SuTuThSa@1700 [facility] Last Admin: 04/12/19 17:11 Dose: 2 mg
[2019-04-13 15:15] VITALS: TEMP 97.9
--- NOTE | 2019-04-13 16:41 | PDOC.PALFU ---
Palliative Care Follow-up Note Follow up visit with Patient, her daughter Ray and son-in-law, sister Ms Goodwin and Tiffany Woodard RNbee farmer. Discussion was with family and patient / Patient confirmed that she wanted to transition to a DNAR status and Hospice Services for Palliative Care. Coordinated with P[facility]O [facility] and nurse caring for judd. [employer] contacted to deactivate AICD. Dr Saunders notified of patient wishes. Hospice choice letter signed, family is requesting eval from [facility] and to consider GIP. *DNAR status updated *OOHDNAR *Choice letter to [facility] *[employer] to deactivate AICD and nurse had magnet to use until this is carried out. *Support provided to patient and family
[2019-04-13] MEDS: Warfarin Sodium 1 MG TAB PO SCH (18:36)
--- NOTE | 2019-04-14 08:01 | DIS ---
DATE OF ADMISSION: 03/26/2019 DATE OF DISCHARGE: 04/13/2019 Please see my discharge summary dictated for more detail. The patient was planned for discharging to inpatient hospice facility after the patient decided to be comfort care and DNR, but before the patient can go to inpatient hospice facility, she . Date of was April 13, 2019, and time is 5:00 p.m. Cause of was acute on chronic systolic congestive heart failure, acute kidney failure. Contributing diagnosis, protein calorie malnutrition, severe mitral regurgitation, atrial fibrillation, chronic obstructive pulmonary disease, hyponatremia. was pronounced by charge nurse. Body was released for . Job ID: [id number]
--- NOTE | 2019-04-15 11:09 | PQF ---
[employer] Win[employer] BAILEY Estrada BRYANNA GARCIA MD [id number] [facility]- [id number] CLINICAL DOCUMENTATION CLARIFICATION FORM: POST DISCHARGE Addendum to original discharge summary date: ____ Late entry note date: __ DATE: 04/15/19 ATTN: BRYANNA GARCIA MD Please exercise your independent, professional judgment in responding to the clarification form. Clinical indicators are provided on the bottom of this form for your review Please check appropriate box(s): [ ] Acute Respiratory Failure: [ ] with Hypoxia[ ] with Hypercapnia [ ] Acute On Chronic Respiratory Failure: [ ] with Hypoxia [ ] with Hypercapnia [ x ] Acute Respiratory Failure due to: (etiology) __due to acute systolic CHF _ [ ] ARDS (Acute Respiratory Distress Syndrome) [ ] Chronic Respiratory Failure only [ ] with Hypoxia [ ] with Hypercapnia [ ] Hypoxia [ ] Other diagnosis [ ] Unable to determine In addition, please specify: Present on Admission (POA): [ x ] Yes [ ] No [ ] Unable to determine For continuity of documentation, please document condition throughout progress notes and discharge summary. Thank You. CLINICAL INDICATORS - SIGNS / SYMPTOMS / LABS SpO2 of 88% on room air-PN, 03/28, Lidia Dunn MD SpO2 of 85% on room air, 93 % with 4L nasal canula-PN, 03/29, Lidia Dunn MD COPD Exacerbation-PN, 03/29, Lidia Dunn MD The pt became hypoxic yesterday afternoon --PN, 03/30, Lidia Dunn MD Prolonged expiratory phase-PN, 03/31, Lidia Dunn MD RISK FACTORS Heart failure and acute exacerbation-PN, 03/31, Lidia Dunn MD COPD Exacerbation-PN, 03/29, Lidia dunn MD S/p mechanical fall post op day 4 from [facility]-PN, 03/31, Lidia Dunn MD TREATMENTS: Requesting Duoneb treatments this morning-PN, 03/29, Lidia Dunn MD High-flow nasal cannula at 35-PN, 03/30, Lidia Dunn MD Hydrocortisone 25mg IV-PN, 03/30, Lidia Dunn MD [employer] Win[employer] (This form is maintained as a part of the permanent medical record) 2014 [employer]. All Rights Reserved Isabella Roman [not provided] [not provided] MTDD
== END 2019-04-13 17:00 | disposition expired | DRG 956 ==
LOC: ERS 20:45 → SURG B 03-26 00:49 → IMCU/EMU 03-29 12:23
PROVIDERS: ADMIT Specialist; ATTEND Specialist
PROC: 0QS704Z Reposition Left Upper Femur with Internal Fixation Device, Open Approach (ICD-10-PCS; principal; 2019-03-27)
DX: S72.142A Displaced intertrochanteric fracture of left femur, initial encounter for closed fracture (principal); S32.511A Fracture of superior rim of right pubis, initial encounter for closed fracture; E43 Unspecified severe protein-calorie malnutrition; I50.43 Acute on chronic combined systolic (congestive) and diastolic (congestive) heart failure; J96.00 Acute respiratory failure, unspecified whether with hypoxia or hypercapnia; I13.0 Hypertensive heart and chronic kidney disease with heart failure and stage 1 through stage 4 chronic kidney disease, or unspecified chronic kidney disease; S32.392A Other fracture of left ilium, initial encounter for closed fracture; S32.10XA Unspecified fracture of sacrum, initial encounter for closed fracture; N17.9 Acute kidney failure, unspecified; E87.1 Hypo-osmolality and hyponatremia; J44.1 Chronic obstructive pulmonary disease with (acute) exacerbation; Z68.1 Body mass index [BMI] 19.9 or less, adult; E87.3 Alkalosis; Z51.5 Encounter for palliative care; Z66 Do not resuscitate; I34.0 Nonrheumatic mitral (valve) insufficiency; I25.10 Atherosclerotic heart disease of native coronary artery without angina pectoris; J45.909 Unspecified asthma, uncomplicated; E78.5 Hyperlipidemia, unspecified; I25.5 Ischemic cardiomyopathy; M81.0 Age-related osteoporosis without current pathological fracture; L93.0 Discoid lupus erythematosus; N18.2 Chronic kidney disease, stage 2 (mild); I48.2 Chronic atrial fibrillation; D63.1 Anemia in chronic kidney disease; W18.30XA Fall on same level, unspecified, initial encounter; K59.00 Constipation, unspecified; E87.6 Hypokalemia; K21.9 Gastro-esophageal reflux disease without esophagitis; I95.9 Hypotension, unspecified; Z79.01 Long term (current) use of anticoagulants; Y93.89 Activity, other specified; Y92.89 Other specified places as the place of occurrence of the external cause; Z87.11 Personal history of peptic ulcer disease; I25.2 Old myocardial infarction; Z90.710 Acquired absence of both cervix and uterus; Z95.1 Presence of aortocoronary bypass graft; Z95.0 Presence of cardiac pacemaker
CPT/HCPCS: 36415; 36430; 51702; 71045; 72170; 76000; 80048; 80053; 81003; 82533; 82805; 83605; 83735; 83880; 84100; 85025; 85027; 85610; 85730; 86850; 86900; 86901; 93005; 93306; 94640; 94660; 94664; 96361; 96374; 96375; C1713; C1769; J0131; J0690; J1100; J1160; J1170; J1250; J1265; J1720; J1940; J2001; J2270; J2405; J2704; J2920; J2930; J3010; J3430; J7620; P9016; Q0162